=== PATIENT | male | born 1955 | race Caucasian/White ===

== ENCOUNTER 2020-07-18 09:08 | Outpatient (REF) | payer OTHER, SELFPAY ==
[2020-07-18 12:24] LABS: Anion Gap 14 (12-20); Blood Urea Nitrogen 18 mg/dL (9-16); Calcium 9.1 mg/dL (8.4-10.2); Carbon Dioxide 27 mmol/L (22-29); Chloride 103 mmol/L (96-108); Cholesterol 204 mg/dL; Estimated Glomerular Filt Rate > 60; Glucose Fasting 98 mg/dL (60-99); HDL Cholesterol 42 mg/dL; LDL Cholesterol Calculated 135 mg/dl; Potassium 4.7 mmol/l (3.3-5.1); Sodium 139 mmol/L (135-145); Triglycerides 139 mg/dL
[2020-07-18 12:47] LABS: TSH reflex Free T4 1.34 mIU/mL (0.32-4.0)
== END 2020-07-18 09:09 | disposition home or self-care (01) ==
LOC: HO.HMGCLDS 09:08
PROVIDERS: PCP Nurse Practitioner Family; Visit Provider Nurse Practitioner Family
DX: Z12.5 Encounter for screening for malignant neoplasm of prostate (principal); Z00.00 Encounter for general adult medical examination without abnormal findings
CPT/HCPCS: 80048; 80061; 84153; 84443

== ENCOUNTER 2021-01-10 09:07 | Outpatient (REF) | payer MEDICARE, SELFPAY ==
[2021-01-10 11:59] LABS: Alanine Aminotransferase 36 U/L (0-40); Albumin Level 4.5 g/dL (3.5-5.0); Alkaline Phosphatase 59 U/L (39-117); Anion Gap 14 (12-20); Aspartate Amino Transferase 30 U/L (5-37); Bilirubin Total 1.3 mg/dL (0.0-1.0); Blood Urea Nitrogen 19 mg/dL (9-16); Calcium 9.3 mg/dL (8.4-10.2); Carbon Dioxide 28 mmol/L (22-29); Chloride 103 mmol/L (96-108); Cholesterol 193 mg/dL; Estimated Glomerular Filt Rate > 60; Glucose Fasting 98 mg/dL (60-99); HDL Cholesterol 44 mg/dL; LDL Cholesterol Calculated 107 mg/dl; Potassium 4.1 mmol/L (3.3-5.1); Sodium 141 mmol/L (135-145); Total Protein 7.1 g/dL (6.5-8.0); Triglycerides 213 mg/dL
== END 2021-01-10 09:08 | disposition home or self-care (01) ==
LOC: HO.HMGCLDS 09:07
PROVIDERS: PCP Nurse Practitioner Family; Visit Provider Nurse Practitioner Family
DX: R00.1 Bradycardia, unspecified (principal)
CPT/HCPCS: 36415; 80053; 80061; 84443

== ENCOUNTER → 2021-02-15 09:09 | Outpatient (BNVA) | payer MEDICARE, SELFPAY | PROVIDERS: PCP Nurse Practitioner Family; Referring Provider Nurse Practitioner Family; Visit Provider Internal Medicine | DX: R00.1 Bradycardia, unspecified (principal); I10 Essential (primary) hypertension; Z79.899 Other long term (current) drug therapy | CPT/HCPCS: 99202 ==

== ENCOUNTER → 2021-02-21 08:30 | Outpatient (REF) | payer MEDICARE, SELFPAY ==
--- NOTE | 2021-02-21 08:34 | CA_ITS ---
Acquisition Time: 2021-02-21 08:45:24 Total Exercise Time: 00:09:31 Test Indications: BRADYCARDIA Medications: Protocol: DILCIA Max HR: 133 BPM 85% of Pred: 155 BPM Max BP: 178/082 mmHG Max Work Load: 10.9 METS Exercise stress test with exercise 9 min 31 sec of Dilcia protocol, without anginal symptoms, with isolated PVC 's and runs of ventricular bigeminy, mostly in stage 2, with blunted BP response with max BP during exercise 158/64 as reported by Tech and normal chronotropic response, achieving 87% MPHR, without EKG changes meeting criteria for ischemia. Test reviewed with Dr Fajardo. Referred By: Capo Fajardo Overread By: GENA RUBIO
--- NOTE | 2021-02-21 09:00 | ECG_ITS ---
Hook-up date: 2021-02-21 09:51:00 Duration: 25:22:00 Test Indications: UNSPEC. BRADYCARDIA Medications: 71514 QRS complexes 71 Ventricular ectopics which represent <1 % of total QRS comp. 337 Supraventricular ectopics which represent <1 % of total QRS comp. * Paced QRS complexs which represent % of total QRS comp. VENTRICULAR ECTOPY 71 Isolated 3 Bigeminal Cycles 0 Couplets 0 Runs 0 Beats in Runs * Beats LONGEST at * BPM at :: -- * Beats FASTEST at * BPM at :: -- SUPRAVENTRICULAR ECTOPY 306 Isolated 11 Couplets 3 Runs 9 Beats in Runs 3 Beats LONGEST at 163 BPM at 18:04:01 2021-02-21 3 Beats FASTEST at 189 BPM at 01:23:44 2021-02-22 HEART RATES 38 MIN at 02:17:59 2021-02-22 61 AVG 138 MAX at 11:55:40 2021-02-21 LONGEST RR 1.6880 secs at 02:24:12 2021-02-22 S-T LEVELS Channel 1 - 128 mm at 09:51:00 2021-02-21 - 128 mm at 09:51:00 2021-02-21 Channel 2 - 128 mm at 09:51:00 2021-02-21 - 128 mm at 09:51:00 2021-02-21 Channel 3 - 128 mm at 02:91:01 -- - 128 mm at 02:91:01 Underlying rhythm is sinus; Average ventriculr rate 61/min with range 38-138/min; About 45% of the time, rate <60/min; Likely sinus tachycardia episodes; Bradycardia more prominent during sleep hours; Patient did not report any symptoms in the diary Referred By: Laz Casillas Overread By: LAZ CASILLAS
== END ==
LOC: HO.CARD 08:30
PROVIDERS: Visit Provider Internal Medicine
DX: R00.1 Bradycardia, unspecified (principal)
CPT/HCPCS: 93016; 93017; 93018; 93225; 93226

== ENCOUNTER → 2021-04-09 09:15 | Outpatient (REF) | payer MEDICARE, SELFPAY ==
--- NOTE | 2021-04-09 09:24 | CA_ITS ---
Transthoracic Echocardiogram Patient (Last, First, Middle): Dimitri Chopra J Gender: Male Date of : 1955 Age: 65 Procedure Date: 04/09/2021 Procedure Type: Transthoracic Echocardiogram Location: OP Height: 167.64 cm Weight: 70.31 kg BSA: 1.79 m2 Heart Rate: bpm BP: 132 / 74 mmHg Tape Calender: Referring MD: Capo Fajardo MD Symptoms: R00.1 - Bradycardia, unspecified Study Quality: Good ECG Rhythm: Sinus bradycardia Conclusions: - The left ventricular systolic function is normal. The calculated ejection fraction is 58% by biplane method. - No obvious valvular pathology seen on this study. Findings Left Ventricle Normal left ventricular cavity size. There is normal left ventricular wall thickness. The left ventricular systolic function is normal. The calculated ejection fraction is 58% by biplane method. There is no evidence of regional wall motion abnormalities. Diastolic function is normal for age. Right Ventricle Normal right ventricular cavity size and systolic function. Atria Both atria are normal in size. Aortic Valve There is a normal trileaflet aortic valve. There is no aortic valve stenosis. There is no aortic valve regurgitation. Mitral Valve The mitral valve appears normal. There is trace mitral valve regurgitation. There is no mitral valve stenosis. Pulmonic Valve The pulmonic valve was not well visualized. There is trace pulmonic valve regurgitation. Tricuspid Valve Normal tricuspid valve structure. There is trace tricuspid valve regurgitation. The pulmonary artery systolic pressure is normal. Great Vessels The aortic annulus, sinuses of valsalva, and asc aorta are normal in size. Venous The inferior vena cava is normal in size and collapses greater than 50% with inspiration. Pericardium/Pleural There is no evidence of pericardial effusion. Prior Study Comparison No prior study available for comparison. Recommendations, Care & Conclusions No obvious valvular pathology seen on this study. Measurements 2D Linear Measurements RVIDd: 3.32 RVIDd Index: 1.85 IVSd: 1.04 0.6-0.9/0.6-1.0 cm LVIDd: 4.34 3.9-5.3/4.2-5.9 cm LVIDd Index: 2.42 2.4-3.2/2.2-3.1 cm/m2 LVIDs: 3.18 2.0-3.6 cm LVPWd: 1.05 0.7-1.1 cm Ao Root: 3.30 2.1-3.5 cm LA Diam: 3.40 2.7-3.8/3.0-4.0 cm LAIDs Index: 1.90 1.5-2.3 cm/m2 LV Mass: 191.47 67-162/88-224 g LV Mass Index: 106.96 43-95/49-115 g/m2 LVOT Diam: 2.40 3.0+(-)1.3 cm 2D Systolic Function EF 4C: 58.80 >55% EF 2C: 56.50 >55% EF BiP: 57.70 >55% Mitral Valve MV Pk E: 0.48 MV PK A: 0.60 MV Decel Time: 445.00 E/A: 0.80 E'Lateral: 9.57 E'Medial: 6.85 E/E' Med: 7.00 E/E' Lat: 5.00 Aortic Valve AoV Pk Patricio: 1.25 AoV Mn Patricio: 0.93 AoV VTI: 0.27 AoV Pk Grad: 6.00 Aov Mn Grad: 4.00 SARAVANAN Cont.VTI: 2.82 LVOT LVOT Pk Patricio: 0.91 LVOT Mn Patricio: 0.52 LVOT VTI: 0.17 LVOT Pk Grad: 3.00 LVOT Mn Grad: 1.00 LVOT Diam: 2.40 LVOT Area: 4.52 Diastolic Function MV Pk E: 0.48 MV Pk A: 0.60 E/A: 0.80 E'Medial: 6.85 E/E' Med: 7.00 E' Laterial: 9.57 E/E' Lat: 5.00 Tricuspid Valve TR Pk Patricio: 2.62 TR Pk Grad: 27.00 RA Press: 3.00 RVSP: 30.00 Great Vessels Aorta Ao Root-2D: 3.30 2.0-3.7 cm Ao Asc: 3.30 2.1-3.4 cm Ao Arch: 2.50 Updated in Other Vendor System with Status of Final Capo Fajardo MD electronically signed on 04/09/2021 10:55:52 AM with status of Final
== END ==
LOC: HO.CARD 09:15
PROVIDERS: PCP Nurse Practitioner Family; Visit Provider Internal Medicine
DX: R00.1 Bradycardia, unspecified (principal)
CPT/HCPCS: 93306

== ENCOUNTER → 2021-04-30 08:10 | Outpatient (BNVA) | payer MEDICARE, SELFPAY | PROVIDERS: PCP Nurse Practitioner Family; Referring Provider Nurse Practitioner Family; Visit Provider Internal Medicine | DX: R00.1 Bradycardia, unspecified (principal); I10 Essential (primary) hypertension | CPT/HCPCS: 99212 ==

== ENCOUNTER 2021-07-16 08:29 | Outpatient (REF) | payer MEDICARE, SELFPAY ==
[2021-07-16 11:42] LABS: Appearance Urine HAZY; Color Urine YELLOW; Glucose Urine UA NEG (NEG); Leukocyte Esterase Urine NEG (NEG); Nitrite Urine NEG (NEG); PH 5.5 (5.0-8.0); Specific Gravity - Urine >= 1.030 (1.005-1.025); Urine Blood NEG (NEG); Urine Ketones NEG (NEG); Urine Protein TRACE MG/DL (NEG-TRACE)
[2021-07-16 12:06] LABS: Alanine Aminotransferase 78 U/L (0-40); Albumin Level 4.8 g/dL (3.5-5.0); Alkaline Phosphatase 75 U/L (39-117); Anion Gap 15 (12-20); Aspartate Amino Transferase 70 U/L (5-37); Bilirubin Total 0.6 mg/dL (0.0-1.0); Blood Urea Nitrogen 13 mg/dL (9-16); Calcium 8.9 mg/dL (8.4-10.2); Carbon Dioxide 22 mmol/L (22-29); Chloride 106 mmol/L (96-108); Cholesterol 228 mg/dL; Estimated Glomerular Filt Rate > 60; Glucose Fasting 112 mg/dL (60-99); HDL Cholesterol 39 mg/dL; LDL Cholesterol Calculated 113 mg/dl; Potassium 4.4 mmol/L (3.3-5.1); Sodium 139 mmol/L (135-145); Total Protein 7.6 g/dL (6.5-8.0); Triglycerides 381 mg/dL
[2021-07-16 12:11] LABS: Prostate Specific Antigen Scr 0.35 ng/mL (<0.05-4.0)
== END 2021-07-16 08:30 | disposition home or self-care (01) ==
LOC: HO.HMGCLDS 08:29
PROVIDERS: PCP Nurse Practitioner Family; Visit Provider Nurse Practitioner Family
DX: Z12.5 Encounter for screening for malignant neoplasm of prostate (principal); I10 Essential (primary) hypertension
CPT/HCPCS: 36415; 80053; 80061; 81003; 84153; 84443

== ENCOUNTER 2021-10-10 14:06 | Outpatient (REF) | payer MEDICARE, SELFPAY ==
[2021-10-10 16:26] LABS: Alanine Aminotransferase 64 U/L (0-40); Albumin Level 4.3 g/dL (3.5-5.0); Alkaline Phosphatase 66 U/L (39-117); Aspartate Amino Transferase 46 U/L (5-37); Bilirubin Direct 0.3 mg/dL (0.0-0.5); Bilirubin Total 1.2 mg/dL (0.0-1.0); Total Protein 7.1 g/dL (6.5-8.0)
== END 2021-10-10 14:07 | disposition home or self-care (01) ==
LOC: HO.HMGCLDS 14:06
PROVIDERS: PCP Nurse Practitioner Family; Visit Provider Nurse Practitioner Family
DX: R74.8 Abnormal levels of other serum enzymes (principal)
CPT/HCPCS: 36415; 80076

== ENCOUNTER 2022-01-28 06:31 | Outpatient (REF) | payer MEDICARE, SELFPAY ==
--- NOTE | ~2022-01-28 | XR_ITS ---
EXAMINATION: XR CERVICAL SPINE CLINICAL INFORMATION: Cervical disc disorder COMPARISON: Previous x-ray November 2017 TECHNIQUE: 3 views of the cervical spine were obtained. FINDINGS: Bone alignment is normal. No fracture or dislocation is seen. There is degenerative spondylosis and degenerative disc disease from C4-C5 to C7-T1. Prevertebral soft tissues are normal. XR/XR cervical spine 2V IMPRESSION: Degenerative changes similar to 2018 exam.
[2022-01-28 06:48] LABS: MANUAL DIFF FLAG NO
[2022-01-28 07:36] LABS: Basophils Percent Auto 0.6 % (0-2); Eosinophils Absolute Auto 0.1 X10*3/uL (0.0-0.4); Eosinophils Percent Auto 2.5 % (0-4); Hematocrit 45.9 % (42.0-52.0); Imm Gran Abs Auto 0.01 X10*3/uL (0.00-0.03); Imm Gran Pct Auto 0.2 % (0.0-0.4); Lymphocytes Absolute Auto 1.5 X10*3/uL (1.2-4.9); Lymphocytes Percent Auto 30.7 % (20-40); Mean Corpuscular HGB Conc 34.9 g/dl (31.0-36.0); Mean Corpuscular Hemoglobin 30.5 pg (27.0-33.0); Mean Corpuscular Volume 87.4 fL (80.0-98.0); Mean Platelet Volume 9.4 fL (9.4-12.4); Monocytes Absolute Auto 0.5 X10*3/uL (0.1-1.2); Monocytes Percent Auto 10.3 % (2-11); Neutrophils Absolute Auto 2.6 x10*3/uL (2.0-8.3); Neutrophils Percent Auto 55.7 % (45-73); Platelet Count 146 X10*3/uL (160-400); Red Blood Count 5.25 X10*6/uL (4.60-5.80); Red Cell Distribution Width 12.8 % (11.0-16.0); White Blood Count 4.8 X10*3/uL (4.8-10.8)
[2022-01-28 08:01] LABS: Alanine Aminotransferase 49 U/L (0-40); Albumin Level 4.5 g/dL (3.5-5.0); Alkaline Phosphatase 70 U/L (39-117); Anion Gap 12 (12-20); Aspartate Amino Transferase 41 U/L (5-37); Bilirubin Total 1.4 mg/dL (0.0-1.0); Blood Urea Nitrogen 20 mg/dL (9-16); Calcium 9.5 mg/dL (8.4-10.2); Carbon Dioxide 28 mmol/L (22-29); Chloride 103 mmol/L (96-108); Cholesterol 214 mg/dL; Estimated Glomerular Filt Rate > 60; Glucose Fasting 104 mg/dL (60-99); HDL Cholesterol 39 mg/dL; LDL Cholesterol Calculated 143 mg/dl; Potassium 4.2 mmol/L (3.3-5.1); Sodium 139 mmol/L (135-145); Total Protein 7.3 g/dL (6.5-8.0); Triglycerides 162 mg/dL
[2022-01-28 08:29] LABS: TSH reflex Free T4 2.01 uIU/mL (0.32-4.0)
[2022-01-28 08:42] LABS: Appearance Urine CLEAR; Color Urine YELLOW; Glucose Urine UA NEG (NEG); Leukocyte Esterase Urine NEG (NEG); Nitrite Urine NEG (NEG); Specific Gravity - Urine 1.025 (1.005-1.025); Urine Blood NEG (NEG); Urine Ketones NEG (NEG); Urine Protein NEG (NEG-TRACE)
== END 2022-01-28 06:32 | disposition home or self-care (01) ==
LOC: HO.LAB 06:31
PROVIDERS: PCP Nurse Practitioner Family; Visit Provider Nurse Practitioner Family
DX: I10 Essential (primary) hypertension (principal); M50.90 Cervical disc disorder, unspecified, unspecified cervical region
CPT/HCPCS: 36415; 72040; 80053; 80061; 81003; 84443; 85025

== ENCOUNTER → 2022-01-29 12:23 | Outpatient (BNVA) | payer MEDICARE, SELFPAY | PROVIDERS: PCP Nurse Practitioner Family; Referring Provider Nurse Practitioner Family; Visit Provider Internal Medicine | DX: R00.1 Bradycardia, unspecified (principal); I10 Essential (primary) hypertension; G47.33 Obstructive sleep apnea (adult) (pediatric); Z79.899 Other long term (current) drug therapy | CPT/HCPCS: 93005; 99212 ==

== ENCOUNTER → 2022-02-27 10:01 | Outpatient (REF) | payer MEDICARE, SELFPAY ==
--- NOTE | 2022-02-27 10:18 | CA_ITS ---
Acquisition Time: 2022-02-27 10:57:33 Total Exercise Time: 00:08:42 Test Indications: bradycardia, unspecified Medications: Protocol: DILCIA Max HR: 142 BPM 92% of Pred: 154 BPM Max BP: 146/080 mmHG Max Work Load: 10.1 METS Exercise stress test with exercise 8 min 24 sec of Dilcia protocol achieving 92% MPHR. 10.1 METs, with request to stop due to fatigue, without shortness of breath or chest discomfort, with isolated PVCs, with accelerated junctional rhythm during all exercise and early recovery, with normotensive and normal chronotropic response to exercise, with borderline ST depression noted V4-V6 during exercise and early recovery. Test reviewed with Dr Fajardo Will order an exercise nuclear stress test to further eval for ischemia. Referred By: Capo Fajardo Overread By: GENA RUBIO
--- NOTE | 2022-02-27 10:18 | HM_ITS ---
Conclusion: 1. Patient was monitored for total period of 2 days and 23 hours 2. Baseline rhythm is normal sinus rhythm with average heart of 56 beats per minute 3. Frequent sinus bradycardia noted without significant pauses 4. Total of 1271 PACs accounting for 0.52% of total beats accounting for occasional PACs 5. Frequent episodes of SVT with longest episode lasting 2 minutes and 51 seconds at 117 beats per minute which could represent atrial tachycardia and/or ectopic atrial tachycardia 6. No patient reported events MTDD
== END ==
LOC: HO.SL 10:01
PROVIDERS: PCP Nurse Practitioner Family; Visit Provider Internal Medicine
DX: G47.33 Obstructive sleep apnea (adult) (pediatric) (principal); R00.1 Bradycardia, unspecified
CPT/HCPCS: 93017; 93242; 95806

== ENCOUNTER 2022-03-01 09:23 | Outpatient (REF) | payer MEDICARE, SELFPAY ==
[2022-03-02 09:06] LABS: Lyme Abs Screen <0.90 index
== END 2022-03-01 09:24 | disposition home or self-care (01) ==
LOC: HO.WFDLDS 09:23
PROVIDERS: Visit Provider Nurse Practitioner Family
DX: T14.8XXA Other injury of unspecified body region, initial encounter (principal); W57.XXXA Bitten or stung by nonvenomous insect and other nonvenomous arthropods, initial encounter
CPT/HCPCS: 36415; 86617; 86618

== ENCOUNTER → 2022-03-18 13:40 | Outpatient (BNVA) | payer MEDICARE, SELFPAY | PROVIDERS: PCP Nurse Practitioner Family; Visit Provider Internal Medicine | DX: G47.33 Obstructive sleep apnea (adult) (pediatric) (principal) | CPT/HCPCS: 99202 ==

== ENCOUNTER → 2022-03-26 07:53 | Outpatient (REF) | payer MEDICARE, SELFPAY ==
--- NOTE | ~2022-03-26 | NM_ITS ---
Exercise Myocardial perfusion study Indication: Abnormal cardiovascular study to evaluate for myocardial ischemia Technique: The patient was brought in for an exercise perfusion study on 03/26/2022. Patient performed exercise as per Kory protocol and was injected 25 mCi of sestamibi was given intravenously one target HR was achieved. Images were obtained using the SPECT gamma camera interlaced with the gating device. Images were obtained in supine position. Resting perfusion study was performed on 03/27/2022. Patient was administered 25 mCi of sestamibi intravenously at rest. Images were then obtained in supine position. Images obtained with and without CT attenuation. Total DLP 83 mGy-cm. Images were processed with the software and compared side to side in short axis, horizontal long axis and vertical long axis views. Findings: The stress perfusion study showed non attenuated images show mildly reduced uptake in the basal inferior wall of the LV myocardium. Remainder of the LV myocardium is normally perfused. Attenuation corrected images show mildly the apex of the LV myocardium.. The gated study shows normal LV systolic function with calculated LVEF of 60%. LV cavity is mildly dilated in size. The gated study shows normal systolic wall thickening and contraction of all segments. There is no transient ischemic dilation. Resting study shows nontender images show mildly reduced uptake in the basal inferior wall of the LV myocardium. Attenuation corrected images show diffusely reduced uptake in all segments intense subdiaphragmatic uptake interfering with inferior wall uptake. Gating at rest reveals normal systolic wall motion with ejection fraction at greater than 55%. The findings are consistent with likely normal myocardial perfusion. NM/NM cardiolite stress test Impression: 1. Normal myocardial perfusion 2. Gated LVEF is 60% 3. Transient ischemic dilatation not present Stress EKG is negative for ischemia
--- NOTE | 2022-03-26 07:57 | CA_ITS ---
Acquisition Time: 2022-03-26 08:04:27 Total Exercise Time: 00:09:30 Test Indications: Abnormal ECG Medications: ALLOPURINOL AMLODIPINE FLUOXETINE Protocol: DILCIA Max HR: 131 BPM 85% of Pred: 154 BPM Max BP: 136/080 mmHG Max Work Load: 10.1 METS Exercise stress test with exercise 9 min 30 sec of Dilcia protocol, ( stage 3 held for additional 30 sec), achieving 85% MPHR, without anginal symptoms, with lengthening of VA interval/ accelerated junctional rhythm during exercise, PVC and runs of bigeminy in early recovery, with normal VA interval at baseline and in later recovery, with blunted BP response to exercise, without EKG changes meeting criteria for ischemia. Nuclear images pending. Test reviewed with Dr Fajardo. Referred By: Sophia Colvin Overread By: SOPHIA COLVIN
== END ==
LOC: HO.CARD 07:53
PROVIDERS: PCP Nurse Practitioner Family; Visit Provider Nurse Practitioner Family
DX: I49.8 Other specified cardiac arrhythmias (principal); R94.39 Abnormal result of other cardiovascular function study; R00.1 Bradycardia, unspecified
CPT/HCPCS: 78452; 93017; A9500

== ENCOUNTER 2022-04-10 08:00 | Outpatient (RCR) | payer MEDICARE, SELFPAY ==
[2022-03-21 08:08] VITALS: BP 145/77; PULSE 45
--- NOTE | 2022-03-21 08:58 | MHC.PT.EP ---
[facility] [place] [facility] [place] [facility] [place] Office [address] [phone] F: [phone] F: [phone] F: [phone] F: [phone] Physical Therapy Plan of Care Date of Evaluation: Date of Surgery: NA Diagnosis: Cervical disc disorder, unspecified, unspecified cervical region Assessment: Dimitri is a 66 year old male who is referred to PT for cervical disc disease . He reports of having h/o chronic neck pain however his symptoms have gotten worse over the last 2 years. On PT examination he presented with 4/10 pain with neck rotation, bending, and lifting, TTP from C5 to C7, decreased joint mobility, decreased ROM- due pain and stiffness, decreased muscle strength, and altered posture. Due to these impairments he has difficulty performing ADLS requiring him to bend, lift and drive. He would benefit from skilled PT to address the aforementioned impairments and improve tolerance to functional activities. Pt recommended 2/week however due to high copay he would be coming only 1/week. Frequency and Duration: The patient will be seen 1/week for 8 weeks Short Term Goals: 1. Pt will be able to perform self mobs techniques to improve cervical rotation so as the enable with driving in 2 weeks. 2. Pt will have 50% decrease in pain at rest which will enable him to enjoy watching TV or read a book in 3 weeks. Outcomes Specialist Goals: 1. Pt will demonstrate an increase in scap and cervical muscle strength by 1 grade which will enable him to performing lifting with a pain no more than 2/10 in 6 weeks. 2. Pt will be independent with [facility] for symptom management and maintenance following d/c in 8 weeks. Treatment Plan: Modalities to reduce pain, spasms and effusion. Manual therapy to restore motion and function. Therapeutic exercise to improve strength and flexibility. Neuromuscular re-education for posture and balance. Therapeutic activities to return to functional activities of daily living. Electronically signed by: Cindy Henson PT DPT Please sign and return to therapist. Thank you for your referral.
--- NOTE | 2022-05-09 08:26 | MHC.PT.DC ---
[facility] [place] Office [place] Office [place] Office [address] Alok Sanchez [address] [phone] F: [phone] F: [phone] F: [phone] F: [phone] Physical Therapy Discharge Report Diagnosis: Cervical disc disorder, unspecified, unspecified cervical region Date of Surgery: NA Date of Evaluation: 03/21/22 Date of Discharge: 05/09/22 Treatments to Date: 4 Cancellations to Date: 0 No Shows to Date: 0 Discharge Status: Patient Elected to Stop Discharge Summary: Dimitri completed 4 PT visits. After about 4 visits he called and d/c himself. He did not provide any reason for d/c. Electronically signed by: Cindy Henson, PT DPT Please sign and return to therapist. Thank you for your referral.
== END 2022-05-09 08:26 | disposition home or self-care (01) ==
LOC: HO.PT 08:00
PROVIDERS: PCP Nurse Practitioner Family; Visit Provider Nurse Practitioner Family
DX: M50.90 Cervical disc disorder, unspecified, unspecified cervical region (principal)
CPT/HCPCS: 97112; 97140; 97161; 97530

== ENCOUNTER 2022-05-24 07:15 | Outpatient (REF) | payer MEDICARE, SELFPAY ==
[2022-05-24 07:29] LABS: MANUAL DIFF FLAG NO
[2022-05-24 07:33] LABS: Basophils Percent Auto 0.8 % (0-2); Eosinophils Absolute Auto 0.1 X10*3/uL (0.0-0.4); Eosinophils Percent Auto 2.4 % (0-4); Hematocrit 44.9 % (42.0-52.0); Hemoglobin 15.7 g/dl (14.0-18.0); Imm Gran Abs Auto 0.01 X10*3/uL (0.00-0.03); Imm Gran Pct Auto 0.2 % (0.0-0.4); Lymphocytes Absolute Auto 1.3 X10*3/uL (1.2-4.9); Mean Corpuscular Hemoglobin 30.5 pg (27.0-33.0); Mean Corpuscular Volume 87.2 fL (80.0-98.0); Mean Platelet Volume 8.8 fL (9.4-12.4); Monocytes Absolute Auto 0.6 X10*3/uL (0.1-1.2); Monocytes Percent Auto 11.3 % (2-11); Neutrophils Absolute Auto 2.9 x10*3/uL (2.0-8.3); Neutrophils Percent Auto 58.3 % (45-73); Platelet Count 153 X10*3/uL (160-400); Red Blood Count 5.15 X10*6/uL (4.60-5.80); Red Cell Distribution Width 12.6 % (11.0-16.0)
[2022-05-24 07:58] LABS: Alanine Aminotransferase 51 U/L (0-40); Albumin Level 4.4 g/dL (3.5-5.0); Alkaline Phosphatase 59 U/L (39-117); Anion Gap 12 (12-20); Aspartate Amino Transferase 40 U/L (5-37); Bilirubin Total 1.6 mg/dL (0.0-1.0); Blood Urea Nitrogen 18 mg/dL (9-16); Carbon Dioxide 28 mmol/L (22-29); Chloride 105 mmol/L (96-108); Cholesterol 162 mg/dL; Estimated Glomerular Filt Rate > 60; Glucose Fasting 110 mg/dL (60-99); HDL Cholesterol 46 mg/dL; LDL Cholesterol Calculated 92 mg/dl; Potassium 4.5 mmol/L (3.3-5.1); Sodium 140 mmol/L (135-145); Total Protein 6.8 g/dL (6.5-8.0); Triglycerides 124 mg/dL
== END 2022-05-24 07:16 | disposition home or self-care (01) ==
LOC: HO.LAB 07:15
PROVIDERS: PCP Nurse Practitioner Family; Visit Provider Nurse Practitioner Family
DX: R74.8 Abnormal levels of other serum enzymes (principal); E78.5 Hyperlipidemia, unspecified
CPT/HCPCS: 36415; 80053; 80061; 85025

== ENCOUNTER → 2022-05-28 12:32 | Outpatient (BNVA) | payer MEDICARE, SELFPAY | PROVIDERS: PCP Nurse Practitioner Family; Referring Provider Nurse Practitioner Family; Visit Provider Internal Medicine | DX: R00.1 Bradycardia, unspecified (principal); G47.33 Obstructive sleep apnea (adult) (pediatric); I10 Essential (primary) hypertension | CPT/HCPCS: 99212 ==

== ENCOUNTER → 2022-07-10 10:51 | Outpatient (BNVA) | payer MEDICARE, SELFPAY | PROVIDERS: PCP Nurse Practitioner Family; Visit Provider Internal Medicine | DX: G47.33 Obstructive sleep apnea (adult) (pediatric) (principal) | CPT/HCPCS: 99212 ==

== ENCOUNTER → 2022-10-10 10:28 | Outpatient (BNVA) | payer MEDICARE, SELFPAY | PROVIDERS: PCP Nurse Practitioner Family; Visit Provider Internal Medicine | DX: G47.33 Obstructive sleep apnea (adult) (pediatric) (principal) | CPT/HCPCS: 99212 ==

== ENCOUNTER 2022-12-27 06:21 | Outpatient (REF) | payer MEDICARE, SELFPAY ==
[2022-12-27 06:29] LABS: MANUAL DIFF FLAG NO
[2022-12-27 07:39] LABS: Appearance Urine Clear; Color Urine Yellow; Glucose Urine UA Negative (Negative); Leukocyte Esterase Urine Negative (Negative); Nitrite Urine Negative (Negative); PH 5.5 (5.0-9.0); Specific Gravity - Urine 1.025 (1.005-1.025); Urine Blood Negative (Negative); Urine Ketones Trace mg/dL (Negative); Urine Protein Negative (Neg-Trace)
[2022-12-27 07:39] LABS: Basophils Percent Auto 0.6 % (0-2); Eosinophils Absolute Auto 0.1 X10*3/uL (0.0-0.4); Eosinophils Percent Auto 2.6 % (0-4); Hematocrit 42.5 % (42.0-52.0); Hemoglobin 14.8 g/dl (14.0-18.0); Imm Gran Abs Auto 0.02 X10*3/uL (0.00-0.03); Imm Gran Pct Auto 0.4 % (0.0-0.4); Lymphocytes Absolute Auto 1.2 X10*3/uL (1.2-4.9); Mean Corpuscular HGB Conc 34.8 g/dl (31.0-36.0); Mean Corpuscular Volume 88.9 fL (80.0-98.0); Mean Platelet Volume 9.2 fL (9.4-12.4); Monocytes Absolute Auto 0.5 X10*3/uL (0.1-1.2); Neutrophils Absolute Auto 2.8 x10*3/uL (2.0-8.3); Neutrophils Percent Auto 59.4 % (45-73); Platelet Count 143 X10*3/uL (160-400); Red Blood Count 4.78 X10*6/uL (4.60-5.80); Red Cell Distribution Width 13.2 % (11.0-16.0); White Blood Count 4.7 X10*3/uL (4.8-10.8)
[2022-12-27 08:07] LABS: Alanine Aminotransferase 44 U/L (0-40); Albumin Level 4.3 g/dL (3.5-5.0); Alkaline Phosphatase 66 U/L (39-117); Anion Gap 12 (12-20); Aspartate Amino Transferase 51 U/L (5-37); Bilirubin Total 1.8 mg/dL (0.0-1.0); Blood Urea Nitrogen 22 mg/dL (9-16); Carbon Dioxide 27 mmol/L (22-29); Chloride 103 mmol/L (96-108); Cholesterol 159 mg/dL; Estimated Glomerular Filt Rate > 60; Glucose Fasting 82 mg/dL (60-99); HDL Cholesterol 47 mg/dL; LDL Cholesterol Calculated 91 mg/dl; Potassium 4.3 mmol/L (3.3-5.1); Sodium 138 mmol/L (135-145); Total Protein 6.5 g/dL (6.5-8.0); Triglycerides 105 mg/dL
[2022-12-27 08:24] LABS: Prostate Specific Antigen Scr 0.27 ng/mL (<0.05-4.0); TSH reflex Free T4 2.05 uIU/mL (0.32-4.0)
== END 2022-12-27 06:22 | disposition home or self-care (01) ==
LOC: HO.LAB 06:21
PROVIDERS: PCP Nurse Practitioner Family; Visit Provider Nurse Practitioner Family
DX: Z12.5 Encounter for screening for malignant neoplasm of prostate (principal); I10 Essential (primary) hypertension
CPT/HCPCS: 36415; 80053; 80061; 81003; 84153; 84443; 85025

== ENCOUNTER 2022-12-30 08:52 | Outpatient (REF) | payer MEDICARE, SELFPAY ==
--- NOTE | ~2022-12-30 | XR_ITS ---
EXAMINATION: XR CERVICAL SPINE CLINICAL INFORMATION: Cervical disc disorder. COMPARISON: 01/28/2022 and 12/16/2017. TECHNIQUE: 4 views of the cervical spine. FINDINGS: Study is limited on lateral view from C5 through C7 even with swimmer's view being performed. No abnormal prevertebral soft tissue swelling is seen. No acute cervical spine fracture is noted. There is anterior marginal spurring seen at multiple levels. There is some narrowing of the C5-C6 and C6-C7 disc spaces. XR/XR cervical spine 2V IMPRESSION: No definite acute cervical spine fracture identified. Cervical spondylosis most prominent at C5-C7.
== END 2022-12-30 08:53 | disposition home or self-care (01) ==
LOC: HO.HMGCX 08:52
PROVIDERS: PCP Nurse Practitioner Family; Visit Provider Nurse Practitioner Family
DX: M50.90 Cervical disc disorder, unspecified, unspecified cervical region (principal)
CPT/HCPCS: 72040

== ENCOUNTER 2023-02-11 06:21 | Outpatient (REF) | payer MEDICARE, SELFPAY ==
[2023-02-11 06:29] LABS: MANUAL DIFF FLAG NO
[2023-02-11 07:42] LABS: Basophils Absolute Auto 0.1 X10*3/uL (0.0-0.2); Basophils Percent Auto 0.7 % (0-2); Eosinophils Absolute Auto 0.1 X10*3/uL (0.0-0.4); Eosinophils Percent Auto 1.8 % (0-4); Hematocrit 44.7 % (42.0-52.0); Hemoglobin 15.3 g/dl (14.0-18.0); Imm Gran Abs Auto 0.03 X10*3/uL (0.00-0.03); Imm Gran Pct Auto 0.4 % (0.0-0.4); Lymphocytes Absolute Auto 1.5 X10*3/uL (1.2-4.9); Lymphocytes Percent Auto 20.7 % (20-40); Mean Corpuscular HGB Conc 34.2 g/dl (31.0-36.0); Mean Corpuscular Hemoglobin 30.6 pg (27.0-33.0); Mean Corpuscular Volume 89.4 fL (80.0-98.0); Mean Platelet Volume 9.8 fL (9.4-12.4); Monocytes Absolute Auto 0.8 X10*3/uL (0.1-1.2); Monocytes Percent Auto 10.4 % (2-11); Neutrophils Absolute Auto 4.8 x10*3/uL (2.0-8.3); Platelet Count 193 X10*3/uL (160-400); Red Cell Distribution Width 12.6 % (11.0-16.0); White Blood Count 7.2 X10*3/uL (4.8-10.8)
[2023-02-11 08:14] LABS: Alanine Aminotransferase 38 U/L (0-40); Albumin Level 4.3 g/dL (3.5-5.0); Alkaline Phosphatase 65 U/L (39-117); Anion Gap 13 (12-20); Aspartate Amino Transferase 32 U/L (5-37); Bilirubin Total 1.1 mg/dL (0.0-1.0); Blood Urea Nitrogen 25 mg/dL (9-16); Calcium 9.2 mg/dL (8.4-10.2); Carbon Dioxide 26 mmol/L (22-29); Chloride 108 mmol/L (96-108); Estimated Glomerular Filt Rate > 60; Gamma Glutamyl Transpeptidase 31 U/L (11-51); Glucose Random 87 mg/dL (60-115); Potassium 4.5 mmol/L (3.3-5.1); Sodium 142 mmol/L (135-145); Total Protein 6.6 g/dL (6.5-8.0)
[2023-02-11 08:20] LABS: Appearance Urine Clear; Color Urine Dark Yellow; Glucose Urine UA Negative (Negative); Leukocyte Esterase Urine Negative (Negative); Nitrite Urine Negative (Negative); PH 5.5 (5.0-9.0); Specific Gravity - Urine 1.025 (1.005-1.025); Urine Blood Negative (Negative); Urine Ketones Negative (Negative); Urine Protein Negative (Neg-Trace)
[2023-02-11 08:34] LABS: TSH reflex Free T4 2.34 uIU/mL (0.32-4.0)
== END 2023-02-11 06:22 | disposition home or self-care (01) ==
LOC: HO.LAB 06:21
PROVIDERS: PCP Nurse Practitioner Family; Visit Provider Nurse Practitioner Family
DX: D69.6 Thrombocytopenia, unspecified (principal); R74.8 Abnormal levels of other serum enzymes; I10 Essential (primary) hypertension; F41.1 Generalized anxiety disorder
CPT/HCPCS: 36415; 80053; 81003; 82977; 84443; 85025

== ENCOUNTER 2023-05-30 08:49 | Outpatient (REF) | payer MEDICARE, SELFPAY ==
--- NOTE | ~2023-05-30 | MR_ITS ---
EXAMINATION: MR CERVICAL SPINE WITHOUT CONTRAST CLINICAL INFORMATION: Cervical disc disorder. Stiff neck with decreased range of motion. COMPARISON: X-ray dated 12/30/2022. TECHNIQUE: Multiplanar, multisequential imaging of the cervical spine was performed without contrast. FINDINGS: VERTEBRAL BODIES AND PARASPINAL SOFT TISSUES: There are chronic fatty marrow degenerative endplate changes with severe disc space narrowing at the C5-C6 level and at the C6-C7 level where there is mild endplate edema as well. No compression fractures are seen. No significant subluxations evident. There is mild to moderate marrow edema in the C1 lateral masses anteriorly and in the odontoid process laterally, likely reactive to atlantoaxial degenerative joint disease. The paraspinal soft tissues are normal. The vertebral artery flow-voids are maintained. The imaged lung apices are grossly clear. CERVICOMEDULLARY JUNCTION AND VISUALIZED POSTERIOR FOSSA: The craniovertebral junction otherwise appears normal. The imaged portions of the brain are unremarkable. No cord signal abnormality or syrinx is seen. SPINAL LEVELS: C2-C3: No disc pathology. Severe left-sided facet arthropathy mild to moderate left foraminal encroachment. No central canal stenosis. C3-C4: Broad-based posterior disc bulge and thickening of ligamentum flavum with mild central canal stenosis and hypertrophic facet arthropathy. [id number] bilateral foraminal narrowing. C4-C5: Disc-osteophyte complex and mild posterior ligamentous thickening. No significant central canal stenosis. Severe right foraminal narrowing. Mild left foraminal narrowing. C5-C6: Disc-osteophyte complex with severe bilateral foraminal encroachment. No central canal stenosis. C6-C7: Broad-based posterior disc bulge and endplate spurring without central canal stenosis. Severe bilateral foraminal encroachment noted. C7-T1: No disc pathology. Mild facet arthropathy. No central canal stenosis or foraminal narrowing. MR/MR cervical spine wo con IMPRESSION: 1. Moderate mid to lower cervical spondylosis with severe right foraminal narrowing at the C4-C5 level and significant bilateral foraminal encroachment at the C5-C6 and C6-C7 levels. 2. Mild central canal stenosis at the C3-C4 level with [id number] foraminal narrowing due to facet spurring and uncovertebral joint hypertrophy. Mild posterior disc bulge. 3. Severe left-sided facet arthropathy at the C2-C3 level with mild to moderate left foraminal encroachment. 4. Mild to moderate marrow edema in the C1 lateral masses and in the odontoid process, likely reactive to atlantoaxial degenerative joint disease.
== END 2023-05-30 08:50 | disposition home or self-care (01) ==
LOC: HO.MRI 08:49
PROVIDERS: PCP Nurse Practitioner Family; Visit Provider Nurse Practitioner Family
DX: M50.90 Cervical disc disorder, unspecified, unspecified cervical region (principal)
CPT/HCPCS: 72141

== ENCOUNTER 2023-06-30 07:56 | Outpatient (AMB) | payer MEDICARE, SELFPAY ==
--- NOTE | 2023-06-30 08:07 | MHC.PC.OV ---
Vital Signs 06/30/23 08:08 Height 5 ft 6 in Weight 159 lb 2 oz BMI 25.7 BP 130/88 Blood Pressure Location Lt brachial Position Sitting Pulse 44 L Pulse Source Pulse Oximeter Pulse Oximetry (%) 97 Oxygen Delivery Method Room Air Intake Visit Reasons: PE Allergies No Known Allergies Allergy (Verified 06/30/23 08:10) Medication List - Last Reconciled 06/30/23 by MUSA Vanegas allopurinol 100 mg PO DAILY amlodipine 10 mg PO DAILY atorvastatin 10 mg PO BEDTIME fluoxetine 40 mg PO DAILY 90 days folic acid 1 mg PO DAILY lisinopril 5 mg PO DAILY multivitamin (Multiple Vitamins tablet) 1 tab PO DAILY thiamine HCl (vitamin B1) 100 mg PO DAILY Tobacco use date assessed: 06/30/23 Fall risk assessment: No Falls in past year Last assessed Fall Risk: 06/30/23 Dental Screening Dental Screen Date: 06/30/23 Did you have a dental visit in the last 12 months?: Yes Did you have a dental problem in the last 6 months where you did not have access to dental care?: No Was dental information given to patient?: Patient has dentist HPI PE HPI Details Pt is here for a PE. Will order labs. PSA is up to date. Denies dribbling with urination, weak stream, and nocturia. 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 Pt reports having vaccinations recently but he does not know what they were. He will find out and let me know. Pt sees cardiology for his bradycardia (which was also noted on EKG today) PFSH Medical History COVID-19 vaccine series completed Gout Depression GANESH (obstructive sleep apnea) Essential hypertension Erectile dysfunction Surgical History H/O colonoscopy History of tonsillectomy Family History Father Unknown family medical history Mother Unknown family medical history Social History Housing: House Alcohol intake: current Patient Tobacco Use Status: Never used Tobacco e-Cigarette/Vaping Use: Never Used Second Hand Smoke Exposure: No service: No Current occupational status: retired Cognitive needs: No Hearing needs: No Vision needs: No Questionnaire Thrive Questionnaire Date Thrive assessed: 01/14/22 INOCENTE-7 AMB Questionnaire INOCENTE-7 Date INOCENTE - 7 assessed: 01/14/22 Source: Developed by Drs. Dwain Duncan, Valentine Samson, Jas Lees and colleagues, with an educational padmini from [employer]. Review of Systems Const Denies chills and Denies fever(s) Eyes Denies blurry vision ENT Denies vertigo, Denies dizziness and Denies sore throat Card Denies chest pain at rest, Denies chest pain with activity, Denies diaphoresis, Denies dyspnea and Denies dyspnea on exertion Resp Denies cough, Denies dyspnea, Denies dyspnea on exertion and Denies wheezing GI Denies abdominal pain, Denies melena, Denies hematochezia, Denies constipation, Denies diarrhea and Denies loose stools Denies hematuria Musc Denies numbness and Denies tingling Skin/Breast Denies lesions Neuro Denies vertigo, Denies dizziness, Denies numbness and Denies tingling Psych Denies anxiety, Denies depression, Denies homicidal ideation, Denies suicidal ideation and Denies other (substance abuse) Aller/Immun Denies wheezing Physical exam (Primary Care) Vital Signs: Last Vital Signs Pulse 44 L 06/30/23 08:08 BP 130/88 06/30/23 08:08 Pulse Ox 97 06/30/23 08:08 Oxygen Delivery Method Room Air 06/30/23 08:08 BMI result Body Mass Index 25.7 Tobacco/Smoking Status: Tobacco use Status Tobacco use date assessed 06/30/23 06/30/23 08:11 Patient Tobacco Use Status Never used Tobacco 06/30/23 08:11 e-Cigarette/Vaping Use Never Used 06/30/23 08:11 Thrive Assessment: Date of Thrive Assessment Date Thrive assessed 01/14/22 06/30/23 08:11 Const General: cooperative Nutritional Appearance: well nourished Orientation/consciousness: patient oriented x3 HENMT Head: Yes normal to inspection, Yes normocephalic and Yes atraumatic Ears: TM's normal bilaterally Eyes General: appearance normal, both eyes and all related structures Alignment and Position: alignment normal and position normal Neck Neck: Yes normal visual inspection and Yes no lymphadenopathy Thyroid: Thyroid normal Resp Effort & Inspection: normal respiratory effort Auscultation: clear to auscultation bilaterally Cardio Rate: bradycardic Rhythm: regular rhythm Heart sounds: S1 normal heart sound present, S2 normal heart sound present and no murmurs GI Palpation (GI): Soft to palpation and nontender Auscultation: normal bowel sounds Male General Exam: Yes normal external exam Penis: normal penis Skin Rashes: no rashes Neuro General: patient oriented x3, moves all extremities, no focal motor deficits and deep tendon reflexes 2+ bilaterally Romberg Test: Negative Psych Appearance: grossly normal Mental Status: mental status grossly normal Speech and movement: Normal speech and movement present Affect: normal affect Attitude: cooperative Thought process: Normal thought process present Thought content: Normal thought content present Insight: Good insight present (Psych) Judgement: Good judgement present (Psych) Assessment and Plan Assessment & Plan (1) Physical exam: Code(s): Z - Encounter for general adult medical examination without abnormal findings Plan: Labs ordered Plan The patient agreed to the use of a medical language specialist for this encounter. Scribed for TIARA Earl-MENA by Tere Espinoza medical language specialist, on 06/30/2023 at 08:20 EST Orders: Orders TSH reflex Free T4 Today Z00. - Encounter for general adult medical examination without abnormal findings UA CC w/rflx Micro + Cult Today Z. - Encounter for general adult medical examination without abnormal findings Lipid Panel Today Z. - Encounter for general adult medical examination without abnormal findings AMB EKG-In Office Today Z00. - Encounter for general adult medical examination without abnormal findings Complete Blood Count Auto Diff Today Z00. - Encounter for general adult medical examination without abnormal findings Comprehensive [place]. Panel Fast Today Z. - Encounter for general adult medical examination without abnormal findings Coding Level of Care Code Est Pt Prev Care >65y(45094) Diagnoses Physical exam Z00.
[2023-06-30 08:08] VITALS: BP 130/88; PULSE 44; O2SAT 97; BMI 25.7
== END 2023-06-30 08:53 | disposition home or self-care (01) ==
PROVIDERS: Visit Provider Nurse Practitioner Family
DX: Z00.00 Encounter for general adult medical examination without abnormal findings (principal)
CPT/HCPCS: 99397

== ENCOUNTER 2023-06-30 09:02 | Outpatient (REF) | payer MEDICARE, SELFPAY ==
[2023-06-30 11:30] LABS: Appearance Urine Clear; Color Urine Dark Yellow; Glucose Urine UA Negative (Negative); Leukocyte Esterase Urine Negative (Negative); Nitrite Urine Negative (Negative); PH 5.5 (5.0-9.0); Specific Gravity - Urine >= 1.030 (1.005-1.025); Urine Blood Negative (Negative); Urine Ketones Negative (Negative); Urine Protein Negative (Neg-Trace)
[2023-06-30 11:33] LABS: MANUAL DIFF FLAG NO
[2023-06-30 11:55] LABS: Basophils Percent Auto 0.5 % (0-2); Eosinophils Absolute Auto 0.1 X10*3/uL (0.0-0.4); Eosinophils Percent Auto 2.4 % (0-4); Hemoglobin 15.5 g/dl (14.0-18.0); Imm Gran Abs Auto 0.02 X10*3/uL (0.00-0.03); Imm Gran Pct Auto 0.3 % (0.0-0.4); Lymphocytes Absolute Auto 1.5 X10*3/uL (1.2-4.9); Lymphocytes Percent Auto 25.3 % (20-40); Mean Corpuscular HGB Conc 34.4 g/dl (31.0-36.0); Mean Corpuscular Hemoglobin 30.3 pg (27.0-33.0); Mean Corpuscular Volume 87.9 fL (80.0-98.0); Mean Platelet Volume 9.4 fL (9.4-12.4); Monocytes Absolute Auto 0.7 X10*3/uL (0.1-1.2); Monocytes Percent Auto 11.4 % (2-11); Neutrophils Absolute Auto 3.5 x10*3/uL (2.0-8.3); Neutrophils Percent Auto 60.1 % (45-73); Platelet Count 160 X10*3/uL (160-400); Red Blood Count 5.12 X10*6/uL (4.60-5.80); Red Cell Distribution Width 12.8 % (11.0-16.0); White Blood Count 5.9 X10*3/uL (4.8-10.8)
[2023-06-30 12:34] LABS: Alanine Aminotransferase 44 U/L (0-40); Albumin Level 4.4 g/dL (3.5-5.0); Alkaline Phosphatase 57 U/L (39-117); Anion Gap 11 (12-20); Aspartate Amino Transferase 35 U/L (5-37); Bilirubin Total 1.1 mg/dL (0.0-1.0); Blood Urea Nitrogen 17 mg/dL (9-16); Calcium 9.4 mg/dL (8.4-10.2); Carbon Dioxide 26 mmol/L (22-29); Chloride 106 mmol/L (96-108); Cholesterol 138 mg/dL (<200); Estimated Glomerular Filt Rate > 60; Glucose Fasting 100 mg/dL (60-99); HDL Cholesterol 40 mg/dL (>40); LDL Cholesterol Calculated 72 mg/dL (<100); Potassium 4.1 mmol/L (3.3-5.1); Sodium 139 mmol/L (135-145); TSH reflex Free T4 1.22 uIU/mL (0.32-4.0); Total Protein 7.1 g/dL (6.5-8.0); Triglycerides 131 mg/dL (<150)
== END 2023-06-30 09:03 | disposition home or self-care (01) ==
LOC: HO.HMGCLDS 09:02
PROVIDERS: PCP Nurse Practitioner Family; Visit Provider Nurse Practitioner Family
DX: Z00.00 Encounter for general adult medical examination without abnormal findings (principal); Z20.2 Contact with and (suspected) exposure to infections with a predominantly sexual mode of transmission; I10 Essential (primary) hypertension; E78.5 Hyperlipidemia, unspecified
CPT/HCPCS: 36415; 80053; 80061; 81003; 84443; 85025

== ENCOUNTER 2023-07-23 08:42 | Outpatient (AMB) | payer MEDICARE, SELFPAY ==
--- NOTE | 2023-07-23 09:21 | HO.SPINEOV ---
Intake Intake Visit Reasons: Neck pain Intake Note: Mr. Chopra is here today c/o neck pain. MRI done @ [facility] [place]. [employer] Required: No Allergies No Known Allergies Allergy (Verified 06/30/23 08:10) Assessment & Plan Assessment & Plan (1) Cervical neck pain with evidence of disc disease: Code(s): M50.90 - Cervical disc disorder, unspecified, unspecified cervical region Plan Dear colleague Thank you for referring Dimitri Chopra to the office today with a chief complaint of chronic, progressive neck pain. HPI: This 67-year-old male is suffering from longstanding chronic neck pain with a progression in the last 6 months. He states that he has constant neck pain in all directions and less mobility in his neck. He denies radiating pain down his arms. He denies headaches. Pain is located in the posterior cervical spine. It is difficult find a comfortable position. He denies weakness or numbness. He has not tried Tylenol or injections. He did do physical therapy in the past. PMH: Bradycardia, hypertension, depression and carpal tunnel release Medications: Allopurinol, lisinopril, atorvastatin, amlodipine, fluoxetine, calcium and vitamin-D Allergies: NKDA Social history: , retired, nonsmoker Physical Exam: Pleasant male in obvious agony. The cervical spine motion is restricted in all directions. There is pain on palpation over the posterior midline. No sensory or motor deficits. No pathological reflexes. Gait is undisturbed. Radiological Studies: MRI done at [facility] [place] shows severe degenerative disc disease C5-6 and C6-C7 with severe bilateral foraminal stenosis at these levels. No spinal cord compression. Impression/Plan: The patient is suffering from progressive neck pain that could be related to the degenerative disc disease C5-6 and C6-7. I would like him to complete conservative treatments in the form of [id number] medication and I would like him to be evaluated by pain management before I would consider doing a 2 level anterior diskectomy and fusion. I explained rationale behind my plan to the patient and he agreed. He will contact my office to discuss surgery if conservative measurements are failing. Thank you for allowing me to participate in your patients care. total time spent was 50 minutes in counseling ,coordination of plan, personal review of imaging, and subsequent plan Romie Khalil MD, PhD Spine Fellowship Trained Neurosurgeon Director, [facility] Orders: Referrals Pain Management Referral M50.90 - Cervical disc disorder, unspecified, unspecified cervical region Coding Level of Care Code New Pt Level 4 (90558) Diagnoses Cervical neck pain with evidence of disc disease M50.90
== END 2023-07-23 09:41 | disposition home or self-care (01) ==
PROVIDERS: PCP Nurse Practitioner Family; Referring Provider Nurse Practitioner Family; Visit Provider Neurological Surgery
DX: M50.90 Cervical disc disorder, unspecified, unspecified cervical region (principal)
CPT/HCPCS: 99204

== ENCOUNTER → 2023-07-23 08:42 | Outpatient (BNVA) | payer MEDICARE, SELFPAY | PROVIDERS: PCP Nurse Practitioner Family; Referring Provider Nurse Practitioner Family; Visit Provider Neurological Surgery ==

== ENCOUNTER 2023-07-30 11:12 | Outpatient (AMB) | payer MEDICARE, SELFPAY ==
[2023-07-30 11:32] VITALS: BP 126/69; PULSE 47; RESP 12; O2SAT 98; BMI 25.8
--- NOTE | 2023-07-30 11:32 | MHC.OFFVIS ---
Intake Vital Signs 07/30/23 11:32 Height 5 ft 6 in Weight 160 lb BMI 25.8 BP 126/69 Blood Pressure Location Lt brachial Position Sitting Respiration 12 Pulse 47 L Pulse Source Pulse Oximeter Pulse Oximetry (%) 98 Oxygen Delivery Method Room Air Intake Visit Reasons: Cervical Disc Disorder, Unspecified /Confirmed Allergies No Known Allergies Allergy (Verified 07/30/23 11:33) Medication List - Last Reconciled 07/30/23 by Mary Siddiqi LPN allopurinol 100 mg PO DAILY amlodipine 10 mg PO DAILY atorvastatin 10 mg PO BEDTIME fluoxetine 40 mg PO DAILY 90 days folic acid 1 mg PO DAILY lisinopril 5 mg PO DAILY multivitamin (Multiple Vitamins tablet) 1 tab PO DAILY thiamine HCl (vitamin B1) 100 mg PO DAILY HPI HPI Comments History of Present Illness Details Dimitri is very pleasant 67 years old gentleman who presents in my office with complains on pain in the center of his lower neck. He reports that this pain started about 1 year ago and greatly got exacerbated about 6 months ago. He thinks that he has pain is coming from neck arthritis. He went for consultation with Dr. Smith and he was sent for pain management evaluation here. He reports that he cannot sleep normally because of his pain but he can do activities of daily living he can take care of himself he can not function normally. He is retired individual. He is self mobile. He reports his pain 8/10. In terms of tissue damage he reports his pain is dull, circ, hurting, aching, heavy sensation. He had extensive course of physical therapy he started 1 year ago and he continues home exercise program however he did not feel any improvement from neither physical therapy nor home exercise programs. He received MRI in [facility] results of which dictated as below. He went for consult with Dr. Smith. His past medical history significant for hypertension gout arthritis and non symptomatic bradycardia. His past surgical history significant for carpal tunnel surgery pain he denies smoking cigarettes drinking alcohol to cans of beer a day he drinks caffeinated beverages to office today and he denies recreational drugs. [facility] Medical History COVID-19 vaccine series completed Gout Depression GANESH (obstructive sleep apnea) Essential hypertension Erectile dysfunction Surgical History H/O colonoscopy History of tonsillectomy Family History Father Unknown family medical history Mother Unknown family medical history Social History Housing: House Alcohol intake: current Patient Tobacco Use Status: Never used Tobacco e-Cigarette/Vaping Use: Never Used Second Hand Smoke Exposure: No service: No Current occupational status: retired Cognitive needs: No Hearing needs: No Vision needs: No Review of Systems Const Denies chills and Denies fever(s) Eyes Denies blurry vision ENT Reports Normal hearing present, Denies vertigo, Denies dizziness and Denies sore throat Card Denies chest pain at rest, Denies chest pain with activity, Denies diaphoresis, Denies dyspnea and Denies dyspnea on exertion Resp Denies cough, Denies dyspnea, Denies dyspnea on exertion and Denies wheezing GI Denies abdominal pain, Denies melena, Denies hematochezia, Denies constipation, Denies diarrhea and Denies loose stools Denies hematuria Musc Denies numbness and Denies tingling Skin/Breast Denies lesions Neuro Reports Normal hearing present, Denies Abnormal speech present, Denies vertigo, Denies dizziness, Denies numbness, Denies Sensory deficit (Neuro) and Denies tingling Psych Denies anxiety, Denies depression, Denies homicidal ideation, Denies suicidal ideation and Denies other (substance abuse) Aller/Immun Denies wheezing Physical Exam Vital Signs: Last Vital Signs Pulse 47 L 07/30/23 11:32 Resp 12 07/30/23 11:32 BP 126/69 07/30/23 11:32 Pulse Ox 98 07/30/23 11:32 Oxygen Delivery Method Room Air 07/30/23 11:32 BMI result Body Mass Index 25.8 Const General: no acute distress Nutritional Appearance: average body habitus and well nourished Orientation/consciousness: patient oriented x3 Eyes General: appearance normal, both eyes and all related structures Pupils: Equal, round and reactive pupils present EOM: EOMs intact bilaterally Neck Other: Flexing neck forward and flexing neck backwards aggravates his pain however flexing backwards aggravate his pain more than flexing forward. He denies Valsalva maneuver, coughing, sneezing, aggravates his pain. He denies pelvic organ dysfunction. He denies incontinence with urine and/or stool he denies urinary retention. He denies pain radiating into bilateral upper extremities. Reflexes are symmetric bilaterally. Axial compression on the neck does not aggravate his pain. Spurling maneuver does not aggravate his pain. Lhermitte test is negative. Neck: No full ROM Chest Chest palpation & inspection: normal inspection of the chest Resp Effort & Inspection: normal respiratory effort, able to speak in complete sentences, normal respiratory pattern, no audible wheezes and no cough Cardio Jugular venous distension: no JVD GI Inspection: Yes normal to inspection Neuro General: patient oriented x3 and gait normal Cranial nerves: Yes CN's II-XII intact bilaterally, Yes Equal, round and reactive pupils present, Yes Normal hearing present and Yes Ability to bilaterally elevate shoulders present Speech: No Abnormal speech present Gait exam (Neuro): Normal gait present Motor exam (neuro): 5/5 motor strength present throughout Sensory Exam: No Sensory deficit (Neuro) Extrem General: No pedal edema Psych Speech and movement: Normal speech and movement present Affect: normal affect Attitude: cooperative Thought process: Normal thought process present Thought content: Normal thought content present Insight: Good insight present (Psych) Judgement: Good judgement present (Psych) Results Reviewed Results Reviewed: MR CERVICAL SPINE WITHOUT CONTRAST CLINICAL INFORMATION: Cervical disc disorder. Stiff neck with decreased range of motion. COMPARISON: X-ray dated 12/30/2022. TECHNIQUE: Multiplanar, multisequential imaging of the cervical spine was performed without contrast. FINDINGS: VERTEBRAL BODIES AND PARASPINAL SOFT TISSUES: There are chronic fatty marrow degenerative endplate changes with severe disc space narrowing at the C5-C6 level and at the C6-C7 level where there is mild endplate edema as well. No compression fractures are seen. No significant subluxations evident. There is mild to moderate marrow edema in the C1 lateral masses anteriorly and in the odontoid process laterally, likely reactive to atlantoaxial degenerative joint disease. The paraspinal soft tissues are normal. The vertebral artery flow-voids are maintained. The imaged lung apices are grossly clear. CERVICOMEDULLARY JUNCTION AND VISUALIZED POSTERIOR FOSSA: The craniovertebral junction otherwise appears normal. The imaged portions of the brain are unremarkable. No cord signal abnormality or syrinx is seen. SPINAL LEVELS: C2-C3: No disc pathology. Severe left-sided facet arthropathy mild to moderate left foraminal encroachment. No central canal stenosis. C3-C4: Broad-based posterior disc bulge and thickening of ligamentum flavum with mild central canal stenosis and hypertrophic facet arthropathy. [id number] bilateral foraminal narrowing. C4-C5: Disc-osteophyte complex and mild posterior ligamentous thickening. No significant central canal stenosis. Severe right foraminal narrowing. Mild left foraminal narrowing. C5-C6: Disc-osteophyte complex with severe bilateral foraminal encroachment. No central canal stenosis. C6-C7: Broad-based posterior disc bulge and endplate spurring without central canal stenosis. Severe bilateral foraminal encroachment noted. C7-T1: No disc pathology. Mild facet arthropathy. No central canal stenosis or foraminal narrowing. IMPRESSION: 1. Moderate mid to lower cervical spondylosis with severe right foraminal narrowing at the C4-C5 level and significant bilateral foraminal encroachment at the C5-C6 and C6-C7 levels. 2. Mild central canal stenosis at the C3-C4 level with [id number] foraminal narrowing due to facet spurring and uncovertebral joint hypertrophy. Mild posterior disc bulge. 3. Severe left-sided facet arthropathy at the C2-C3 level with mild to moderate left foraminal encroachment. 4. Mild to moderate marrow edema in the C1 lateral masses and in the odontoid process, likely reactive to atlantoaxial degenerative joint disease. Assessment & Plan Assessment & Plan (1) Spondylosis of cervical region without myelopathy or radiculopathy: Code(s): M47.812 - Spondylosis without myelopathy or radiculopathy, cervical region (2) Chronic pain syndrome: Code(s): G89.4 - Chronic pain syndrome Plan This patient was diagnosed with thrombocytopenia in the past however currently his platelets are normal. I do not see any contraindications to perform diagnosis C4-C5 C6 medial branch block bilateral and I will schedule him for this procedure without sedation. I personally do not believe this patient has any radiculopathy in the cervical spine and I do not think surgical interventions would be appropriate for this patient. The results of diagnostic medial branch block would be promising I can probably offered this patient sprint PNS to help his pain on the longer run. Patient Instructions: I explained the patient all the risks and benefits of the planned procedure, examined the patient, examined patient's laboratory data, and organizing this note. It took me 55 minutes to complete the work and the chart. Coding Level of Care Code New Pt Level 4 (31456) Diagnoses Spondylosis of cervical region without myelopathy or radiculopathy M47.812 Chronic pain syndrome G89.4
== END 2023-07-30 12:01 | disposition home or self-care (01) ==
PROVIDERS: PCP Nurse Practitioner Family; Referring Provider Neurological Surgery; Visit Provider Anesthesiology
DX: M47.812 Spondylosis without myelopathy or radiculopathy, cervical region (principal); G89.4 Chronic pain syndrome
CPT/HCPCS: 99204

== ENCOUNTER → 2023-07-30 11:12 | Outpatient (BNVA) | payer MEDICARE, SELFPAY | PROVIDERS: PCP Nurse Practitioner Family; Referring Provider Neurological Surgery; Visit Provider Anesthesiology | DX: M47.812 Spondylosis without myelopathy or radiculopathy, cervical region (principal); G89.4 Chronic pain syndrome | CPT/HCPCS: 99202 ==

== ENCOUNTER 2023-09-16 05:13 | Outpatient (REF) | payer MEDICARE, SELFPAY ==
--- NOTE | ~2023-09-16 | FL_ITS ---
EXAMINATION: XR FLUOROSCOPY WITH IMAGES CLINICAL INFORMATION: Spondylosis without myelopathy or radiculopathy, cervical region. COMPARISON: None available. TECHNIQUE: Fluoroscopy Supervised By: Dr. Jose Nicholas. Fluoroscopy Time: 0.6 minutes. Cumulative Dose: 3.05 mGy. DAP: 0.0382 Gycm2. Images: 7. FINDINGS: Images demonstrate needle placement and contrast injection adjacent to the bilateral lateral C3, C4 and C5 vertebrae FL/FL guidance in treatment room IMPRESSION: Fluoroscopy guidance for pain management procedure.
== END 2023-09-16 05:14 | disposition home or self-care (01) ==
LOC: CF 05:13
PROVIDERS: Visit Provider Anesthesiology
DX: M47.812 Spondylosis without myelopathy or radiculopathy, cervical region (principal); G89.4 Chronic pain syndrome
CPT/HCPCS: 64490; 64491; J2795; Q9967

== ENCOUNTER 2023-09-16 07:14 | Outpatient (AMB) | payer MEDICARE, SELFPAY ==
--- NOTE | 2023-09-16 07:24 | MHC.OFFVIS ---
Intake Vital Signs 09/16/23 07:25 09/16/23 08:28 Height 5 ft 6 in 5 ft 6 in Weight 160 lb 160 lb BMI 25.8 25.8 BP 132/78 128/84 Blood Pressure Location Lt brachial Lt brachial Position Sitting Sitting Respiration 16 18 Pulse 62 63 Pulse Source Pulse Oximeter Pulse Oximeter Pulse Oximetry (%) 99 99 Oxygen Delivery Method Room Air Room Air Comment Pre-Op post-op Intake Visit Reasons: BILAT DX C4-C5-C6 MBB/LOCAL Allergies No Known Allergies Allergy (Verified 09/16/23 08:28) PFSH Medical History COVID-19 vaccine series completed Gout Depression GANESH (obstructive sleep apnea) Essential hypertension Erectile dysfunction Surgical History H/O colonoscopy History of tonsillectomy Family History Father Unknown family medical history Mother Unknown family medical history Social History Housing: House Alcohol intake: current Patient Tobacco Use Status: Never used Tobacco e-Cigarette/Vaping Use: Never Used Second Hand Smoke Exposure: No service: No Current occupational status: retired Cognitive needs: No Hearing needs: No Vision needs: No Physical Exam Vital Signs: Last Vital Signs Pulse 63 09/16/23 08:28 Resp 18 09/16/23 08:28 BP 128/84 09/16/23 08:28 Pulse Ox 99 09/16/23 08:28 Oxygen Delivery Method Room Air 09/16/23 08:28 BMI result Body Mass Index 25.8 Assessment & Plan Assessment & Plan (1) Spondylosis of cervical region without myelopathy or radiculopathy: Code(s): M47.812 - Spondylosis without myelopathy or radiculopathy, cervical region Plan: Bilatera C4-C4- C6 diagnostic medial branch block. ?Informed consent was explained to the patient. All questions were explained and answered.? The patient was taken inside the operating room where he was positioned prone on the operating table. Time-out was performed delineating correct site, side, the nature of the procedure, patient's allergy, preoperative antibiotic if needed.? All operating room staff was participating in OR time-out procedure. The back of the neck and upper back were prepped with ChloraPrep and draped with sterile self adhesive utility towels.? Sterilely draped C-arm was brought over the operating field and sq picture of? C4-C5-C6 vertebrae were delineated on the screen.? Points of interest were delineated as lateral masses bilaterally of the vertebrae as above. The waste of each lateral mass was chosen as the target of the tip of the needles on AP view and lateral view was used as a safety view for the tips of the needles position.?? The projections of the point of interest to the skin were injected with the small amount of local anesthetic lidocaine 2% 1-1.5 cc.? After that 22 gauge 3and 1/2 inch? spinal needles were driven to the point of interest in tunnel vision fashion. After needles gently contacted the bone at the point of interests the needle was injected with small amount of the contrast. The injections did not demonstrate intravascular or intrathecal spread.. After that ropivacaine 0.5%-1cc. was injected into each location of the needles. Upon completion of the injections the needles were removed and sterile dressings were applied, the patient was a taken? outside of the operating room to recovery room where he recovered uneventfully. (2) Chronic pain syndrome: Code(s): G89.4 - Chronic pain syndrome Plan This patient was diagnosed with thrombocytopenia in the past however currently his platelets are normal. I do not see any contraindications to perform diagnosis C4-C5 C6 medial branch block bilateral and I will schedule him for this procedure without sedation. I personally do not believe this patient has any radiculopathy in the cervical spine and I do not think surgical interventions would be appropriate for this patient. The results of diagnostic medial branch block would be promising I can probably offered this patient sprint PNS to help his pain on the longer run. Orders: Orders FL guidance in treatment room Today M47.812 - Spondylosis without myelopathy or radiculopathy, cervical region Coding Level of Care Code Procedure Only Diagnoses Spondylosis of cervical region without myelopathy or radiculopathy M47.812 Chronic pain syndrome G89.4
[2023-09-16 07:25] VITALS: BP 132/78; PULSE 62; RESP 16; O2SAT 99; BMI 25.8
[2023-09-16 08:28] VITALS: BP 128/84; PULSE 63; RESP 18; O2SAT 99; BMI 25.8
== END 2023-09-16 08:14 | disposition home or self-care (01) ==
LOC: HO.PMCPRC 07:14
PROVIDERS: PCP Nurse Practitioner Family; Visit Provider Anesthesiology
DX: M47.812 Spondylosis without myelopathy or radiculopathy, cervical region (principal); G89.4 Chronic pain syndrome
CPT/HCPCS: 64490; 64491

== ENCOUNTER 2023-09-18 08:56 | Outpatient (AMB) | payer MEDICARE, SELFPAY ==
--- NOTE | 2023-09-18 08:59 | MHC.OFFVIS ---
Intake Vital Signs 09/18/23 09:31 Height 5 ft 6 in Weight 162 lb 2 oz BMI 26.2 BP 132/72 Blood Pressure Location Lt brachial Position Sitting Respiration 17 Pulse 45 L Pulse Source Pulse Oximeter Pulse Oximetry (%) 97 Oxygen Delivery Method Room Air Intake Visit Reasons: BILAT DX C4-C5-C6 MBB 09/16/23/confirmed Allergies No Known Allergies Allergy (Verified 09/18/23 09:31) HPI HPI Comments History of Present Illness Details Dimitri is back in my office after diagnostic C4-C5 C6 medial branch block bilateral. He reported no immediate pain improvement after the procedure. He reported pain 8/10 before the procedure, pain decreased to 3/10 for 1st hour after the procedure but after that the pain started to quickly go back at 2 hours his pain was 5/10 and at 03:00 hours and 4 hours his pain was 8/10. Therefore I cannot consider C4-C5 and C6 bilateral facet joints as patient's pain generators. He expressed the desire to return to physical therapy and home exercise program. His daughters physical therapist and can show him some stretches on his neck. I recommended him to schedule an appointment with us in 2 months after he continually was doing the home exercise program. Prior: complains on pain in the center of his lower neck. He reports that this pain started about 1 year ago and greatly got exacerbated about 6 months ago. He thinks that he has pain is coming from neck arthritis. He went for consultation with Dr. Khalil and he was sent for pain management evaluation here. He reports his pain 8/10. In terms of tissue damage he reports his pain is dull, circ, hurting, aching, heavy sensation. He had extensive course of physical therapy he started 1 year ago and he continues home exercise program however he did not feel any improvement from neither physical therapy nor home exercise programs. He received MRI in [facility] results of which dictated as below. [facility] Medical History COVID-19 vaccine series completed Gout Depression GANESH (obstructive sleep apnea) Essential hypertension Erectile dysfunction Surgical History H/O colonoscopy History of tonsillectomy Family History Father Unknown family medical history Mother Unknown family medical history Social History Housing: House Alcohol intake: current Patient Tobacco Use Status: Never used Tobacco e-Cigarette/Vaping Use: Never Used Second Hand Smoke Exposure: No service: No Current occupational status: retired Cognitive needs: No Hearing needs: No Vision needs: No Review of Systems Const All systems reviewed & are unremarkable except as noted in HPI and below Denies chills and Denies fever(s) Eyes Denies blurry vision ENT Reports Normal hearing present, Denies vertigo, Denies dizziness and Denies sore throat Card Denies chest pain at rest, Denies chest pain with activity, Denies diaphoresis, Denies dyspnea and Denies dyspnea on exertion Resp Denies cough, Denies dyspnea, Denies dyspnea on exertion and Denies wheezing GI Denies abdominal pain, Denies melena, Denies hematochezia, Denies constipation, Denies diarrhea and Denies loose stools Denies hematuria Musc Denies numbness and Denies tingling Skin/Breast Denies lesions Neuro Reports Normal hearing present, Denies Abnormal speech present, Denies vertigo, Denies dizziness, Denies numbness, Denies Sensory deficit (Neuro) and Denies tingling Psych Denies anxiety, Denies depression, Denies homicidal ideation, Denies suicidal ideation and Denies other (substance abuse) Aller/Immun Denies wheezing Physical Exam Vital Signs: Last Vital Signs Pulse 45 L 09/18/23 09:31 Resp 17 09/18/23 09:31 BP 132/72 09/18/23 09:31 Pulse Ox 97 09/18/23 09:31 Oxygen Delivery Method Room Air 09/18/23 09:31 BMI result Body Mass Index 26.2 Const General: no acute distress Nutritional Appearance: average body habitus and well nourished Orientation/consciousness: patient oriented x3 Eyes General: appearance normal, both eyes and all related structures Pupils: Equal, round and reactive pupils present EOM: EOMs intact bilaterally Neck Other: Flexing neck forward and flexing neck backwards aggravates his pain however flexing backwards aggravate his pain more than flexing forward. Also he reports that lateral rotation of the head aggravates his pain the most. He reports tenderness on palpation in the projection of the center of paraspinal spinal column. He denies Valsalva maneuver, coughing, sneezing, aggravates his pain. He denies pelvic organ dysfunction. He denies incontinence with urine and/or stool he denies urinary retention. He denies pain radiating into bilateral upper extremities. Reflexes are symmetric bilaterally. Axial compression on the neck does not aggravate his pain. Spurling maneuver does not aggravate his pain. Lhermitte test is negative. Neck: No full ROM Chest Chest palpation & inspection: normal inspection of the chest Resp Effort & Inspection: normal respiratory effort, able to speak in complete sentences, normal respiratory pattern, no audible wheezes and no cough Cardio Jugular venous distension: no JVD GI Inspection: Yes normal to inspection Neuro General: patient oriented x3 and gait normal Cranial nerves: Yes Equal, round and reactive pupils present and Yes Normal hearing present Speech: No Abnormal speech present Gait exam (Neuro): Normal gait present Motor exam (neuro): 5/5 motor strength present throughout Sensory Exam: No Sensory deficit (Neuro) Extrem General: No pedal edema Psych Speech and movement: Normal speech and movement present Affect: normal affect Attitude: cooperative Thought process: Normal thought process present Thought content: Normal thought content present Insight: Good insight present (Psych) Judgement: Good judgement present (Psych) Results Reviewed Results Reviewed: MR CERVICAL SPINE WITHOUT CONTRAST CLINICAL INFORMATION: Cervical disc disorder. Stiff neck with decreased range of motion. COMPARISON: X-ray dated 12/30/2022. TECHNIQUE: Multiplanar, multisequential imaging of the cervical spine was performed without contrast. FINDINGS: VERTEBRAL BODIES AND PARASPINAL SOFT TISSUES: There are chronic fatty marrow degenerative endplate changes with severe disc space narrowing at the C5-C6 level and at the C6-C7 level where there is mild endplate edema as well. No compression fractures are seen. No significant subluxations evident. There is mild to moderate marrow edema in the C1 lateral masses anteriorly and in the odontoid process laterally, likely reactive to atlantoaxial degenerative joint disease. The paraspinal soft tissues are normal. The vertebral artery flow-voids are maintained. The imaged lung apices are grossly clear. CERVICOMEDULLARY JUNCTION AND VISUALIZED POSTERIOR FOSSA: The craniovertebral junction otherwise appears normal. The imaged portions of the brain are unremarkable. No cord signal abnormality or syrinx is seen. SPINAL LEVELS: C2-C3: No disc pathology. Severe left-sided facet arthropathy mild to moderate left foraminal encroachment. No central canal stenosis. C3-C4: Broad-based posterior disc bulge and thickening of ligamentum flavum with mild central canal stenosis and hypertrophic facet arthropathy. [id number] bilateral foraminal narrowing. C4-C5: Disc-osteophyte complex and mild posterior ligamentous thickening. No significant central canal stenosis. Severe right foraminal narrowing. Mild left foraminal narrowing. C5-C6: Disc-osteophyte complex with severe bilateral foraminal encroachment. No central canal stenosis. C6-C7: Broad-based posterior disc bulge and endplate spurring without central canal stenosis. Severe bilateral foraminal encroachment noted. C7-T1: No disc pathology. Mild facet arthropathy. No central canal stenosis or foraminal narrowing. IMPRESSION: 1. Moderate mid to lower cervical spondylosis with severe right foraminal narrowing at the C4-C5 level and significant bilateral foraminal encroachment at the C5-C6 and C6-C7 levels. 2. Mild central canal stenosis at the C3-C4 level with [id number] foraminal narrowing due to facet spurring and uncovertebral joint hypertrophy. Mild posterior disc bulge. 3. Severe left-sided facet arthropathy at the C2-C3 level with mild to moderate left foraminal encroachment. 4. Mild to moderate marrow edema in the C1 lateral masses and in the odontoid process, likely reactive to atlantoaxial degenerative joint disease. Assessment & Plan Assessment & Plan (1) Spondylosis of cervical region without myelopathy or radiculopathy: Code(s): M47.812 - Spondylosis without myelopathy or radiculopathy, cervical region Plan: (2) Chronic pain syndrome: Code(s): G89.4 - Chronic pain syndrome Plan Diagnostic C4-C5 C6 medial branch block bilateral unfortunately resulted in no pain improvement which I can consider positive. He does not report pain radiating down to the extremities. Despite the C4-C5 foraminal narrowing bilaterally the patient does not present with C5 radiculopathy. C5 radiculopathy would exhibit pain to suprascapular area lateral upper arm and lateral elbow. Therefore there is no indications for epidural steroid injections for this patient. He expressed the desire to consider returning to home exercise program. Her daughter is physical therapist and she can help him with his exercises. I personally do not believe this patient has any radiculopathy in the cervical spine and I do not think surgical interventions would be appropriate for this patient. He has history of thrombocytopenia however currently his platelets are normal. Nevertheless if any major intervention will be planned in the future repeat of the platelets level would be warranted. Patient Instructions: I here by testify that I spent 35 minutes in conversation with the patient today as well as re-evaluating her images and radiology reports and planning his care, and also organizing this note. Coding Level of Care Code Est Pt Level 4 (55437) Diagnoses Spondylosis of cervical region without myelopathy or radiculopathy M47.812 Chronic pain syndrome G89.4
[2023-09-18 09:31] VITALS: BP 132/72; PULSE 45; RESP 17; O2SAT 97; BMI 26.2
== END 2023-09-18 09:10 | disposition home or self-care (01) ==
PROVIDERS: PCP Nurse Practitioner Family; Visit Provider Anesthesiology
DX: G89.4 Chronic pain syndrome (principal); M47.812 Spondylosis without myelopathy or radiculopathy, cervical region
CPT/HCPCS: 99214

== ENCOUNTER → 2023-09-18 08:56 | Outpatient (BNVA) | payer MEDICARE, SELFPAY | PROVIDERS: PCP Nurse Practitioner Family; Visit Provider Anesthesiology | DX: M47.812 Spondylosis without myelopathy or radiculopathy, cervical region (principal); G89.4 Chronic pain syndrome | CPT/HCPCS: 99212 ==

== ENCOUNTER 2023-12-05 10:17 | Outpatient (AMB) | payer MEDICARE, SELFPAY ==
[2023-12-05 11:23] VITALS: BP 118/80; PULSE 62; TEMP 36.3; O2SAT 97; BMI 25.2
--- NOTE | 2023-12-05 11:23 | AM.OFFWIN_ITS ---
Intake Vital Signs 12/05/23 11:23 Height 5 ft 6 in Weight 156 lb BMI 25.2 BP 118/80 Blood Pressure Location Lt brachial Position Sitting Pulse 62 Pulse Source Pulse Oximeter Temp 97.3 F Temp Source Temporal Artery Scan Pulse Oximetry (%) 97 Oxygen Delivery Method Room Air Intake Visit Reasons: EP Chest congestion/pain Intake Note: pt i here today for chest congestion started 3 weeks ago Patient Tobacco Use Status: Never used Tobacco Allergies No Known Allergies Allergy (Verified 12/05/23 11:24) Do you need a note to return to daycare/school/sports/work: No HPI HPI Comments History of Present Illness Details 68 y/o male patient who presents to walk in clinic with c/o cough and chest congestion x 3 weeks. Pt had Influenza 3 weeks and he feels like the cough never went away. Denies fevers, chills, nausea or vomiting. [facility] Medical History (Updated 07/30/23 @ 12:25 by Jose Nicholas MD) COVID-19 vaccine series completed Gout Depression GANESH (obstructive sleep apnea) Essential hypertension Erectile dysfunction Surgical History (Updated 11/10/23 @ 08:35 by Noni Mckenna RN) History of carpal tunnel surgery of left wrist H/O colonoscopy History of tonsillectomy Family History Father Unknown family medical history Mother Unknown family medical history Social History Housing: House Alcohol intake: current Patient Tobacco Use Status: Never used Tobacco e-Cigarette/Vaping Use: Never Used Second Hand Smoke Exposure: No service: No Current occupational status: retired Cognitive needs: No Hearing needs: No Vision needs: No Review of Systems Const All systems reviewed & are unremarkable except as noted in HPI and below Physical Exam Vital Signs: Last Vital Signs Temp 97.3 F 12/05/23 11:23 Pulse 62 12/05/23 11:23 BP 118/80 12/05/23 11:23 Pulse Ox 97 12/05/23 11:23 Oxygen Delivery Method Room Air 12/05/23 11:23 BMI result Body Mass Index 25.2 Const General: comfortable and no acute distress Orientation/consciousness: patient oriented x3 HEENT Head: Yes normocephalic Ears: external ears normal and TM's normal bilaterally General nose exam: Normal nasal mucous membranes and turbinates present Face and sinus: Yes sinuses nontender Mouth: moist mucous membranes Throat: Yes posterior oropharynx normal Resp Other: Wheezing clearing with cough and deep breath Effort & Inspection: normal respiratory effort and able to speak in complete sentences Auscultation: no crackles, no rales, no rhonchi and wheezes (cleared with cough) inspiratory wheezes Cardio Rate: regular rate Rhythm: regular rhythm Neuro General: patient oriented x3 Assessment & Plan Assessment & Plan (1) Cough in adult: Code(s): R05.9 - Cough, unspecified Plan: - OTC cough remedies - Warm fluids with honey - Take medicine as directed. Medications: New dextromethorphan-guaifenesin 60-1,200 mg ER (Mucinex DM) 1 tab PO DAILY PRN 30 tabs 0RF cough R05.9 - Cough, unspecified azithromycin 500 mg PO DAILY 3 days 3 tabs 0RF R05.9 - Cough, unspecified Coding Level of Care Code Est Pt Level 3 (55557) Diagnoses Cough in adult R05.9 Time Spent (min) 15
== END 2023-12-05 12:20 | disposition home or self-care (01) ==
PROVIDERS: PCP Nurse Practitioner Family; Visit Provider Nurse Practitioner Family
DX: R05.9 Cough, unspecified (principal)
CPT/HCPCS: 99213

== ENCOUNTER 2023-12-29 08:26 | Outpatient (AMB) | payer MEDICARE, SELFPAY ==
[2023-12-29 08:39] VITALS: BP 122/80; PULSE 50; O2SAT 98; BMI 23.7
--- NOTE | 2023-12-29 08:39 | MHC.PC.OV ---
Vital Signs 12/29/23 08:39 Height 5 ft 6 in Weight 147 lb BMI 23.7 BP 122/80 Blood Pressure Location Rt brachial Position Sitting Pulse 50 Pulse Source Pulse Oximeter Pulse Oximetry (%) 98 Oxygen Delivery Method Room Air Intake Visit Reasons: 6 month follow up Intake Note: Patient here for HTN f/u. Allergies No Known Allergies Allergy (Verified 12/29/23 08:40) Tobacco use date assessed: 12/29/23 Fall risk assessment: No Falls in past year Last assessed Fall Risk: 12/29/23 Dental Screening Dental Screen Date: 12/29/23 Did you have a dental visit in the last 12 months?: Yes Did you have a dental problem in the last 6 months where you did not have access to dental care?: No Was dental information given to patient?: Patient has dentist HPI 6 month follow up HPI Details HTN: Blood pressure is stable, managed with amlodipine 10mg and lisinopril 5mg. Will order labs. Denies chest pain, shortness of breath, headache, dizziness, and blurred vision. Note: Pt is seeing [facility] due to cervical neck pain. [facility] Medical History (Updated 07/30/23 @ 12:25 by Jose Nicholas MD) COVID-19 vaccine series completed Gout Depression GANESH (obstructive sleep apnea) Essential hypertension Erectile dysfunction Surgical History (Updated 11/10/23 @ 08:35 by Noni Mckenna RN) History of carpal tunnel surgery of left wrist H/O colonoscopy History of tonsillectomy Family History Father Unknown family medical history Mother Unknown family medical history Social History Housing: House Alcohol intake: current Patient Tobacco Use Status: Never used Tobacco e-Cigarette/Vaping Use: Never Used Second Hand Smoke Exposure: No service: No Current occupational status: retired Cognitive needs: No Hearing needs: No Vision needs: No Questionnaire Thrive Questionnaire Date Thrive assessed: 01/14/22 AUDIT C Alcohol Use Questionnaire (AUDIT-C) 1. How often do you have a drink containing alcohol?: 2-3 times a week 2. How many drinks containing alcohol do you have on a typical day when you are drinking?: 3 or 4 3. How often do you have six or more drinks on one occasion?: Monthly Total Score: 6 Score Reviewed/Action Taken: No INOCENTE-7 AMB Questionnaire INOCENTE-7 Date INOCENTE - 7 assessed: 01/14/22 Feeling nervous, anxious, or on edge: 1 = Several days Not being able to stop or control worryin = Not at all Worrying too much about different things: 0 = Not at all Trouble relaxin = Not at all Being so restless that it is hard to sit still: 1 = Several days Becoming easily annoyed or irritable: 1 = Several days Feeling afraid as if something awful might happen: 0 = Not at all Total INOCENTE-7 score (0-4 normal; 5-9 mild; 10-14 moderate; 15-21 severe): 3 Source: Developed by Drs. Dwain Duncan, Valentine Samson, Jas Lees and colleagues, with an educational padmini from [email or web address]. Review of Systems Const Reports as per HPI Physical exam (Primary Care) Vital Signs: Last Vital Signs Pulse 50 12/29/23 08:39 BP 122/80 12/29/23 08:39 Pulse Ox 98 12/29/23 08:39 Oxygen Delivery Method Room Air 12/29/23 08:39 BMI result Body Mass Index 23.7 Tobacco/Smoking Status: Tobacco use Status Tobacco use date assessed 12/29/23 12/29/23 08:43 Patient Tobacco Use Status Never used Tobacco 12/29/23 08:43 e-Cigarette/Vaping Use Never Used 12/29/23 08:43 Thrive Assessment: Date of Thrive Assessment Date Thrive assessed 01/14/22 12/29/23 08:43 Const General: cooperative Orientation/consciousness: patient oriented x3 Resp Effort & Inspection: normal respiratory effort Auscultation: clear to auscultation bilaterally Cardio Rate: bradycardic Rhythm: regular rhythm Heart sounds: S1 normal heart sound present and S2 normal heart sound present Neuro General: patient oriented x3 Extrem Right lower extremity: no edema Left lower extremity: no edema Psych Appearance: grossly normal Mental Status: mental status grossly normal Speech and movement: Normal speech and movement present Affect: normal affect Attitude: cooperative Thought process: Normal thought process present Thought content: Normal thought content present Insight: Good insight present (Psych) Judgement: Good judgement present (Psych) Assessment and Plan Assessment & Plan (1) HTN (hypertension): Code(s): I10 - Essential (primary) hypertension Plan: Stable, labs ordered Plan The patient agreed to the use of a medical services coordinator for this encounter. Scribed for MUSA Earl by Tere Espinoza medical services coordinator, on 12/29/2023 at 09:05 EST. Orders: Orders TSH reflex Free T4 Today I10 - Essential (primary) hypertension UA CC w/rflx Micro + Cult Today I10 - Essential (primary) hypertension Lipid Panel Today I10 - Essential (primary) hypertension Complete Blood Count Auto Diff Today I10 - Essential (primary) hypertension Comprehensive [place]. Panel Fast Today I10 - Essential (primary) hypertension Coding Level of Care Code Est Pt Level 3 (15510) Diagnoses HTN (hypertension) I10
== END 2023-12-29 09:10 | disposition home or self-care (01) ==
PROVIDERS: PCP Nurse Practitioner Family; Visit Provider Nurse Practitioner Family
DX: I10 Essential (primary) hypertension (principal)
CPT/HCPCS: 99213

== ENCOUNTER 2023-12-30 07:38 | Outpatient (REF) | payer MEDICARE, SELFPAY ==
[2023-12-30 07:55] LABS: MANUAL DIFF FLAG NO
[2023-12-30 08:36] LABS: Basophils Percent Auto 0.5 % (0-2); Eosinophils Absolute Auto 0.1 X10*3/uL (0.0-0.4); Eosinophils Percent Auto 1.7 % (0-4); Hematocrit 45.4 % (42.0-52.0); Hemoglobin 15.7 g/dl (14.0-18.0); Imm Gran Abs Auto 0.04 X10*3/uL (0.00-0.03); Imm Gran Pct Auto 0.7 % (0.0-0.4); Lymphocytes Absolute Auto 1.7 X10*3/uL (1.2-4.9); Lymphocytes Percent Auto 28.6 % (20-40); Mean Corpuscular HGB Conc 34.6 g/dl (31.0-36.0); Mean Corpuscular Hemoglobin 30.3 pg (27.0-33.0); Mean Corpuscular Volume 87.5 fL (80.0-98.0); Mean Platelet Volume 9.4 fL (9.4-12.4); Monocytes Absolute Auto 0.6 X10*3/uL (0.1-1.2); Monocytes Percent Auto 10.6 % (2-11); Neutrophils Absolute Auto 3.3 x10*3/uL (2.0-8.3); Neutrophils Percent Auto 57.9 % (45-73); Platelet Count 156 X10*3/uL (160-400); Red Blood Count 5.19 X10*6/uL (4.60-5.80); Red Cell Distribution Width 13.3 % (11.0-16.0); White Blood Count 5.8 X10*3/uL (4.8-10.8)
[2023-12-30 09:02] LABS: Appearance Urine Clear; Color Urine Yellow; Glucose Urine UA Negative (Negative); Leukocyte Esterase Urine Negative (Negative); Nitrite Urine Negative (Negative); PH 5.5 (5.0-9.0); Urine Blood Negative (Negative); Urine Ketones Negative (Negative); Urine Protein Negative (Neg-Trace)
[2023-12-30 09:21] LABS: Alanine Aminotransferase 40 U/L (0-40); Albumin Level 4.2 g/dL (3.5-5.0); Alkaline Phosphatase 66 U/L (39-117); Anion Gap 12 (12-20); Aspartate Amino Transferase 27 U/L (5-37); Bilirubin Total 0.8 mg/dL (0.0-1.0); Blood Urea Nitrogen 15 mg/dL (9-16); Calcium 9.3 mg/dL (8.4-10.2); Carbon Dioxide 29 mmol/L (22-29); Chloride 106 mmol/L (96-108); Cholesterol 164 mg/dL (<200); Estimated Glomerular Filt Rate > 60; Glucose Fasting 108 mg/dL (60-99); HDL Cholesterol 48 mg/dL (>40); LDL Cholesterol Calculated 95 mg/dL (<100); Sodium 142 mmol/L (135-145); Total Protein 7.1 g/dL (6.5-8.0); Triglycerides 105 mg/dL (<150)
[2023-12-30 09:39] LABS: TSH reflex Free T4 1.59 uIU/mL (0.32-4.0)
== END 2023-12-30 07:39 | disposition home or self-care (01) ==
LOC: HO.LAB 07:38
PROVIDERS: PCP Nurse Practitioner Family; Visit Provider Nurse Practitioner Family
DX: I10 Essential (primary) hypertension (principal); Z12.5 Encounter for screening for malignant neoplasm of prostate
CPT/HCPCS: 36415; 80053; 80061; 81003; 84443; 85025

== ENCOUNTER 2024-01-27 06:28 | Day surgery (SDC) | payer MEDICARE, SELFPAY ==
[2024-01-23 11:42] VITALS: BMI 23.7
--- NOTE | 2024-01-23 14:57 | HO.ANESPROP2 ---
Documented by User: Mary Chi NP 01/23/24 15:02 HPI - Anesthesia Eval Consult details Narrative: 68yo M for Colonoscopy Sinus babatunde, 2021 w/u, no indication for pacer per office visit note. See below for testing results. PMF Active Problems Active Problems: All Active Problems Chronic pain syndrome (Acute) Spondylosis of cervical region without myelopathy or radiculopathy (Acute) Thrombocytopenia (Acute) Alcohol intoxication (Acute) Cervical disc disease (Acute) Thrombocytopenia (Acute) Upper respiratory tract infection (Acute) HTN (hypertension) (Acute) Rib pain on right side (Acute) GANESH (obstructive sleep apnea) (Acute) Accelerated AV junctional rhythm (Acute) Abnormal stress ECG (Acute) Cellulitis of leg, left (Acute) Tick bite (Acute) Dyslipidemia (Acute) Depression, major, in partial remission (Acute) Anxiety (Acute) Cervical neck pain with evidence of disc disease (Acute) Screening for colon cancer (Acute) Elevated liver enzymes (Acute) Sinus bradycardia (Acute) Bradycardia (Acute) Screening PSA (prostate specific antigen) (Acute) Physical exam (Acute) GANESH (obstructive sleep apnea) (Acute) Essential hypertension (Acute) Erectile dysfunction (Acute) Past Medical History Medical History (Updated 01/23/24 @ 11:45 by Iris Petty RN) Bradycardia Anxiety Thrombocytopenia Gout Depression GANESH (obstructive sleep apnea) Essential hypertension Erectile dysfunction Family History Family History Father Unknown family medical history Mother Unknown family medical history Surgical History Surgical History (Updated 11/10/23 @ 08:35 by Noni Mckenna RN) History of carpal tunnel surgery of left wrist H/O colonoscopy History of tonsillectomy Social History Social History Housing: House Alcohol intake: current Patient Tobacco Use Status: Never used Tobacco e-Cigarette/Vaping Use: Never Used Second Hand Smoke Exposure: No Advance Directives: No Advance Directives Information Provided: Yes Advance Directives on File: No service: No Current occupational status: retired Cognitive needs: No Hearing needs: No Vision needs: No Meds Allergies Allergy/AdvReac Type Severity Reaction Status Date / Time No Known Allergies Allergy Verified 12/29/23 08:40 Home Medications ?Medication ?Instructions ?Recorded ?Confirmed ?Last Taken ?Type folic acid 1 mg tablet 1 mg PO DAILY 02/04/23 01/23/24 Unknown History multivitamin (Multiple Vitamins 1 tab PO DAILY 02/04/23 01/23/24 Unknown History tablet) thiamine HCl (vitamin B1) 100 mg 100 mg PO DAILY 02/04/23 01/23/24 Unknown History tablet Exam Height,Weight and Vital Signs: Height 5 ft 6 in Weight 66.678 kg Pertinent Lab Results Pertinent Lab Results: Laboratory Tests 12/30/23 07:53 WBC 5.8 Hgb 15.7 Hct 45.4 Plt Count 156 L Sodium 142 Potassium 5.0 Chloride 106 Carbon Dioxide 29 BUN 15 Creatinine 0.97 Narrative Narrative: 2021 work up for marked Sinus Babatunde: Baseline EKG has sinus bradycardia but there is no evidence of any conduction system disease. In the Holter monitor, underlying rhythm was sinus with an average rate of 56/Min. Frequent sinus bradycardia but no significant pauses. Occasional PACs. Short runs of probable atrial tachycardia. In the exercise stress test, he was able to exercise for 8 minutes+ on Kory protocol. Reached 92% of max predicted heart rate and 10.1 Mets. No shortness of breath or angina. Normal chronotropic response. No clear conduction system disease of significance during exercise. Thought to have accelerated junctional rhythm but more than likely it is sinus tachycardia with probable prolonged WV. At the end of recovery, ventricular rate was 69/Min with normal AV conduction. He then repeated this with nuclear perfusion as well. During this, he was again able to exercise for 10.1 Mets on a Kory protocol without any clear symptoms. There was suggestion of lengthening of WV/accelerated junctional rhythm during exercise. More than likely it is the former. Reached 85% max predicted heart rate. No EKG evidence of ischemia. Perfusion imaging was again unremarkable. Echocardiogram without any structural abnormalities and LVEF 58%. No indication for pacer by [facility] cardiology and also second opinion. Assessment and Plan Assessment Anesthesia Assessment: Chart Reviewed Documented by User: Henry Fuentes MD 01/27/24 07:25 [facility] Past Medical History Medical History (Updated 01/23/24 @ 11:45 by Iris Petty RN) Bradycardia Anxiety Thrombocytopenia Gout Depression GANESH (obstructive sleep apnea) Essential hypertension Erectile dysfunction Family History Family History Father Unknown family medical history Mother Unknown family medical history Family history of problems with anesthesia: No Surgical History Surgical History (Updated 11/10/23 @ 08:35 by Noni Mckenna, MAKAYLA) History of carpal tunnel surgery of left wrist H/O colonoscopy History of tonsillectomy History of Problems with Anesthesia: No Social History Social History Housing: House Alcohol intake: current Patient Tobacco Use Status: Never used Tobacco e-Cigarette/Vaping Use: Never Used Second Hand Smoke Exposure: No Advance Directives: No Advance Directives Information Provided: Yes Advance Directives on File: No service: No Current occupational status: retired Cognitive needs: No Hearing needs: No Vision needs: No Meds Allergies Allergy/AdvReac Type Severity Reaction Status Date / Time No Known Allergies Allergy Verified 12/29/23 08:40 Home Medications ?Medication ?Instructions ?Recorded ?Confirmed ?Last Taken ?Type folic acid 1 mg tablet 1 mg PO DAILY 02/04/23 01/23/24 Unknown History multivitamin (Multiple Vitamins 1 tab PO DAILY 02/04/23 01/23/24 Unknown History tablet) thiamine HCl (vitamin B1) 100 mg 100 mg PO DAILY 02/04/23 01/23/24 Unknown History tablet Exam Airway Mallampati Class: III TM Dist: >3cm Neck ROM: Full Assessment and Plan Assessment Anesthesia Assessment: Anesthesia Plan Discussed Final Anesthetic Review Family History of Problems with Anesthesia: No History of Problems with Anesthesia: No NPO: Yes ASA Class: III Final Preanesthetic Review: No Changes in Pt Med Stat, Meds/Allgs Chart Reviewed, Consent Obtained/Reviewed and Anes Risks/Benef Reviewed Patient Risk: Intermediate Procedure Risk: Low Anesthetic Plan Anesthetic Plan: TIVA Disposition: Standard PACU
[2024-01-27 06:38] VITALS: BP 139/64; PULSE 49; RESP 20; TEMP 36.1; O2SAT 97
[2024-01-27 06:47] VITALS: BMI 24.9
[2024-01-27] MEDS: Lactated Ringers 1,000 ML 100 ML IVCONT (06:57)
--- NOTE | 2024-01-27 07:27 | MHC.SHP ---
Pre-Procedural Eval Section A - 24 Hr Update-Section A only Date of Service: 01/27/24 Section B - Complete if H&P > 30 days Chief Complaint: hx colonic polyps,screening Details of Present Illness: see H&P no changes Relevant Family History (Specify if Yes): No Relevant Social History: None Present Medications: see Short Stay Collaborative assessment Medical History: No relevant PMH Allergies: Allergies Allergy/AdvReac Type Severity Reaction Status Date / Time No Known Allergies Allergy Verified 12/29/23 08:40 Review of Systems Sugical H&P ROS: Negative: Constitution, Cardiovascular, Respiratory, Neurological, Psychiatric, Hem-Onc, Allergic/Immunologic, Gastrointestinal, Genitourinary, Musculoskeletal, Integumentary, Endocrine and Eyes/Ears/Nose/Throat Exam Surgical H&P Exam: Normal: HEENT, Normal: Heart, Normal: Lungs, Normal: Extremities, Normal: Abdomen, Normal: Skin and Normal: Neurological Plan Diagnosis/Plan: Unchanged I have reviewed the history and physical and performed a pertinent physical examination on my patient. No changes have occurred unless specified. Time Spent With Patient Time: Total time managing care of this patient today ____ minutes.
[2024-01-27 08:03] VITALS: BP 103/50; PULSE 43; RESP 16; TEMP 37.1; O2SAT 99
--- NOTE | 2024-01-27 08:12 | PM.OP ---
Brief Operative Note Date of Service: 01/27/24 Pre-op diagnosis: screening Procedure: colonoscopy Surgeon: Bryn Thomas MD Anesthesia: MAC Curtain Cleaner: Alin Galeano Estimated blood loss (mL): 2 Pathology: other Condition: stable Disposition: PACU
--- NOTE | 2024-01-27 08:14 | OP_ITS ---
DATE OF SERVICE: 01/27/2024 SURGEON: Bryn Thomas MD INDICATIONS: Colon cancer screening and prior history of adenomatous colon polyps. PREOPERATIVE DIAGNOSIS: POSTOPERATIVE DIAGNOSIS: PROCEDURE PERFORMED: Colonoscopy to the cecum with biopsy. ESTIMATED BLOOD LOSS: COMPLICATIONS: ANESTHESIA: Monitored anesthesia care. ASSISTANTS: SPECIMENS: DESCRIPTION OF PROCEDURE: A history and physical performed, the risks and benefits of the procedure were explained to the patient. Informed consent was obtained. The patient was placed in the left lateral decubitus position. A digital rectal exam was performed and was found to be normal. The Olympus pediatric video colonoscope was introduced into the rectum and advanced to the cecum. The cecum was identified by transillumination, palpation, and identification of ileocecal valve. Examination was performed. The scope was removed. He tolerated the procedure well and was taken to recovery area in stable condition. FINDINGS: The terminal ileum was not examined. The visualized colonic mucosa was normal. The quality of the prep was good. Retroflexed examination was remarkable for small internal hemorrhoids. There was a small less than 5 mm sessile polyp was removed with biopsy forceps. This was located in the vicinity of the cecum. IMPRESSION: Colon polyp. RECOMMENDATIONS: Follow up with biopsy results. MD MENA Falcon/DALIAL / [id number]
[2024-01-27 08:18] VITALS: BP 96/58; PULSE 45; RESP 16; O2SAT 99
[2024-01-27 08:33] VITALS: BP 113/63; PULSE 42; RESP 16; TEMP 37.1; O2SAT 100
== END 2024-01-27 08:51 | disposition home or self-care (01) ==
PROVIDERS: PCP Nurse Practitioner Family; Visit Provider Internal Medicine Gastroenterology
PROC: 0DJD8ZZ Inspection of Lower Intestinal Tract, Via Natural or Artificial Opening Endoscopic (ICD-10-PCS; CPT 45378; principal; 2024-01-27 07:30)
DX: Z12.11 Encounter for screening for malignant neoplasm of colon (principal); D12.0 Benign neoplasm of cecum; Z86.010 Personal history of colon polyps; I10 Essential (primary) hypertension
CPT/HCPCS: 45380; 88305; J2704

== ENCOUNTER 2024-03-23 09:26 | Outpatient (AMB) | payer MEDICARE, SELFPAY ==
[2024-03-23 09:31] VITALS: BP 112/70; PULSE 44; O2SAT 98; BMI 24.9
--- NOTE | 2024-03-23 09:31 | A.OFFVIS_ITS ---
Vital Signs 03/23/24 09:31 Height 5 ft 6 in Weight 154 lb BMI 24.9 BP 112/70 Blood Pressure Location Lt brachial Position Sitting Pulse 44 L Pulse Source Pulse Oximeter Pulse Oximetry (%) 98 Oxygen Delivery Method Room Air Intake Visit Reasons: Obstructive sleep apnea Intake Note: pt is here for talk about ketan and need for repeat sleep study due to weight loss, pt's snoring is hardly at all. Hostess Party Sales Representative Required: No Allergies No Known Allergies Allergy (Verified 03/23/24 09:38) Medication List - Last Reconciled 03/23/24 by Brody Poe MD allopurinol 100 mg PO DAILY amlodipine 10 mg PO DAILY atorvastatin 10 mg PO BEDTIME fluoxetine 40 mg PO DAILY 90 days folic acid 1 mg PO DAILY lisinopril 5 mg PO DAILY multivitamin (Multiple Vitamins tablet) 1 tab PO DAILY thiamine HCl (vitamin B1) 100 mg PO DAILY Do you need a note to return to daycare/school/sports/work: No HPI HPI Obstructive sleep apnea: Details: THIS 68 YEARS OLD GENTLEMAN IS A KNOWN CASE OF OBSTRUCTIVE SLEEP APNEA, 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 HE WAS TREATED WITH CPAP, IMPROVED, BUT DID NOT LIKE TO USE THE CPAP. SINCE LAST YEAR, HE HAS NOT USE THE CPAP. HE WAS INTERESTED IN HAVING INSPIRE PROCEDURE FOR THE TREATMENT. HE IS SCHEDULED TO UNDERGO THAT PROCEDURE NEXT MONTH, BUT DR. DAVIS WHO WILL BE PERFORMING THE PROCEDURE, WANTS TO RECONFIRM IF HE STILL HAS SIGNIFICANT SLEEP APNEA. THE PATIENT HAS LOST ABOUT 10-12 LB OF WEIGHT DURING THE PAST 1 YEAR. HIS STATES THAT HE DOES NOT S SNORE MUCH NOW. HE WAKES UP ONLY ONCE OR TWICE PER NIGHT BECAUSE OF NECK PAIN OR GOING TO THE BATHROOM , BUT NOT BECAUSE OF ANY PROBLEM WITH HIS BREATHING. HE DENIES DAYTIME SLEEPINESS. [facility] Medical History (Updated 03/23/24 @ 09:56 by Brody Poe MD) Retrognathia Bradycardia Anxiety Thrombocytopenia Gout Depression KETAN (obstructive sleep apnea) Essential hypertension Erectile dysfunction Surgical History History of carpal tunnel surgery of left wrist H/O colonoscopy History of tonsillectomy Family History Father Unknown family medical history Mother Unknown family medical history Social History Housing: House Alcohol intake: current Patient Tobacco Use Status: Never used Tobacco e-Cigarette/Vaping Use: Never Used Second Hand Smoke Exposure: No service: No Current occupational status: retired Cognitive needs: No Hearing needs: No Vision needs: No Review of Systems Const All systems reviewed & are unremarkable except as noted in HPI and below Reports snoring Eyes Reports no additional complaints ENT Reports no additional complaints Card Reports lightheadedness and Reports slow heart rate (PERIODS OF BRADYCARDIA) Resp Reports no additional complaints and Reports snoring GI Reports no additional complaints Reports no additional complaints Musc Reports no additional complaints Skin/Breast Reports system reviewed and no additional complaints, except as documented Neuro Reports no additional complaints Psych Reports no additional complaints Physical Exam HEALTHY LOOKING OF NORMAL WEIGHT. Const General: healthy appearing, comfortable, no acute distress, alert and awake Orientation/consciousness: patient oriented x3 HEENT Other: MAIN ABNORMALITY IS PRESENCE OF PHASE SIGNIFICANT DEGREE OF RETROGANTHIA OF THE LOWER JAW. Head: Yes normal to inspection General nose exam: No nasal polyps present and No nasal discharge present Face and sinus: Yes sinuses nontender Mouth: oropharynx normal Teeth and gingiva: other (RETROGANTHIA OF THE LOWER JAW) Throat: Yes posterior oropharynx normal Eyes General: appearance normal, both eyes and all related structures Neck Neck: Yes normal visual inspection, Yes no lymphadenopathy, Yes trachea midline and Yes no JVD Thyroid: Thyroid normal Chest Chest palpation & inspection: normal inspection of the chest, normal palpation of entire chest wall and no tenderness Resp Effort & Inspection: normal respiratory effort Auscultation: clear to auscultation bilaterally, no crackles and no wheezes Cardio Palpation: normal PMI Rate: regular rate Rhythm: regular rhythm Heart sounds: no gallops and no murmurs Peripheral pulses: Peripheral pulses 2+ throughout GI Palpation (GI): Soft to palpation, nontender, No hepatosplenomegaly present and no masses Auscultation: normal bowel sounds Back/Spine/Pelvis Thoracic/Lumbar Spine: thoracic and lumbar spine normal to inspection Skin General skin exam: no rashes or lesions noted Neuro General: patient oriented x3 and no focal motor deficits Cranial nerves: Yes CN's II-XII intact bilaterally Extrem General: Yes normal to inspection, Yes no clubbing, cyanosis or edema and Yes no calf tenderness Psych Appearance: grossly normal and well kempt Speech and movement: Normal speech and movement present Assessment & Plan Assessment & Plan (1) KETAN (obstructive sleep apnea): Comment: PATIENT HAS HISTORY OF OBSTRUCTIVE SLEEP APNEA, MAINLY RELATED TO MOSHE DENTAL DEFORMITY ( RETROGANTHIA OF THE LOWER JAW ) AND OBESITY. HE HAS LOST SIGNIFICANT WEIGHT FROM HIS BASELINE., AND CURRENTLY HAS MINIMAL SYMPTOMS REFLECTIVE OF KETAN. HE IS SCHEDULED FOR INSPIRE, PROCEDURE. BUT NEEDS SLEEP STUDY TO SEE IF HE STILL HAS ANY SIGNIFICANT DEGREE OF SLEEP APNEA. Code(s): G47.33 - Obstructive sleep apnea (adult) (pediatric) Category: Medical Plan: HOME-BASED SLEEP STUDY IS ORDERED. 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 IT REMAINS UNCHANGED. Code(s): M26.19 - Other specified anomalies of jaw-cranial base relationship Category: Medical Plan: HOME-BASED SLEEP STUDY FOR FOLLOW-UP, TO RECONFIRM OR RULE OUT THE DIAGNOSIS OF KETAN , BEFORE UNDERGOING INSPIRE PROCEDURE. Orders: Orders RT home sleep study Today G47.33 - Obstructive sleep apnea (adult) (pediatric), M26.19 - Other specified anomalies of jaw-cranial base relationship Coding Level of Care Code Est Pt Level 3 (63738) Diagnoses KETAN (obstructive sleep apnea) G47.33 Retrognathia M26.19
== END 2024-03-23 09:48 | disposition home or self-care (01) ==
PROVIDERS: PCP Nurse Practitioner Family; Visit Provider Internal Medicine
DX: G47.33 Obstructive sleep apnea (adult) (pediatric) (principal); M26.19 Other specified anomalies of jaw-cranial base relationship
CPT/HCPCS: 99213

== ENCOUNTER → 2024-03-23 09:26 | Outpatient (BNVA) | payer MEDICARE, SELFPAY | PROVIDERS: PCP Nurse Practitioner Family; Visit Provider Internal Medicine | DX: G47.33 Obstructive sleep apnea (adult) (pediatric) (principal); M26.19 Other specified anomalies of jaw-cranial base relationship; E66.9 Obesity, unspecified; Z68.24 Body mass index [BMI] 24.0-24.9, adult | CPT/HCPCS: 99212 ==

== ENCOUNTER → 2024-03-30 11:09 | Outpatient (REF) | payer MEDICARE, SELFPAY | LOC: HO.SL 11:09 | PROVIDERS: Visit Provider Internal Medicine | DX: G47.33 Obstructive sleep apnea (adult) (pediatric) (principal); M26.19 Other specified anomalies of jaw-cranial base relationship | CPT/HCPCS: 95806 ==

== ENCOUNTER → 2024-03-30 11:18 | Outpatient (BNV) | payer MEDICARE, SELFPAY | PROVIDERS: Visit Provider Internal Medicine | DX: G47.33 Obstructive sleep apnea (adult) (pediatric) (principal) | CPT/HCPCS: 95806 ==

== ENCOUNTER 2024-03-31 06:15 | Outpatient (REF) | payer MEDICARE, SELFPAY ==
[2024-03-31 11:14] LABS: Prostate Specific Antigen Scr 0.31 ng/mL (<0.05-4.0)
== END 2024-03-31 06:16 | disposition home or self-care (01) ==
LOC: HO.LAB 06:15
PROVIDERS: PCP Nurse Practitioner Family; Visit Provider Nurse Practitioner Family
DX: Z12.5 Encounter for screening for malignant neoplasm of prostate (principal)
CPT/HCPCS: 36415; 84153

== ENCOUNTER 2024-07-29 15:41 | Outpatient (AMB) | payer MEDICARE, SELFPAY ==
--- NOTE | 2024-07-29 15:45 | MHC.PC.OV ---
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 Required: No Accompanied by: Self / Same As Patient Allergies No Known Allergies Allergy (Verified 07/29/24 15:50) Medication List - Last Reconciled 07/29/24 by Penelope Vanessa NP allopurinol 100 mg PO DAILY amlodipine 10 mg PO DAILY atorvastatin 10 mg PO BEDTIME fluoxetine 40 mg PO DAILY 90 days folic acid 1 mg PO DAILY lisinopril 5 mg PO DAILY multivitamin (Multiple Vitamins tablet) 1 tab PO DAILY thiamine HCl (vitamin B1) 100 mg PO DAILY Tobacco use date assessed: 12/29/23 Fall risk assessment: No Falls in past year Last assessed Fall Risk: 07/29/24 Dental Screening Dental Screen Date: 12/29/23 HPI HPI Comments History of Present Illness Details 68 y/o male patient who presents to the clinic today for PE. He is accompanied by his today. He is a patient of Satya Polanco. PMHx significant for Alcohol dependency, Spondylosis of cervical neck, HTN, Thrombocytopenia, GANESH, Dyslipidemia. Pt has an appointment @ [facility] for sleep study 08/02/24. wants to make sure a Referral was sent to [facility], since this is out of Network and insurance needs a new referral extending days. Per chart review, there is an active Referral from January 2024 - January 2025. I showed this information, and she was going to confirm with [facility] if they have received it. Alcohol dependency: Patient declined intervention today. He reports drinking 6-9 beers 2-3 times a week. Will repeat Liver Function labs. He continues to have Asymptomatic Bradycardia. Had testings done previously by Cardiology with no etiology. [facility] Medical History Retrognathia Bradycardia Anxiety Thrombocytopenia Gout Depression GANESH (obstructive sleep apnea) Essential hypertension Erectile dysfunction Surgical History History of carpal tunnel surgery of left wrist H/O colonoscopy History of tonsillectomy Family History Father Unknown family medical history Mother Unknown family medical history Social History Housing: House Alcohol intake: current Patient Tobacco Use Status: Never used Tobacco e-Cigarette/Vaping Use: Never Used Second Hand Smoke Exposure: No service: No Current occupational status: retired Cognitive needs: No Hearing needs: No Vision needs: No Questionnaire PHQ-9 Over the last 2 weeks, how often have you been bothered by any of the following problems? 1. Little interest or pleasure in doing things: not at all 2. Feeling down, depressed, or hopeless: not at all 3. Trouble falling or staying asleep, or sleeping too much: not at all 4. Feeling tired or having little energy: not at all 5. Poor appetite or overeating: not at all 6. Feeling bad about yourself - or that you are a failure or have let yourself or your family down: not at all 7. Trouble concentrating on things, such as reading the newspaper or watching television: not at all 8. Moving or speaking so slowly that other people could have noticed. Or the opposite - being so fidgety or restless that you have been moving around a lot more than usual: not at all 9. Thoughts that you would be better off or of hurting yourself in some way: not at all Total score: 0 Depression Screening Interpretation: Negative Depression Screening Done: Yes 19698 - PHQ-9 Billing: Yes Source: Developed by Drs. Dwain Duncan, Valentine Samson, Jas Lees and colleagues, with an educational padmini from [employer]. Thrive Questionnaire Date Thrive assessed: 07/29/24 I am a: Patient What is your living situation today?: I have a steady place to live Within the past 12 months, did the food you bought not last and you didn't have the money to get more?: Never true Within the past 12 months, did you worry whether your food would run out before you got money to buy more?: Never true Do you have trouble paying for medicines?: No Do you have trouble getting transportation to medical appointments?: No Do you have trouble paying your heating and electricity bill?: No Do you have trouble taking care of your child, family member or friend?: No Do you have trouble with day-to-day activities such as bathing, preparing meals, shopping, managing finances, etc.?: No Are you currently unemployed and looking for a job?: No Are you interested in more education?: No Please select the resources that you would like help with: None Currently or been in a relationship where the following occur: No concerns reported THRIVE Score: 0 AUDIT C Alcohol Use Questionnaire (AUDIT-C) 1. How often do you have a drink containing alcohol?: 2-3 times a week 2. How many drinks containing alcohol do you have on a typical day when you are drinking?: 1 or 2 3. How often do you have six or more drinks on one occasion?: Monthly Total Score: 5 Score Reviewed/Action Taken: Yes INOCENTE-7 AMB Questionnaire INOCENTE-7 Date INOCENTE - 7 assessed: 07/29/24 Feeling nervous, anxious, or on edge: 0 = Not at all Not being able to stop or control worryin = Not at all Worrying too much about different things: 0 = Not at all Trouble relaxin = Not at all Being so restless that it is hard to sit still: 1 = Several days Becoming easily annoyed or irritable: 1 = Several days Feeling afraid as if something awful might happen: 0 = Not at all Total INOCENTE-7 score (0-4 normal; 5-9 mild; 10-14 moderate; 15-21 severe): 2 Source: Developed by Drs. Dwain Duncan, Valentine Samson, Jas Lees and colleagues, with an educational padmini from [employer]. INOCENTE-7 Assessment Billing INOCENTE-7 Assessment Tool: INOCENTE-7 Assessment 29572 Review of Systems Const All systems reviewed & are unremarkable except as noted in HPI and below Physical exam (Primary Care) Vital Signs: Last Vital Signs Pulse 46 L 07/29/24 15:48 BP 116/70 07/29/24 15:48 Pulse Ox 98 07/29/24 15:48 BMI result Body Mass Index 25.6 Tobacco/Smoking Status: Tobacco use Status Tobacco use date assessed 12/29/23 07/29/24 15:48 Patient Tobacco Use Status Never used Tobacco 07/29/24 15:48 e-Cigarette/Vaping Use Never Used 07/29/24 15:48 PHQ-9: PHQ-9 Score PHQ-9: Total score 0 07/29/24 16:07 Depression Screening Interpretation: Negative Thrive Assessment: Date of Thrive Assessment Date Thrive assessed 07/29/24 07/29/24 15:50 Currently or been in a relationship where the following occur: No concerns reported Const General: cooperative, comfortable and no acute distress Nutritional Appearance: overweight Orientation/consciousness: patient oriented x3 HENMT Head: Yes normocephalic Ears: external ears normal and TM's normal bilaterally General nose exam: Normal nasal mucous membranes and turbinates present Mouth: moist mucous membranes Throat: Yes posterior oropharynx normal and Yes uvula midline Eyes Pupils: Equal, round and reactive pupils present EOM: EOMs intact bilaterally Neck Other: Limited ROM of Neck Neck: Yes no lymphadenopathy Resp Effort & Inspection: normal respiratory effort and able to speak in complete sentences Auscultation: clear to auscultation bilaterally Cardio Heart sounds: S1 normal heart sound present and S2 normal heart sound present GI Inspection: Yes obesity Palpation (GI): Soft to palpation, not firm, nontender, no guarding, not rigid and No hepatosplenomegaly present Percussion: Yes normal to percussion Auscultation: normal bowel sounds Rectal Exam - Male: Yes deferred General: Yes no CVA tenderness Back/Spine/Pelvis Back: no CVA tenderness Skin General skin exam: no rashes or lesions noted Neuro General: patient oriented x3, gait normal and moves all extremities Cranial nerves: Yes Equal, round and reactive pupils present Motor exam (neuro): 5/5 motor strength present throughout Extrem General: Yes normal to inspection and Yes full ROM Psych Speech and movement: Normal speech and movement present Coding Level of Care Code Est Pt Prev Care >65y(69901) Diagnoses Primary hypertension I10 Hypertension type: primary hypertension Dyslipidemia E78.5 Encounter for routine adult health examination without abnormal findings Z00.00 Alcohol dependence with unspecified alcohol-induced disorder F10.29 Substance use status: unspecified alcohol-induced disorder Additional Codes INOCENTE-7 Assessment Billing - INOCENTE-7 Assessment Tool: INOCENTE-7 Assessment 48720 ([id number]) Time Spent (min) 30 Assessment & Plan Assessment & Plan (1) HTN (hypertension): Code(s): I10 - Essential (primary) hypertension Category: Medical Qualifiers: Hypertension type: primary hypertension Qualified Code(s): I10 - Essential (primary) hypertension Plan: continue on current regiment (2) Dyslipidemia: Code(s): E78.5 - Hyperlipidemia, unspecified Category: Medical Plan: Ordered Fasting Labs. (3) Encounter for routine adult health examination without abnormal findings: Code(s): Z00.00 - Encounter for general adult medical examination without abnormal findings Plan: Exam WNL (4) Alcohol dependence: Code(s): F10.20 - Alcohol dependence, uncomplicated Qualifiers: Substance use status: unspecified alcohol-induced disorder Qualified Code(s): F10.29 - Alcohol dependence with unspecified alcohol-induced disorder Plan: Declined intervention at this time. Orders: Orders Complete Blood Count Auto Diff Today E78.5 - Hyperlipidemia, unspecified, F10.29 - Alcohol dependence with unspecified alcohol-induced disorder, I10 - Essential (primary) hypertension Comprehensive Met. Panel Today E78.5 - Hyperlipidemia, unspecified, F10.29 - Alcohol dependence with unspecified alcohol-induced disorder, I10 - Essential (primary) hypertension Lipid Panel Today E78.5 - Hyperlipidemia, unspecified, F10.29 - Alcohol dependence with unspecified alcohol-induced disorder, I10 - Essential (primary) hypertension
[2024-07-29 15:48] VITALS: BP 116/70; PULSE 46; O2SAT 98; BMI 25.6
== END 2024-07-29 16:43 | disposition home or self-care (01) ==
LOC: HO.HMCC 15:41
PROVIDERS: PCP Nurse Practitioner Family; Visit Provider Nurse Practitioner Family
DX: I10 Essential (primary) hypertension (principal); E78.5 Hyperlipidemia, unspecified; Z00.00 Encounter for general adult medical examination without abnormal findings; F10.29 Alcohol dependence with unspecified alcohol-induced disorder

== ENCOUNTER → 2024-07-29 15:41 | Outpatient (BNVA) | payer MEDICARE, SELFPAY | PROVIDERS: PCP Nurse Practitioner Family; Visit Provider Nurse Practitioner Family | DX: Z00.01 Encounter for general adult medical examination with abnormal findings (principal); I10 Essential (primary) hypertension; E78.5 Hyperlipidemia, unspecified; F10.29 Alcohol dependence with unspecified alcohol-induced disorder | CPT/HCPCS: 96127; 99397 ==

== ENCOUNTER 2024-10-27 15:49 | Outpatient (AMB) | payer MEDICARE, SELFPAY ==
[2024-10-27 15:59] VITALS: BP 130/80; PULSE 53; O2SAT 98; BMI 26.5
--- NOTE | 2024-10-27 15:59 | A.OFFVIS_ITS ---
Vital Signs 10/27/24 15:59 Height 5 ft 6 in Weight 164 lb 3.91 oz BMI 26.5 BP 130/80 Blood Pressure Location Lt brachial Position Sitting Pulse 53 Pulse Source Pulse Oximeter Pulse Oximetry (%) 98 Oxygen Delivery Method Room Air Intake Visit Reasons: Obstructive sleep apnea Intake Note: pt is here for follow up of inspire, needs sleep study Supervisor Forming Department Required: No Allergies No Known Allergies Allergy (Verified 10/27/24 16:15) Medication List - Last Reconciled 10/27/24 by Brody Poe MD allopurinol 100 mg PO DAILY amlodipine 10 mg PO DAILY atorvastatin 10 mg PO BEDTIME fluoxetine 40 mg PO DAILY 90 days folic acid 1 mg PO DAILY lisinopril 5 mg PO DAILY multivitamin (Multiple Vitamins tablet) 1 tab PO DAILY thiamine HCl (vitamin B1) 100 mg PO DAILY Do you need a note to return to daycare/school/sports/work: No HPI HPI Obstructive sleep apnea: Details: THIS 69 YEARS OLD GENTLEMAN IS A CASE OF OBSTRUCTIVE SLEEP APNEA WHO COULD NOT USE CPAP. HE UNDERWENT INSPIRE PROCEDURE IN MARCH . HE HAS BECOME QUITE USED TO IT AND NOW KNOWS HOW TO TURN IT ON AND OFF. HE CLAIMS THAT HE DOES SLEEP WELL THROUGHOUT THE NIGHT. AND HE DOES NOT HAVE ANY RESIDUAL DISCOMFORT IN THE CHEST OR RIGHT SIDE OF THE NECK. HE DOES NOT HAVE DAYTIME SLEEPINESS. HE HAS PUT ON ABOUT 10 LB OF WEIGHT, PATIENT WOULD NEED A FOLLOW-UP SLEEP STUDY TO FIND OUT THE EFFECTIVENESS OF INSPIRE. [facility] Medical History (Updated 10/27/24 @ 16:37 by Brody Poe MD) Retrognathia Bradycardia Anxiety Thrombocytopenia Gout Depression GANESH (obstructive sleep apnea) Essential hypertension Erectile dysfunction Surgical History (Updated 10/27/24 @ 16:39 by Brody Poe MD) S/P placement of hypoglossal nerve stimulator History of carpal tunnel surgery of left wrist H/O colonoscopy History of tonsillectomy Family History Father Unknown family medical history Mother Unknown family medical history Social History Housing: House Alcohol intake: current Patient Tobacco Use Status: Never used Tobacco e-Cigarette/Vaping Use: Never Used Second Hand Smoke Exposure: No service: No Current occupational status: retired Cognitive needs: No Hearing needs: No Vision needs: No Review of Systems Const All systems reviewed & are unremarkable except as noted in HPI and below Reports snoring Eyes Reports no additional complaints ENT Reports no additional complaints Card Reports lightheadedness and Reports slow heart rate (PERIODS OF BRADYCARDIA) Resp Reports no additional complaints and Reports snoring GI Reports no additional complaints Reports no additional complaints Musc Reports no additional complaints Skin/Breast Reports system reviewed and no additional complaints, except as documented Neuro Reports no additional complaints Psych Reports no additional complaints Physical Exam Vital Signs: Last Vital Signs Pulse 53 10/27/24 15:59 BP 130/80 10/27/24 15:59 Pulse Ox 98 10/27/24 15:59 Oxygen Delivery Method Room Air 10/27/24 15:59 BMI result Body Mass Index 26.5 HEALTHY LOOKING OF NORMAL WEIGHT. Const General: healthy appearing, comfortable, no acute distress, alert and awake Orientation/consciousness: patient oriented x3 HEENT Other: MAIN ABNORMALITY IS PRESENCE OF PHASE SIGNIFICANT DEGREE OF RETROGANTHIA OF THE LOWER JAW. Head: Yes normal to inspection General nose exam: No nasal polyps present and No nasal discharge present Face and sinus: Yes sinuses nontender Mouth: oropharynx normal Teeth and gingiva: other (RETROGANTHIA OF THE LOWER JAW) Throat: Yes posterior oropharynx normal Eyes General: appearance normal, both eyes and all related structures Neck Neck: Yes normal visual inspection, Yes no lymphadenopathy, Yes trachea midline and Yes no JVD Thyroid: Thyroid normal Chest Chest palpation & inspection: normal inspection of the chest (BATTERY IN THE RIGHT PECTORAL AREA), normal palpation of entire chest wall and no tenderness Resp Effort & Inspection: normal respiratory effort Auscultation: clear to auscultation bilaterally, no crackles and no wheezes Cardio Palpation: normal PMI Rate: regular rate Rhythm: regular rhythm Heart sounds: no gallops and no murmurs Peripheral pulses: Peripheral pulses 2+ throughout GI Palpation (GI): Soft to palpation, nontender, No hepatosplenomegaly present and no masses Auscultation: normal bowel sounds Back/Spine/Pelvis Thoracic/Lumbar Spine: thoracic and lumbar spine normal to inspection Skin General skin exam: no rashes or lesions noted Neuro General: patient oriented x3 and no focal motor deficits Cranial nerves: Yes CN's II-XII intact bilaterally Extrem General: Yes normal to inspection, Yes no clubbing, cyanosis or edema and Yes no calf tenderness Psych Appearance: grossly normal and well kempt Speech and movement: Normal speech and movement present Assessment & Plan Assessment & Plan (1) Retrognathia: Comment: 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 IT REMAINS UNCHANGED. Code(s): M26.19 - Other specified anomalies of jaw-cranial base relationship Category: Medical Plan: PATIENT IS AWARE OF THE FACT THAT IT IS THE RETROGANTHIA WHICH IS THE CAUSE OF HIS SLEEP APNEA. (2) GANESH (obstructive sleep apnea): Comment: PATIENT HAS HISTORY OF OBSTRUCTIVE SLEEP APNEA, MAINLY RELATED TO MOSHE DENTAL DEFORMITY ( RETROGANTHIA OF THE LOWER JAW ) AND OBESITY. HE HAS LOST SIGNIFICANT WEIGHT FROM HIS BASELINE., AND CURRENTLY HAS MINIMAL SYMPTOMS REFLECTIVE OF GANESH. HIS SLEEP STUDY SHOWED THAT EVEN AFTER WEIGHT LOSS HE HAD SIGNIFICANT DEGREE OF SLEEP APNEA. PATIENT COULD NOT USE CPAP, SO HE WAS REFERRED FOR INSPIRE PROCEDURE( FOR HYPOGLOSSAL NERVE STIMULATION DEVICE ) Code(s): G47.33 - Obstructive sleep apnea (adult) (pediatric) Category: Medical Plan: POST INSPIRE, PROCEDURE, HIS SLEEP APNEA IS BEING TREATED WELL. HE CLAIMS THAT HE SLEEPS GOOD FOR ABOUT 6 HOURS PER NIGHT. (3) S/P placement of hypoglossal nerve stimulator: Comment: THE STIMULATOR WAS PLACED IN MARCH, AND HE HAS LEARNT HAVE TO USE IT EVERY NIGHT. THERE IS A NEED FOR POST PROCEDURE SLEEP STUDY TO FIND OUT IF IT IS TREATING HIS SLEEP APNEA EFFECTIVELY. Code(s): Z96.82 - Presence of neurostimulator Category: Surgical Plan: AFTER DISCUSSION WITH THE PATIENT AND HIS , WE HAVE DECIDED TO HAVE A HOME- BASED SLEEP STUDY , WHICH IS BEING ORDERED. Orders: Orders RT home sleep study Today G47.33 - Obstructive sleep apnea (adult) (pediatric), Z96.82 - Presence of neurostimulator Coding Level of Care Code Est Pt Level 3 (98252) Diagnoses Retrognathia M26.19 GANESH (obstructive sleep apnea) G47.33 S/P placement of hypoglossal nerve stimulator Z96.82
--- OUTSIDE RECORDS SUMMARY | 2024-10-27 17:37 | XMS_ITS ---
Author Organization [facility] Address [address] [place] [address] Care Team Providers Care Ase Master Mechanic Name Role Phone PAMELA HUGGINS Primary Care Provider Bryn Kathleen Jr REASON FOR VISIT pathology Encounters Encounter Location Date Provider Diagnosis [facility] [address] [place] [address] 01/29/2024 Bryn Thomas Jr PLAN OF TREATMENT No Information
--- OUTSIDE RECORDS SUMMARY | 2024-10-27 17:37 | XMS_ITS | Encounter Summary ---
Author Organization [facility] Address [address] [place] [address] Care Team Providers Care Mobile Application Tester Name Role Phone FaridasugarSatya ribeiro Ryan Primary Care Provider [phone] Reason for Visit * Reason Onset Date Comments PAC Surgery/procedure Scheduling_Dr Dixon/Dr.R moran 08/31/2024 Encounter Details Date Type Department Care Team (Late st Contact Info) Description 08/31/2024 Telephone [facility] [address] [address] Telephone Intake, Staff PAC Surgery/procedure Scheduling_Dr Dixon/ Social History Tobacco Use Types Packs/Day Years Used Date Smoking Tobacco: Unknown Alcohol Use Standard Drinks/Week Comments Never 0 (1 standard drink = 0.6 oz pur e alcohol) Sex and Gender Information Value Date Recorded Sex Assigned at Male 04/28/2023 12:52 PM EDT Legal Sex Male 10:12 AM EDT Gender Identity Male 04/28/2023 12:52 PM EDT Sexual Orientation Straight 04/28/2023 12 :52 PM EDT documented as of this encounter Miscellaneous Notes * Telephone Encounter - Mary Lou Gongora - 08/31/2024 12:55 PM EST Patient's has called to request and schedule injection (medial branch block) for cervical painas discussed on the LV_08/20/24. Last injection (Diagnostic cervical medial branch block ) was doneby Dr. Pastor on 06/14/24. Kindly call at [phone] to schedule. Thank you. documented in this encounter Plan of Treatment Upcoming Encounters Date Type Department Care Team (Late st Contact Info) Description 12/29/2024 11:00 AM EDT Follow-Up [facility] [address] [place] [address] Van Pastor MD [address] [facility] [place] [address] documented as of this encounter Visit Diagnoses Not on filedocumented in this encounter Care Teams Mobile Application Tester Relationship Specialty Start Date End Date Satya Polanco [address] [place] [address] PCP - General 03/07/23 documented as of this encounter
--- OUTSIDE RECORDS SUMMARY | 2024-10-27 17:37 | XMS_ITS ---
Author Organization [facility] Address [address] [place] [address] Care Team Providers Care Utility Inspector Name Role Phone Satya Song Primary Care Provider Unav ailable Herson Cisse [phone] REASON FOR VISIT 02/20/24 appt Encounters Encounter Location Date [facility] [address] [address] 12/26/2023 Herson Cisse Plan Of Treatment No Information Progress Notes * Dimitri CHOPRADOB: 5 (68 yo M)Acc No.[id number]:12/26/2023 Patient:?Dimitri Chopra :1955???Age:68 Y???Sex:Male Address:[address] [place] [address] * true * Date:? Generated for Primoi lisa/Misbah/eTransmitting on:?10/27/2024 05:37 PM EST
--- OUTSIDE RECORDS SUMMARY | 2024-10-27 17:37 | XMS_ITS | Patient Health Record ---
Author Organization [facility] Address [address] [place] [address] Care Team Providers Care Metal Bonding Helper Name Role Phone Satya Song Primary Care Provider Unav Herson Matthews Unavailable [phone] Reason For Referral No Information Medications Medication SIG (Take, Route, Frequency, Duration) Notes Start Date End Date Status amLODIPine Besylate 10 MG 1 tablet Orall y Once a day Active amLODIPine Besylate 10 MG 1 tablet Orall y Once a day Active Allopurinol 100 MG 1 tablet Orally Once a day Active Allopurinol Active Lisinopril 5 MG 1 tablet Orally Once a day Active Fluoxetine Active Atorvastatin Calcium 10 MG 1 tablet Oral ly Once a day Active Lisinopril Active Fluoxetine Active buPROPion HCl Active Social History Tobacco Use: Social History Observation Description Date Details (start date - stop date) Never Smoker NA - NA Tobacco Use/Smoking Question Answer Notes Are you a: nonsmoker Are you a: nonsmoker Additional Findings: Tobacco Non-User Current no n-smoker Alcohol Screen Question Answer Notes Did you have a drink contain ing alcohol in the past year? Yes How often did you have a dri nk containing alcohol in the past year? 2 to 4 times a month (2 points) Points 2 Interpretation Negative Tobacco use other than smoking: Question Answer Notes Are you an other tobacco user? No Are you an other tobacco user? No Problems Problem Type SNOMED Code ICD Code Onset Dates Problem Status W/U Status Risk Notes Problem Acquired hallux rigidus (4956117) Hallux rigidus, left foot (M20.22) Active confirmed Problem Acquired hammer toe of right foot (9506998314329 105) Other hammer toe(s) (acquired), right foot (M20.41) Active confirmed Problem Acquired hammer toe of left foot (8268165933828 103) Other hammer toe(s) (acquired), left foot (M20.42) Active confirmed Problem Acquired hallux rigidus (6766982) Hallux rigidus, right foot (M20.21) Active confirmed Encounters Encounter Location Date Provider Diagnosis [facility] [place] [address] [place] [id number] 12/26/2023 Herson Cisse Plan Of Treatment Pending Test Test Name Order Date X ray : Foot, left 2V 01/24/2017 X ray : Foot, right 2V 01/24/2017 Insurance Providers Payer Name Payer Address Payer Phone Subscriber Number Group Number Insured Name Patient Relationship to Insured Coverage Start Date Coverage End Date Medicare [employer] [address] [place] [address] [id number] Dimitri Chopra Self - patient is the insured [facility] [address] [place] [address] 2010 Dimitri Chopra Self - patient is the insured Medical (General) History Medical History History ICD Code Anxiety Chicken pox Depression High blood pressure Measles Mumps Arthritis Back,Hip,and Knee pain Neck pain covid-19 Depression Gout Heart disease High blood pressure Measles Mumps Chicken pox Bradycardia, controlled Surgical History Surgery Date(Month/Year) carpal tunnel surgery 2021
--- OUTSIDE RECORDS SUMMARY | 2024-10-27 17:37 | XMS_ITS | Patient Health Record ---
Author Organization [facility] Address [address] [place] [address] Care Team Providers Care Dye Padder Operator Name Role Phone PAMELA HUGGINS Primary Care Provider Bryn Kathleen Jr Unavailable [phone] ALLERGIES No Known Allergies RESULTS Component Value Reference Range Notes Pathology Reviewed date:01/29/2024 11:18:18 AM Interpretation: Performing Lab:[facility], [address] [place] [id number] Notes/Report: REASON FOR REFERRAL No Information MEDICATIONS Medication SIG (Take, Route, Frequency, Duration) Notes Start Date End Date Status buPROPion HCl 100 MG 1 tablet Orally onc e a day Active Vitamin D-3 1000 UNIT 1 capsule Orally O nce a day Active Lisinopril 5 MG 1 tablet Orally Once a day Active FLUoxetine HCl 20 MG 1 capsule in the mo rning Orally Once a day Active amLODIPine Besylate 10 MG 1 tablet Orall y Once a day Active MiraLax (colon prep) 17 GM/SCOOP mixed with Gatorade or Crystal Light Orally begin at 5:00 p.m. the day before the procedure for 1 day 10/08/2023 Active Allopurinol 100 MG 1 tablet Orally Once a day Active IMMUNIZATIONS Vaccine Route Administration Date Status Comme nts Influenza Unknown 07/18/2021 Administered Influenza Unknown 09/29/2023 Administered SOCIAL HISTORY Sex Assigned At : Social History Observation Description Sex Assigned At Unknown Alcohol Screen Question Answer Notes Did you have a drink contain ing alcohol in the past year? Yes How often did you have a dri nk containing alcohol in the past year? 2 to 3 times a week (3 points) How many drinks did you have on a typical day when you were drinking in the past year? 1 or 2 drinks (0 point) How often did you have 6 or more drinks on one occasion in the past year? Monthly (2 points) Points 5 Interpretation Positive PROBLEMS Problem Type ICD Code Onset Dates Problem Status W/U Status Risk SNOMED Code Notes Problem Colon cancer screening (Z12.11) Active confirmed 537771943 Problem Encounter for other preprocedural examination (Z01.818) Active confirmed 22596877 Problem Personal history of colonic polyps (Z86.010) Active confirmed 488458610 Encounters Encounter Location Date Provider Diagnosis [facility] Outpatient [address] [place] [id number] 11/11/2023 Bryn Thomas Jr [facility] Outpatient [address] [place], [place] [phone] 01/27/2024 Bryn Thomas Jr Encounter for screening colonoscopy Z12.11 ; Personal history of colonic polyps Z86.010 and Colon polyps K63.5 [facility] [address] [place] [phone] 11/10/2023 Bryn Thomas Jr [facility] [address] [place] [phone] 01/29/2024 Bryn Thomas Jr ASSESSMENTS Encounter Date Diagnosis Assessment Notes Treatment Notes Treatment Clinical Notes 01/27/2024 Encounter for screening colonoscopy (ICD-10 - Z12.11) 01/27/2024 Personal history of colonic polyps (ICD-10 - Z86.010) 01/27/2024 Colon polyps (ICD-10 - K63.5) PLAN OF TREATMENT Future Test Test Name Order Date COLONOSCOPY 02/28/2016 COLONOSCOPY 12/24/2021 COLONOSCOPY 10/08/2023 Insurance Providers Payer Name Payer Address Payer Phone Subscriber Number Group Number Insured Name Patient Relationship to Insured Coverage Start Date Coverage End Date [facility] [address] [address] [place], [place] [id number] DARREN LEVIN Self - patient is the insured MEDICAL (GENERAL) HISTORY Medical History History ICD Code Hypertension Gout Depression Bradycardia, negative stress test and ca rdiac monitor Colonoscopy 06/11/16, tubular adenoma x1, five-year followup Thrombocytopenia Disc disease GANESH Surgical History Surgery Date(Month/Year) left carpal tunnel surgery 2022
--- OUTSIDE RECORDS SUMMARY | 2024-10-27 17:37 | XMS_ITS ---
Author Organization [facility] Address [address] [place] [address] Care Team Providers Care Rn Shift Mgr Name Role Phone PAMELA HUGGINS Primary Care Provider Bryn Kathleen Jr [phone] REASON FOR VISIT screening, hx polyps Encounters Encounter Location Date Provider Diagnosis [facility] Outpatient [address], [place] [phone] 11/11/2023 Bryn Thomas Jr PLAN OF TREATMENT No Information
--- OUTSIDE RECORDS SUMMARY | 2024-10-27 17:37 | XMS_ITS | Encounter Summary ---
Author Organization [facility] Address [address] [place] [address] Care Team Providers Care Electro Plater Name Role Phone Satya Polanco Primary Care Provider [phone] Reason for Visit * Reason Comments Pain * Consultation (Routine) - Closed Specialty Diagnoses / Procedures Referred By Contac t Referred To Contact Orthopaedic Surgery Diagnoses Cervical spondylosis Van Pastor MD [address] [place] [address] [place] [address] Phone: tel: fax: Van Pastor MD [address] [place] [address] [place] [address] Phone: tel: fax: Referral ID Status Reason Start Date Expiration Date Visits Re quested Visits Authorized [id number] Closed 09/24/2024 03/23/2025 1 1 Encounter Details Date Type Department Care Team (Latest Contact Info) Description 10/20/2024 2:51 PM EST - 10/20/2024 11:59 PM EST Hospital Encounter [facility] [address] [place] [phone] Van Pastor MD [address] [place] [address] [place] [address] Cervical spondylosis (Primary Dx) Discharge Disposition: Home or Self Care () Social History Tobacco Use Types Packs/Day Years [...] PM EDT documented as of this encounter Last Filed Vital Signs Vital Sign Reading Time Taken Comments Blood Pressure 125/85 10/20/2024 3:58 PM EST Pulse 83 10/20/2024 3:58 PM EST Temperature 35.9 ??C (96.7 ??F) 10/20/2024 2:56 PM ES T Respiratory Rate - - Oxygen Saturation 98% 10/20/2024 3:58 PM EST Inhaled Oxygen Concentration - - Weight - - Height - - Body Mass Index - - documented in this encounter Discharge Instructions * Patient Instructions* Lucia Wall LPN - 10/20/2024 2:53 PM EST Today's procedure is Radio Frequency Ablation/Lesioning Radiofrequency ablation (RFA) is a process that involves heating a part of a pain-transmitting nerve with a radiofrequency needle to create a heat lesion. This resulting lesion prevents the nerve from sending pain signals to the brain. RFA treatment typically provides longer-lasting pain relief compared to other therapeutic injections. After your injection: No driving or operating heavy equipment for 24 hours after the injection. Rest for the remainder of the day (unless otherwise specified). Remove band aid(s) after 24 hours, they do not need to be replaced. No shower, bath, Jacuzzi, or pool for 24 hours. Use ice for discomfort at the injection site(s). (20 minutes every 3 hours as needed) NO heat for the first few days When applying ice/heat pack ALWAYS use a cloth barrier between your skin and the ice/heat pack It may take 4-6 weeks for the nerve endings to off - continue to take what you normally take for pain. Signs that the nerve endings are dying off include sunburn sensation at injection site, muscle twinge or spasms Though this procedure is generally safe, and complications are rare, we do ask you to look for any of the following: Swelling, persistent redness and bleeding or discharge from the site of injection. Fever and chills. New onset of severe back and/or neck pain. New onset of upper or lower extremity numbness and/or weakness lasting longer than 24 hours. Difficulty controlling bowel and/or bladder function after the injection. Dr. Pastor During Business Hours 8am-4pm Scheduling concerns - [phone] Clinical concerns - [phone] After normal business hours - If you feel that you need to be evaluated for clinical symptoms, go to nearest Urgent Care or Emergency Room. documented in this encounter Medications at Time of Discharge allopurinoL (ZYLOPRIM) 100 mg tablet 04/22/2024 amLODIPine (NORVASC) 10 mg tablet Take 10 mg by mouth once a day. atorvastatin (LIPITOR) 10 mg tablet Take 10 mg by mouth once a day. FLUoxetine (PROzac) 40 mg capsule Take 40 mg by mouth once a day. ibuprofen (MOTRIN) 600 mg tablet PLEASE SEE ATTACHED FOR DETAILED DIRECTIONS 04/22/2024 lisinopriL (PRINIVIL,ZESTRI L) 5 mg tablet Take 5 mg by mouth once a day. documented as of this encounter Progress Notes * Van Pastor MD - 10/20/2024 3:10 PM ESTAssociated Order(s): Radiofrequency Ablation Post-Procedure Diagnose(s): Cervical spondylosis Cervical MEDIAL BRANCH RFL Radiofrequency Ablation Indication(s): Cervical Facet Arthropathy Date/Time: 10/20/2024 3:00 PM Performed by: Van Pastor MD Authorized by: Van Pastor MD Consent: Patient identity confirmed: Name and with patient and Name and MRN on the patient's armband Verbal consent obtained: Yes Written consent obtained: Yes Risk and benefits discussed: Yes Written informed consent was obtained from the patient. Patient states understanding of procedure being performed: Yes Patient's understanding of procedure matches consent: Yes Harmon Protocol: Procedure consent matches procedure scheduled: Yes All relevant documents/tests are correctly identified, labeled, and matched to patient: Yes Relevant tests/ Imaging studies available/reviewed: Yes Correct site marked: Yes Required blood products, implants, devices and special equipment available: Yes Immediately prior to the procedure a time out was called: Yes An attending physician was present for the procedure OR the procedure was performed by an Advanced Practice Provider: Yes The patient was admitted as an outpatient to the ambulatory injection suite at [facility]. Vital signs were monitored before and after the procedure. Patient laid on the fluoroscopy table in the prone position. Cervical RFL Preprocedure DX: Cervical facet arthropathy Postprcoedure DX: Same LEVELS: bilateral C-2 and C-3 This patient is known to our Pain Management [facility] for neck pain facet arthropathy.??The patient has had a previous MBB with good results, scheduled today for a Median Branch Radiofrequency ablationunder X-Ray guidance.??Upon discussion of potential risks, and benefits, of the procedure, including the option of not doing the procedure today, the patient elected to go ahead with the procedure and gave written informed consent. The patient walked to the procedure room and was placed prone position on the procedure table. Hemodynamic monitors consisting of pulse oximetry were applied and the patient remained hemodynamically stable all throughout the procedure.??The neck was extensively prepped and draped in a standard sterile fashion with Chlorhexidine x 3. The C arm was brought above the patient neck and X-ray were taken to identify the appropriate levels,??Under AP and lateral views appropriate facet joints were identified. Skin was anesthetized with 1 cc of lidocaine 1% per level via a 27 G 1 1/2 inch needle,??through the anesthetized skin we introduced a 20G 3 1/2 inch insulated RFL needle to the targeted facet joint. Upon contacting bone and confirmation with AP and lateral Xray, sensory at 50 Hz and Motor testing at 2 Hz were conducted,??Impedance was , positive sensory stimulation was at 0.6 and negative motor stimulation at 2.0 at the level of C- 2??,??after negative aspiration for heme CSF and fluids and no paresthesia whatsoever we injected 1 cc of 2% lidocaine and waited for a minute before we started??lesioning at 80 degrees C for 90 seconds. Needle was taken out and was intact. The same technique was repeated at the other levels,??At C-3 level: Sensory testing was positive at 0.5 and motor testing was negative at 2.0,??The patient tolerated the procedure very well. Back was cleaned with Alcohol and sterile Bandaids were applied. The patient returned to the Recovery Room and recovered for an additional 20 minutes before being discharged home with written discharge instructions and a ride. The patient tolerated the procedure well. Same procedure was repeated on the other side. With positive sensory and negative motor stimulation The patient was monitored in stable condition following the procedure and was subsequently discharged with written instructions and an escort. ?? Anesthesia: Local anesthesia Complications: None Patient advised to contact the Pain Center for any of the followin.? Fever, chills or night sweats 2.? New onset of severe sharp pain 3.? Any new upper/lower extremity weakness or numbness 4.? Any questions regarding the procedure ?? If unable to contact the Pain the patient is instructed to an Emergency Department for further evaluation. Post-Procedure Details: Patient tolerance: patient tolerated the procedure well with no immediate complications The patient was observed in the ambulatory surgery department. Instructions: post-procedure instructions were reviewed The patient discharged from clinic in stable condition. documented in this encounter Miscellaneous Notes * Addendum Note - Lucia Wall LPN - 10/20/2024 4:24 PM ESTEncounter addended by: Lucia Wall LPN on: 10/20/2024 4:24 PM Actions taken: Flowsheet accepted, SmartForm saved * Addendum Note - Lucia Wall LPN - 10/20/2024 3:59 PM ESTEncounter addended by: Lucia Wall LPN on: 10/20/2024 3:59 PM Actions taken: SmartForm saved, Flowsheet accepted documented in this encounter Plan of Treatment Upcoming Encounters Date Type Department Care Team (Late st Contact Info) Description 12/29/2024 11:00 AM EDT Follow-Up [facility] [address] [address] Van Pastor MD [address] [place] [address] [place]ventional [place] [address] documented as of this encounter Procedures * Due to [place] [employer] law, this organization might not be sharing negative HIV tests. Procedure Name Priority Date/Time Associated Diagnosis Comments DE DSTR NROLYTC AGNT PARVERTEB FCT ADDL CRVCL/THORA Routine 10/20/2024 3:00 PM EST Cervical spondylosis DE DSTR NROLYTC AGNT PARVERTEB FCT SNGL CRVCL/THORA Routine 10/20/2024 3:00 PM EST Cervical spondylosis documented in this encounter Results * Due to [place] [employer] law, this organization might not be sharing negative HIV tests. * DE DSTR NROLYTC AGNT PARVERTEB FCT SNGL CRVCL/THORA, DE DSTR NROLYTC AGNT PARVERTEB FCT ADDL CRVCL/THORA (10/20/2024 3:00 PM EST) Van Rivera MD - 10/20/2024 3:00 PM EST Van Pastor MD ? 10/20/2024 ??3:48 PM Cervical MEDIAL BRANCH RFL Radiofrequency Ablation ? Indication(s): Cervical Facet Arthropathy ? Date/Time: 10/20/2024 3:00 PM ? Performed by: Van Pastor MD ? Authorized by: Van Pastor MD Consent: ? Patient identity confirmed: Name and with patient and Name and MRN on the patient's armband ? Verbal consent obtained: Yes ? Written consent obtained: Yes ? Risk and benefits discussed: Yes ? Written informed consent was obtained from the patient. ? Patient states understanding of procedure being performed: Yes ? Patient's understanding of procedure matches consent: Yes Harmon Protocol: ? Procedure consent matches procedure scheduled: Yes ? All relevant documents/tests are correctly identified, labeled, and matched to patient: Yes ? Relevant tests/ Imaging studies available/reviewed: Yes ? Correct site marked: Yes ? Required blood products, implants, devices and special equipment available: Yes ? Immediately prior to the procedure a time out was called: Yes An attending physician was present for the procedure OR the procedure was performed by an Advanced Practice Provider: Yes ? The patient was admitted as an outpatient to the ambulatory injection suite at [facility]. ? Vital signs were monitored before and after the procedure. ? Patient laid on the fluoroscopy table in the prone position. Cervical RFL Preprocedure DX: Cervical facet arthropathy Postprcoedure DX: Same LEVELS: bilateral C-2 and C-3 This patient is known to our Pain Management Center for neck pain facet arthropathy.??The patient has had a previous MBB with good results, scheduled today for a Median Branch Radiofrequency ablation under X-Ray guidance.??Upon discussion of potential risks, and benefits, of the procedure, including the option of not doing the procedure today, the patient elected to go ahead with the procedure and gave written informed consent. The patient walked to the procedure room and was placed prone position on the procedure table. Hemodynamic monitors consisting of pulse oximetry were applied and the patient remained hemodynamically stable all throughout the procedure.??The neck was extensively prepped and draped in a standard sterile fashion with Chlorhexidine x 3. The C arm was brought above the patient neck and X-ray were taken to identify the appropriate levels,??Under AP and lateral views appropriate facet joints were identified. Skin was anesthetized with 1 cc of lidocaine 1% per level via a 27 G 1 1/2 inch needle,??through the anesthetized skin we introduced a 20G 3 1/2 inch insulated RFL needle to the targeted facet joint. Upon contacting bone and confirmation with AP and lateral Xray, sensory at 50 Hz and Motor testing at 2 Hz were conducted,??Impedance was , positive sensory stimulation was at ??0.6 and negative motor stimulation at 2.0 at the level of ??C-2??,??after negative aspiration for heme CSF and fluids and no paresthesia whatsoever we injected 1 cc of 2% lidocaine and waited for a minute before we started??lesioning at 80 degrees C for 90 seconds. Needle was taken out and was intact. The same technique was repeated at the other levels,??At ??C-3 level: Sensory testing was positive at ??0.5 and motor testing was negative at 2.0,??The patient tolerated the procedure very well. Back was cleaned with Alcohol and sterile Bandaids were applied. The patient returned to the Recovery Room and recovered for an additional 20 minutes before being discharged home with written discharge instructions and a ride. The patient tolerated the procedure well. Same procedure was repeated on the other side. With positive sensory and negative motor stimulation The patient ??was monitored in stable condition following the procedure and was subsequently discharged with written instructions and an escort. ?? Anesthesia: Local anesthesia Complications: None Patient advised to contact the Pain Center for any of the followin.? Fever, chills or night sweats 2.? New onset of severe sharp pain 3.? Any new upper/lower extremity weakness or numbness 4.? Any questions regarding the procedure ?? If unable to contact the Pain the patient is instructed to an Emergency Department for further evaluation. Post-Procedure Details: ? Patient tolerance: patient tolerated the procedure well with no immediate complications ? The patient was observed in the ambulatory surgery department. ? Instructions: post-procedure instructions were reviewed ? The patient discharged from clinic in stable condition. us Van Pastor MD IN CLINIC/BEDSIDE ORDERABLES Final Result documented in this encounter Visit Diagnoses Diagnosis Cervical spondylosis- Primary Cervical spondylosis without myelopathy documented in this encounter Administered Medications Inactive Administered Medications - up to 3 most recent administrations Medication Order MAR Action Action Date Dose Rate Site lidocaine (XYLOCAINE) 2% (20 mg/mL) injection 3 mL 3 mL, injection, One-time injection, Starting on Fri10/20/24 at 1500, 1 dose, Until Fri10/20/24 at 1500Indications:Cervical spondylosis Given 10/20/2024 3:00 PM EST 3 mL lidocaine PF (XYLOCAINE) 1% (10 mg/mL) injection 5 mL 5 mL, injection, One-time injection, Starting on Fri10/20/24 at 1500, 1 dose, Until Fri10/20/24 at 1500Indications:Cervical spondylosis Given 10/20/2024 3:00 PM EST 5 mL documented in this encounter Care Teams Electro Plater Relationship Specialty Start Date End Date Satya Polanco [address] [place] [address] PCP - General 03/07/23 documented as of this encounter
--- OUTSIDE RECORDS SUMMARY | 2024-10-27 17:37 | XMS_ITS ---
Author Organization [facility] thaddeus [place] Address [address] [place] [address] Care Team Providers Care Ship Engineer Name Role Phone Satya Song Primary Care Provider Unav Herson Matthews Unavailable [phone] Allergies No Known Allergies Medications Medication SIG [...] 02/20/2024 Encounters Encounter Location Date Provider Diagnosis [facility] [address] [address] 02/20/2024 Herson Cisse Plan Of Treatment No Information Progress Notes * Dimitri CHOPRADOB: 5 (69 yo M)Acc No.[id number]:02/20/2024 Progress Notes Patient:?Dimitri CHOPRA Provider:?Herson Cisse DPM :1955???Age:68 Y???Sex:Male [place] e:02/20/2024 Address:[address] [place] [address] , [place] [address] Pcp:ANNE-MARIE Earl Subjective: * Chief Complaints: * ??? * ROS:?General/Constitutional:?Nausea?denies.?Vomiting?denies.?Hunger Thirst?denies.?Loss appetite?denies.?Chills?denies.?Fatigue?denies.?Fever?denies.?Night Sweats?denies.?Unexplained weight loss?denies.?Unexplained weight gain?denies.?HEENTM:?Dentures?denies.?Dizziness?denies.?Glasses/contacts?admits.?Retinopathy?de nies.?Blurred/double vision?denies.?TMJ?denies.?Discharge/drainage?denies.?Implants?denies.?Sore throat?denies.?Dental implants?denies.?Hard of hearing ?denies.?Difficulty chewing/swallowing/speaking?denies.?Nose bleeds?denies.?Sore mouth?denies.?Respiratory:?On Oxygen?denies.?Pneumonia/pleurisy?denies.?Bronchitis?denies.?Emphysema?denies.?C oughing?denies.?Cough blood?denies.?Shortness of breath?denies.?Wheezing?denies.?Cardiovascular:?Pacemaker?denies.?MVP?denies.?WPW?denies.?CHF?denies.?Heart attack?denies.?Septal defect?denies.?Rapid beat?denies.?Chest pain ?denies.?Atrial Fib.?denies.?Murmur/Palpitations?denies.?Gastrointestinal:?Hemorrhoids?denies.?Stomach/Abdominal pain?denies.?Dark blood stool?denies.?Irritable bowel ?denies.?Constipation?denies.?Diarrhea?denies.?Hematology:?Swelling?denies.?Clots?denies.?Varicose Veins?denies.?Bruising?denies.?Bleeding problem?denies.?Genitourinary:?Blood urine?denies.?Frequent/Painfu/urination/bladder control?denies.?Kidney stones?denies.?Infection (UTI)?denies.?Nephropathy?denies.?sex trans dis (STD)?denies.?Prostate?denies.?Musculoskeletal:?Hammertoes?admits.?Bunions?admits.?Back Pain?denies.?Muscle Cramps/ Resting?denies.?Muscle cramps / walking?denies.?Generalized aches and pains?denies.?Weakness?denies.?Integ.:?Medel?denies.?Scars?denies.?Corns/calluses?admits.?Ingrown nails?denies.?Painful nails?denies.?Open Sores?denies.?Rashes?denies.?Neurologic:?Difficulty sleeping?denies.?Brain disorder?denies.?Numbness?denies.?Balance trouble?denies.?Confusion?denies.?Fainting/blackouts?denies.?Tingling?denies.?Tr emors?denies.? * Medical History:?Arthritis, Back,Hip,and Knee pain, Neck pain, Covid-19, Depression, Gout, Heart disease, High blood pressure, Measles, Mumps, Chicken pox, Bradycardia, controlled. * Surgical History:?carpal gretchen willy surgery 2021. * Family History:?Mother: dece ased.?Father: .? * Social History:?Tobacco Use:?Tobacco Use/Smoking?Are you a:?nonsmoker ?Tobacco use other than smoking?Are you an other tobacco user??No ???Drugs/Alcohol:?Drugs?Have you used drugs other than those for medical reasons in the past 12 months??No ?Alcohol Screen?Did you have a drink containing alcohol in the past year??Yes ?How often did you have a drink containing alcohol in the past year??2 to 4 times a month (2 points) ?Points?2 ?Interpretation?Negative ???Miscellaneous:?Caffeine: yes. ?Exercise: yes, gardening/yard work, walking. ?Marital status: . ?Occupation: Retired. * Medications:?Taking Allopuri nol 100 MG Tablet 1 tablet Orally Once a day , Taking amLODIPine Besylate 10 MG Tablet 1 tablet Orally Once a day , Taking Atorvastatin Calcium 10 MG Tablet 1 tablet Orally Once a day , Taking Fluoxetine , Taking Lisinopril 5 MG Tablet 1 tablet Orally Once a day * Allergies:?N.K.D.A. Objective: * Vitals:?Ht: 5ft 6in, Wt:160, BMI:25.82, Shoe size: 8.5, Ht-cm: 167.64 cm, Wt-k.57 kg. Assessment: Plan: * Treatment: * Images: * The named appointment provid er may or may not be the originator of this progress note, and it is not deemed complete until electronically signed by the appointment provider. Sign off status: Pending * Provider:?Herson Cisse DPM Date:? 024 Generated for Clemente gonzalez/Misbah/Abdoulaye on:?10/27/2024 05:37 PM EST
--- OUTSIDE RECORDS SUMMARY | 2024-10-27 17:38 | XMS_ITS | Clinical Summary ---
Author Organization [facility] Address [address] [place] [address] Care Team Providers Care Automobiles Salesperson Name Role Phone JacintoSatya ribeiro Ryan Primary Care Provider Allergies No known active allergies Medications allopurinoL (ZYLOPRIM) 100 mg tablet 4 Active ibuprofen (MOTRIN) 600 mg tablet PLEASE SEE ATTACHED FOR DETAILED DIRECTIONS 4 Active amLODIPine (NORVASC) 10 mg tablet Take 10 mg by mouth once a day. Active lisinopriL (PRINIVIL,ZESTR IL) 5 mg tablet Take 5 mg by mouth once a day. Active FLUoxetine (PROzac) 40 mg capsule Take 40 mg by mouth once a day. Active atorvastatin (LIPITOR) 10 mg tablet Take 10 mg by mouth once a day. Active Hospital, Clinic, or Other Facility Administered Medication Ordered Dose Route Frequency Start Date End Date Status lidocaine PF (XYLOCAINE) 1% (10 mg/mL) injection 5 mLIndications:Cervi yasmin spondylosis 5 mL injection One-time injection 10/20/2024 10/20/2024 Ended lidocaine (XYLOCAINE) 2% (20 mg/mL) injection 3 mLIndications:Cervi yasmin spondylosis 3 mL injection One-time injection 10/20/2024 10/20/2024 Ended Encounters Date Type Department Care Team Description 10/20/2024 2:51 PM EST - 10/20/2024 11:59 PM EST Hospital Encounter [facility] [address], [place] [id number] Van Pastor MD Pain Discharge Disposition: Home or Self Care () 10/20/2024 2:51 PM EST - 10/20/2024 11:59 PM EST Hospital Encounter [facility] [address] [place] [address] Van Pastor MD Cervical spondylosis (Primary Dx) Discharge Disposition: Home or Self Care () 09/13/2024 2:40 PM EST - 09/13/2024 11:59 PM EST Hospital Encounter [facility] [address] [place] [address] Van Pastor MD Pain Discharge Disposition: Home or Self Care () 09/13/2024 2:39 PM EST Hospital Encounter [facility] [address] [place] [address] Van Pastor MD Cervical spondylosis (Primary Dx) Discharge Disposition: Home or Self Care () 08/31/2024 Telephone [facility] [address] [place] [address] Telephone Intake, Staff PAC Surgery/procedure Scheduling_Dr Dixon/ ov 2024 11:15 AM EST Follow-Up [facility] [address] [place] [address] Brennan Dixon MD Cervical spondylosis (Primary Dx) from Last 3 Months Social History Tobacco Use Types Packs/Day Years Used Date Smoking Tobacco: Unknown Tobacco Cessation:Counseling Given: Not Answered Alcohol Use Standard Drinks/Week Comments Never 0 (1 standard drink = 0.6 oz pur e alcohol) Sex and Gender Information Value Date Recorded Sex Assigned at Male 04/28/2023 12:52 PM EDT Legal Sex Male 10:12 AM EDT Gender Identity Male 04/28/2023 12:52 PM EDT Sexual Orientation Straight 04/28/2023 12 :52 PM EDT Last Filed Vital Signs Vital Sign Reading Time Taken Comments Blood Pressure 125/85 10/20/2024 3:58 PM EST Pulse 83 10/20/2024 3:58 PM EST Temperature 35.9 ??C (96.7 ??F) 10/20/2024 2:56 PM ES T Respiratory Rate 16 03/31/2024 9:14 AM EDT Oxygen Saturation 98% 10/20/2024 3:58 PM EST Inhaled Oxygen Concentration - - Weight - - Height - - Body Mass Index - - Plan of Treatment Upcoming Encounters Date Type Department Care Team (Late st Contact Info) Description 12/29/2024 11:00 AM EDT Follow-Up [facility] B [address] [place] [address] Van Pastor MD [address] [facility] [place] [address] Health Maintenance Due Date Last Done Comments Cologuard 1955 Colon Cancer Screening 1955 Colonoscopy 1955 FOBT / Fit Test 1955 Hepatitis C Screening 1955 Sigmoidoscopy 1955 Zoster Vaccines (2 of 3) 11/05/2015 09/10/2015 Pneumococcal Vaccine: 65+ Years (2 of 2 - PCV) 2020 07/14/2016 COVID-19 Vaccine (4 - season) 2024 09/19/2021, 12/26/2020, 11/28/2020 Influenza Vaccine (#1) 2024 , 07/14/2019, 06/22/2018, Additional history exists Alcohol/Substance Use Screening 09/29/2024 Depression Screening and Follow-Up 09/29/2024 Health Care Proxy Review 09/29/2024 Social Drivers of Health Annual Screening 09/29/2024 DTaP,Tdap,and Td Vaccines (2 - Td or Tdap) 09/10/2025 09/10/2015 RSV Vaccine (60+ years old and patients) (1 - 1-dose 75+ series) 2030 Hepatitis B Vaccines Aged Out No long er eligible based on patient's age to complete this topic Procedures * Due to [place] state law, this organization might not be sharing negative HIV tests. Procedure Name Priority Date/Time Associated Diagnosis Comments [place] C-ARM INJECTION NON-REPORTABLE Routine 10/20/2024 3:55 PM EST Pain VA DSTR NROLYTC AGNT PARVERTEB FCT ADDL CRVCL/THORA Routine 10/20/2024 3:00 PM EST Cervical spondylosis VA DSTR NROLYTC AGNT PARVERTEB FCT SNGL CRVCL/THORA Routine 10/20/2024 3:00 PM EST Cervical spondylosis FL C-ARM INJECTION NON-REPORTABLE Routine 09/13/2024 3:51 PM EST Pain VA INJ DX/THER AGNT PARAVERT FACET JOINT,IMG GUIDE,CERV/THORAC, 1ST LEVEL Routine 09/13/2024 3:00 PM EST Cervical spondylosis from Last 3 Months Results * Due to [place] state law, this organization might not be sharing negative HIV tests. * FL C-Arm Injection Spine NONREPORTABLE (10/20/2024 3:55 PM EST) Only the most recent of2 resultswithin the time period is included. Narrative IMAGING - 10/20/2024 4:22 PM EST This procedure does not contain a result. Please see the surgeon's note for official report. us Van Pastor MD IMG FLUOROSCOPY PROCEDURES Fi nal Result IMAGING * VA DSTR NROLYTC AGNT PARVERTEB FCT SNGL CRVCL/THORA, VA DSTR NROLYTC AGNT PARVERTEB FCT ADDL CRVCL/THORA [...] Patient's understanding of procedure matches consent: Yes [place] Protocol: ? Procedure consent matches procedure scheduled: [...] outpatient to the ambulatory injection suite at [facility]. ? Vital signs were monitored before [...] Pastor MD IN CLINIC/BEDSIDE ORDERABLES Final Result * VA INJ DX/THER AGNT PARAVERT FACET JOINT,IMG GUIDE,CERV/THORAC, 1ST LEVEL (09/13/2024 3:00 PM EST) Van Rivera MD - 09/13/2024 3:00 PM EST Van Pastor MD ? 09/13/2024 ??4:22 PM C2,Cervical MBB C2,Cervical MBB Paravert Facet Joint ? Indication(s): Cervical Spondylosis ? Date/Time: 09/13/2024 3:00 PM ? Performed by: Van Pastor [...] Patient's understanding of procedure matches consent: Yes [place] Protocol: ? Procedure consent matches procedure scheduled: [...] outpatient to the ambulatory injection suite at [facility]. ? Vital signs were monitored before and after the procedure. ? Patient laid on the fluoroscopy table in the L lateral decubitus position. CERVICAL ??MEDIAL BRANCH BLOCKS Preprocedural Diagnosis: Facet Arthropathy. ??Neck pain. Post procedure Diagnosis: Same. Levels: bilateral C2 MBBs The patient walked to the procedure room and was placed LEFT lateral decubitus position on the procedure table with pillows under the abdomen and chest. Hemodynamic monitors consisting of non invasive blood pressure and pulse oximetry were applied and the patient remained hemodynamically stable all throughout the procedure, The neck was extensively prepped and draped in a standard sterile fashion with isopropyl alcohol x 3. With fluoroscopic guidance, a lateral approach was used to meticulously square the cervical articular facet pillars. Lateral fluoroscopy was used to position a 25-gauge 1.5 inch needle adjacent to the Right C2, C3, and C4 trapezoid articular processes in the middle of each trapezoid. At this point, 1 ml of lidocaine 2% and 5 MG of Dexamethasone ??were injected after negative aspiration. The needles were removed. Same procedure was repeated on the other side ?? The patient tolerated the procedure well. The patient ??was monitored in stable condition [...] to an Emergency Department for further evaluation. ? Dressing: Band-Aid Post-Procedure Details: ? Patient tolerance: patient tolerated the procedure well with no immediate complications ? The patient was observed in the ambulatory surgery department. ? Instructions: post-procedure instructions were reviewed ? The patient discharged from clinic in stable condition. Van Pastor MD IN CLINIC/BEDSIDE ORDERABLES Final Result from Last 3 Months Insurance [employer] M[employer] Care Teams Automobiles Salesperson Relationship Specialty Start Date End Date Satya Polanco [address] [place] [address] PCP - General 03/07/23
--- OUTSIDE RECORDS SUMMARY | 2024-10-27 17:38 | XMS_ITS | Encounter Summary ---
Author Organization [facility] Address [address] [place] [address] Care Team Providers Care Insulation Board Back Tender Name Role Phone Satya Polanco Primary Care Provider Encounter Details Date Type Department Care Team (Latest Contact Info) Description 10/20/2024 2:51 PM EST - 10/20/2024 11:59 PM EST Hospital Encounter [facility] XRay [address] [place] [address] Van Pastor MD 119 [facility] [place] [address] Pain Discharge Disposition: Home or Self Care [...] PM EDT documented as of this encounter Medications at Time of Discharge [...] a day. documented as of this encounter Plan of Treatment Upcoming Encounters Date Type Department Care Team (Late st Contact Info) Description 12/29/2024 11:00 AM EDT Follow-Up [facility] Spine [facility] B [address] [place] [id number] Van Pastor MD 119 [facility] [place] [address] documented as of this encounter Procedures * Due to [place] [employer] law, this organization might not be sharing negative HIV tests. Procedure Name Priority Date/Time Associated Diagnosis Comments [place] C-ARM INJECTION NON-REPORTABLE Routine 10/20/2024 3:55 PM EST Pain documented in this encounter Results * Due to [place] [employer] law, this organization might not be sharing negative HIV tests. * [place] C-Arm Injection Spine NONREPORTABLE (10/20/2024 3:55 PM EST) Narrative IMAGING - 10/20/2024 4:22 PM EST This procedure does not contain a result. Please see the surgeon's note for official report. us Van Pastor MD IMG FLUOROSCOPY PROCEDURES Fi nal Result IMAGING documented in this encounter Visit Diagnoses Diagnosis Pain Generalized pain documented in this encounter Care Teams Insulation Board Back Tender Relationship Specialty Start Date End Date Satya Polanco [address] [place] [address] PCP - General 03/07/23 documented as of this encounter
--- OUTSIDE RECORDS SUMMARY | 2024-10-27 17:38 | XMS_ITS | Clinical Summary ---
Author Organization [facility] Address [address] [place] [address] Care Team Providers Care Clerk General Office Name Role Phone Satya Polanco NP Primary Care Provider Medications Medication Sig Dispensed Refills Start Date End Date Status allopurinoL (ZYLOPRIM) 100 mg tablet Take 100 mg by mouth daily. Active lisinopriL (PRINIVIL,ZESTRIL) 5 mg tablet Take 5 mg by mouth daily. Active FLUoxetine (PROzac) 20 mg tablet Take 20 mg by mouth daily. Active atorvastatin (LIPITOR) 10 mg tablet Take 10 mg by mouth daily. Active amLODIPine (NORVASC) 10 mg tablet Take 10 mg by mouth daily. Active Active Problems Problem Noted Date Diagnosed Date Left carpal tunnel syndrome 02/25/2023 Essential hypertension 05/22/2022 Cardiac arrhythmia 05/22/2022 Bradycardia 05/22/2022 Overview (10/15/2024): Last Assessment & Plan: This delightful 66-year-old gentleman appears to have sinus bradycardia likely from the high vagal tone. I see very little evidence of sinus node dysfunction based on his current work-up and lack of symptoms. I would avoid any rate slowing medications. I would assure that a thyroid level was done given hypothyroidism but certainly trigger bradycardia. Otherwise, I see no indication for permanent pacemaker implantation I do think he can proceed with a colonoscopy as planned. Is very unlikely for him to have any complications of the procedure based on his current rhythm. Certainly atropine or a transient beta agonist could be used if needed during the peak of sedation effects. Cardiovascular function study, abnormal 05/22/20 Surgical History Surgery Date Site/Laterality Comments COLONOSCOPY PROCEDURE: HISTORICAL COLONOSCOPY TONSILLECTOMY PROCEDURE: HISTORICAL TONSILLECTOMY Medical History Medical History Date Comments Erectile dysfunction DX:Erectile dysfunction Cervical pain (neck) DX:Cervical pain (neck) Anxiety disorder DX:Anxiety diso rder Depression, major, in partia l remission (CMS/HCC) DX:Depression, major, in par tial remission (HCC) Family History Relation Name Status Comments Father Social History Tobacco Use Types Packs/Day Years Used Date Smoking Tobacco: Never Smokeless Tobacco: Never Alcohol Use Standard Drinks/Week Comments Yes 0 (1 standard drink = 0.6 oz pur e alcohol) Sex and Gender Information Value Date Recorded Sex Assigned at Not on file Gender Identity Not on file Sexual Orientation Not on file Obstetrics History Last Filed Vital Signs Vital Sign Reading Time Taken Comments Blood Pressure 140/80 10/28/2023 8:09 AM EST Sitting L Arm Pulse 44 10/28/2023 8:09 AM EST Temperature - - Respiratory Rate - - Oxygen Saturation - - Inhaled Oxygen Concentration - - Weight 73.4 kg (161 lb 12.8 oz) 10/28/2023 8:09 AM EST Height 167.6 cm (5' 6 ) 10/28/2023 8:09 AM EST Body Mass Index 26.12 10/28/2023 8:09 AM EST Plan of Treatment Upcoming Encounters Date Type Department Care Team (Late st Contact Info) Description 11/17/2024 7:40 AM EST Office Visit [facility] [address] [facility] [address] [place] [address] Juliette Bill NP [address] [facility] [[email or web address]] [address] [place] [address] Health Maintenance Due Date Last Done Comments DTaP,Tdap,and Td Vaccines (1 - Tdap) 1974 Zoster Vaccines (1 of 2) 2005 Pneumococcal Vaccine: 65+ Ye ars (1 of 1 - PCV) 2020 Abdominal Aortic Aneurysm (A AA) Screen 09/08/2022 Cholesterol Screening (Lipid Panel) 09/08/2022 Colorectal Cancer Screening: Colonoscopy 09/08/2022 Depression Screening 09/08/2022 Falls Risk Assessment 09/08/2022 Hepatitis C Screening 09/08/2022 Social Influencers of Health Screening 09/08/2022 Hypertension/CHF/CAD Annual BMP Blood Test 09/13/2022 COVID-19 Vaccine (2023-2 5 season) 2024 Influenza Vaccine (#1) 2024 RSV Immunization Patients 60 + Years Old (1 - 1-dose 75+ series) 2030 HIB Vaccines Aged Out No longer eligi ble based on patient's age to complete this topic HPV Vaccines Aged Out No longer eligi ble based on patient's age to complete this topic Hepatitis A Vaccines Aged Out No long er eligible based on patient's age to complete this topic Hepatitis B Vaccines Aged Out No long er eligible based on patient's age to complete this topic IPV Vaccines Aged Out No longer eligi ble based on patient's age to complete this topic MMR Vaccines Aged Out No longer eligi ble based on patient's age to complete this topic Meningococcal ACWY Vaccine Aged Out N o longer eligible based on patient's age to complete this topic RSV Immunization Patients Un lulu 20 months Aged Out No longer eligible b ased on patient's age to complete this topic Varicella Vaccines Aged Out No longer eligible based on patient's age to complete this topic Care Teams Clerk General Office Relationship Specialty Start Date End Date Satya Polanco NP [address] [place], [place] PCP - General 04/03/22
--- OUTSIDE RECORDS SUMMARY | 2024-10-27 17:38 | XMS_ITS | Referral Summary ---
Author Organization [facility] Address [address] [place] [address] Care Team Providers Care Erp Programmer Name Role Phone Satya Polanco Primary Care Provider [phone] Encounters Date Type Department Care Team Description 10/20/2024 2:51 PM EST - 10/20/2024 11:59 PM EST Hospital Encounter [facility] XRay [address] [place] [address] Van Pastor MD Pain Discharge Disposition: Home or Self Care () 10/20/2024 2:51 PM EST - 10/20/2024 11:59 PM EST Hospital Encounter [facility] [address] [place] [address] Van Pastor MD Cervical spondylosis (Primary Dx) Discharge Disposition: Home or Self Care () 09/13/2024 2:40 PM EST - 09/13/2024 11:59 PM EST Hospital Encounter [facility] XRay [address] [place] [address] Van Pastor MD Pain Discharge Disposition: Home or Self Care () 09/13/2024 2:39 PM EST Hospital Encounter [facility] [address] [place] [address] Van Pastor MD Cervical spondylosis (Primary Dx) Discharge Disposition: Home or Self Care () 08/31/2024 Telephone [facility] B [address] [place] [address] Telephone Intake, Staff PAC Surgery/procedure Scheduling_Dr Dixon/ ov 2024 11:15 AM EST Follow-Up [facility] B [address] [place] [address] Brennan Dixon MD Cervical spondylosis (Primary Dx) from Last 3 Months Allergies No known active allergies Medications allopurinoL [...] mL injection One-time injection 10/20/2024 10/20/2024 Ended Social History Tobacco Use Types Packs/Day Years [...] Info) Description 12/29/2024 11:00 AM EDT Follow-Up [facility] B [address] [place] [address] Van Pastor MD 119 [facility] [place] [address] Procedures * Due to [place] [employer] law, this organization might not be sharing negative HIV tests. Procedure Name Priority Date/Time Associated Diagnosis Comments FL C-ARM INJECTION NON-REPORTABLE Routine 10/20/2024 3:55 PM EST Pain PA DSTR NROLYTC AGNT PARVERTEB FCT ADDL CRVCL/THORA Routine 10/20/2024 3:00 PM EST Cervical spondylosis PA DSTR NROLYTC AGNT PARVERTEB FCT SNGL CRVCL/THORA Routine 10/20/2024 3:00 PM EST Cervical spondylosis FL C-ARM INJECTION NON-REPORTABLE Routine 09/13/2024 3:51 PM EST Pain PA INJ DX/THER AGNT PARAVERT FACET JOINT,IMG GUIDE,CERV/THORAC, 1ST LEVEL Routine 09/13/2024 3:00 PM EST Cervical spondylosis from Last 3 Months Results * Due to [place] [employer] law, this organization might not be sharing [...] FLUOROSCOPY PROCEDURES Fi nal Result IMAGING * PA DSTR NROLYTC AGNT PARVERTEB FCT SNGL CRVCL/THORA, PA DSTR NROLYTC AGNT PARVERTEB FCT ADDL CRVCL/THORA [...] Patient's understanding of procedure matches consent: Yes [place] Protocol: ? Procedure consent matches procedure scheduled: [...] outpatient to the ambulatory injection suite at [facility]. ? Vital signs were monitored before and [...] MD IN CLINIC/BEDSIDE ORDERABLES Final Result * PA INJ DX/THER AGNT PARAVERT FACET JOINT,IMG GUIDE,CERV/THORAC, [...] Patient's understanding of procedure matches consent: Yes [place] Protocol: ? Procedure consent matches procedure scheduled: [...] outpatient to the ambulatory injection suite at [facility]. ? Vital signs were monitored before and [...] Final Result from Last 3 Months Insurance [facility] Care Teams Erp Programmer Relationship Specialty Start Date End Date Satya Polanco [address] [place] [address] PCP - General 03/07/23
--- OUTSIDE RECORDS SUMMARY | 2024-10-27 17:38 | XMS_ITS ---
Author Organization [facility] Address [address] [place] [address] Care Team Providers Care Archival Records Clerk Name Role Phone PAMELA HUGGINS Primary Care Provider Bryn Kathleen Jr REASON FOR VISIT screening, hx polyps Encounters Encounter Location Date Provider Diagnosis [facility] Outpatient [address] [place] [phone] 01/27/2024 Bryn Thomas Jr Encounter for screening colonoscopy Z12.11 ; Personal history of colonic polyps Z86.010 and Colon polyps K63.5 ASSESSMENTS Encounter Date Diagnosis Assessment Notes Treatment Notes Treatment Clinical Notes 01/27/2024 Encounter for screening colonoscopy (ICD-10 - Z12.11) 01/27/2024 Personal history of colonic polyps (ICD-10 - Z86.010) 01/27/2024 Colon polyps (ICD-10 - K63.5) PLAN OF TREATMENT No Information
== END 2024-10-27 16:37 | disposition home or self-care (01) ==
PROVIDERS: PCP Nurse Practitioner Family; Visit Provider Internal Medicine
DX: M26.19 Other specified anomalies of jaw-cranial base relationship (principal); G47.33 Obstructive sleep apnea (adult) (pediatric); Z96.82 Presence of neurostimulator
CPT/HCPCS: 99213

== ENCOUNTER → 2024-10-27 15:49 | Outpatient (BNVA) | payer MEDICARE, SELFPAY | PROVIDERS: PCP Nurse Practitioner Family; Visit Provider Internal Medicine | DX: G47.33 Obstructive sleep apnea (adult) (pediatric) (principal); M26.19 Other specified anomalies of jaw-cranial base relationship; Z96.82 Presence of neurostimulator | CPT/HCPCS: 99212 ==

== ENCOUNTER 2024-12-28 06:20 | Outpatient (REF) | payer MEDICARE, SELFPAY ==
--- OUTSIDE RECORDS SUMMARY | 2024-12-28 06:23 | XMS_ITS ---
Author Organization [facility] Address [address] [place] [address] Care Team Providers Care Hostess Name Role Phone Satya Song Primary Care Provider Unav ailable Herson Cisse [phone] REASON FOR VISIT 02/20/24 appt Encounters Encounter Location Date [facility] [address] [address] 12/26/2023 Herson Cisse Plan Of Treatment No Information Progress Notes * Dimitri CHOPRADOB: 5 (68 yo M)Acc No.[id number]:12/26/2023 Patient:?Dimitri Chopra :1955???Age:68 Y???Sex:Male Address:[address] [place] [address] * true * Date:? Generated for Printi lisa/Misbah/eTransmitting on:?12/28/2024 06:23 AM EDT
--- OUTSIDE RECORDS SUMMARY | 2024-12-28 06:23 | XMS_ITS ---
Author Organization [facility] Address [address] [place] [address] Care Team Providers Care Paper Handler Name Role Phone PAMELA HUGGINS Primary Care Provider Bryn Kathleen Jr REASON FOR VISIT screening, hx polyps Encounters Encounter Location Date Provider Diagnosis [facility] Outpatient [address] [place], [place] [id number] 11/11/2023 Bryn Thomas Jr Plan Of Treatment No Information Progress Notes * DARREN LEVINDOB: 5 (69 yo M)Acc No.[id number]:11/11/2023 COLON WITH MAC Patient:?DARREN LEVIN Provider:?Bryn Thomas MD :1955???Age:68 Y???Sex:Male Israel e:11/11/2023 Address:[address] [place] [address] [facility] Pcp:PAMELA HUGGINS Subjective: * Chief Complaints: * ???1. Screening, hx polyps. * Medical History:? Objective: * Vitals:? Assessment: Plan: * Treatment: * * The named appointment provid er may or may not be the originator of this progress note, and it is not deemed complete until electronically signed by the appointment provider. Sign off status: Pending * Provider:?Bryn Thomas MD Date:?0 11/11/2023 Generated for Primoi lisa/Fabernieg/eTransmitting on:?12/28/2024 06:23 AM EDT
--- OUTSIDE RECORDS SUMMARY | 2024-12-28 06:23 | XMS_ITS | Patient Health Record ---
Author Organization [facility] Address [address] [facility] [place] [address] Care Team Providers Care Buggy Operator Name Role Phone Satya Song Primary Care Provider Unav Herson Matthews Unavailable [phone] Reason For Referral No Information Medications Medication [...] Status Risk Notes Problem Acquired hallux rigidus (4635728) Hallux rigidus, left foot (M20.22) Active confirmed Problem Acquired hammer toe of right foot (7531919747834 105) Other hammer toe(s) (acquired), right foot (M20.41) Active confirmed Problem Acquired hammer toe of left foot (3537970003818 103) Other hammer toe(s) (acquired), left foot (M20.42) Active confirmed Problem Acquired hallux rigidus (3259517) Hallux rigidus, right foot (M20.21) Active confirmed Plan Of Treatment Pending Test Test Name Order Date X ray : Foot, left 2V 01/24/2017 X ray : Foot, right 2V 01/24/2017 Insurance Providers Payer Name Payer Address Payer Phone Subscriber Number Group Number Insured Name Patient Relationship to Insured Coverage Start Date Coverage End Date Medicare National [employer] [address] [place] [address] [id number] Dimitri Chopra Self - patient is the insured Aet [address] [place] [address] [id number] Dimitri Chopra Self - patient is the insured Medical (General) History Medical History History ICD Code Anxiety Chicken pox Depression High blood pressure Measles Mumps Arthritis Back,Hip,and Knee pain Neck pain covid-19 Depression Gout Heart disease High blood pressure Measles Mumps Chicken pox Bradycardia, controlled Surgical History Surgery Date(Month/Year) carpal tunnel surgery 2021
--- OUTSIDE RECORDS SUMMARY | 2024-12-28 06:23 | XMS_ITS | Patient Health Record ---
Author Organization [facility] Address [address] [place] [address] Care Team Providers Care Inspector Brake Lining Name Role Phone PAMELA POLANCO Primary Care Provider Bryn Kathleen Jr Allergies No Known Allergies Results Component Value Reference Range Notes Pathology Reviewed date:01/29/2024 11:18:18 AM Interpretation: Performing Lab:[facility], [address] [place] [phone] Notes/Report: Name: Darren Chopra Age/Sex: 68/M : 1955 Unit#: [id number] Attend Dr: Bryn Thomas MD Re01/27/24 Status : [facility] Disch: SPEC : [id number] RECD : 01/27/24 STATUS: SHIRA SALAS NUM: [id number] MAYANK: 01/27/24 [facility] DR: Bryn Thomas MD ENTERED: 01/27/24 37 SP TYPE: Surgical OTHR DR: Pamela Polanco [facility] ORDERED: HE Stain/3, Gross Micro L4 Diagnosis Colon, cecal polyp: Tubular adenoma; negative for high-grade dysplasia carcinoma. Clinical History Pre-Op Dx: Screening Post-Op Dx: Colon polyp Microscopic Description Microscopic sections reviewed. Material Received Polyp cecum Gross Description Received in formalin labeled ?polyp cecum? are 2 downs-pink papular tissue fragments each measuring 0.3 cm, yarbrough bmitted in toto in a cassette labeled A. CEDS Copies To: Bryn Thomas MD [address] [place] [address] [address] [place] [address] Pamela Polanco [address] [place] [address] Signed (si gnature on file) Armida Landeros 01/28/24 1211 END OF REPORT Reason For Referral No Information Medications Medication [...] 1 tablet Orally Once a day Active Immunizations Vaccine Route Administration Date Status Comme nts Influenza Unknown 07/18/2021 Administered Influenza Unknown 09/29/2023 Administered Social History Alcohol Screen Question Answer Notes Did you [...] Monthly (2 points) Points 5 Interpretation Positive Problems Problem Type SNOMED Code ICD Code Onset Dates Problem Status W/U Status Risk Notes Problem 426668118 Colon cancer screening (Z12.11) Active confirmed Problem 882036581 Personal history of colonic polyps (Z86.010) Active confirmed Problem 55610997 Encounter for other preprocedural examination (Z01.818) Active confirmed Encounters Encounter Location Date Provider Diagnosis [facility] Outpatient [address] [place] [id number] 01/27/2024 Bryn Thomas Jr Encounter for screening colonoscopy Z12.11 ; Personal history of colonic polyps Z86.010 and Colon polyps K63.5 [facility] [address] [place] [address] 01/29/2024 Bryn Thomas Jr Assessments Encounter Date Diagnosis (ICD Code) Assessment Notes Treatment Notes Treatment Clinical Notes Section Notes 01/27/2024 Encounter for screening colonoscopy (ICD-10 - Z12.11) 01/27/2024 Personal history of colonic polyps (ICD-10 - Z86.010) 01/27/2024 Colon polyps (ICD-10 - K63.5) Plan Of Treatment Future Test Test Name Order Date COLONOSCOPY 02/28/2016 COLONOSCOPY 12/24/2021 COLONOSCOPY 10/08/2023 Insurance Providers Payer Name Payer Address Payer Phone Subscriber Number Group Number Insured Name Patient Relationship to Insured Coverage Start Date Coverage End Date [facility] [address] FRANKO GRAVES [id number] DARREN CHOPRA Self - patient is the insured Medical (General) History Medical History History ICD Code Hypertension Gout Depression Bradycardia, negative stress test and ca rdiac monitor Colonoscopy 06/11/16, tubular adenoma x1, five-year followup Thrombocytopenia Disc disease GANESH Surgical History Surgery Date(Month/Year) left carpal tunnel surgery 2022
--- OUTSIDE RECORDS SUMMARY | 2024-12-28 06:24 | XMS_ITS ---
Author Organization [facility] Address [address] [place] [address] Care Team Providers Care Disc Jockey Name Role Phone PAEMLA HUGGINS Primary Care Provider Bryn Kathleen Jr REASON FOR VISIT pathology Encounters Encounter Location Date Provider Diagnosis [facility] [address] [place] [address] 01/29/2024 Bryn Thomas Jr Plan Of Treatment No Information Progress Notes * DARREN LEVINDOB: 5 (68 yo M)Acc No.[id number]:01/29/2024 Patient:?DARREN LEVIN :1955???Age:68 Y???Sex:Male Address: [address] [place], [address] * true * Date:? Generated for Clemente gonzalez/Misbah/eTransmitting on:?12/28/2024 06:23 AM EDT
--- OUTSIDE RECORDS SUMMARY | 2024-12-28 06:24 | XMS_ITS | Clinical Summary ---
Author Organization [address] [place] [address] [place] [address] Phone Care Team Providers Care Centrifugal Drier Operator Name Role Phone Satya Polanco NP Primary Care Provider + [phone] Allergies No known active allergies Medications allopurinoL (ZYLOPRIM) 100 mg tablet Take 100 mg by mouth daily. Active lisinopriL (PRINIVIL,ZESTRI L) 5 mg tablet Take [...] of sedation effects. Cardiovascular function study, abnormal 08/24/20 22 Encounters Date Type Department Care Team Description 11/17/2024 7:40 AM EST Office Visit [facility] [address] [facility] [address] [place] [address] Juliette Bill NP Bradycardia (Primary Dx); BARRAZA (dyspnea on exertion) from Last 3 Months Surgical History Surgery Date Site/Laterality Comments COLONOSCOPY [...] Recorded Sex Assigned at Not on file Legal Sex Male 10:54 PM EST Gender Identity Not on file Sexual Orientation Not on file Obstetrics History Last Filed Vital Signs Vital Sign Reading Time Taken Comments Blood Pressure 140/80 11/17/2024 7:56 AM EST Pulse 56 11/17/2024 7:56 AM EST Temperature - - Respiratory Rate - - Oxygen Saturation 99% 11/17/2024 7:56 AM EST Inhaled Oxygen Concentration - - Weight 74.8 kg (165 lb) 11/17/2024 7:56 AM EST Height 167.6 cm (5' 6 ) 11/17/2024 7:56 AM EST Body Mass Index 26.63 11/17/2024 7:56 AM EST Plan of Treatment Upcoming Encounters Date Type Department Care Team (Late st Contact Info) Description 05/17/2025 8:00 AM EDT Ancillary Procedure [facility] [address] [facility] [address] [place] [address] Health Maintenance Due Date Last Done Comments DTaP,Tdap,and Td Vaccines (1 - Tdap) 1974 Pneumococcal Vaccine: 50+ Ye ars (1 of 1 - PCV) 2005 Zoster Vaccines (1 of 2) 2005 Cholesterol Screening (Lipid Panel) 09/08/2022 Colorectal Cancer Screening: Colonoscopy 09/08/2022 Depression Screening 09/08/2022 Falls Risk Assessment 09/08/2022 Hepatitis C Screening 09/08/2022 Medicare Annual Wellness Visit 09/08/2022 Social Influencers of Health Screening 09/08/2022 [...] patient's age to complete this topic Meningococcal B Vacine Aged Out No lo nger eligible based on patient's age to complete this topic RSV Immunization Patients Un lulu 20 months Aged Out No longer eligible b ased on patient's age to complete this topic Varicella Vaccines Aged Out No longer eligible based on patient's age to complete this topic Procedures Procedure Name Priority Date/Time Associated Diagnosis Comments ECG 12-LEAD Routine 11/17/2024 8:39 AM EST Bradycardia from Last 3 Months Results * ECG 12 lead (11/17/2024 8:39 AM EST) Ventricular Rate ECG 58 BPM GEMUSE Atrial Rate 58 BPM GEMUSE P-R Interval 158 ms GEMUSE QRS Duration 102 ms GEMUSE Q-T Interval 460 ms GEMUSE QTc 452 ms GEMUSE P Wave Deland 35 degrees GEMUSE R Deland 60 degrees GEMUSE T Deland 55 degrees GEMUSE ECG Interpretation Sinus bradycardia When compared with ECG of 05-JUN-2023 09:17, No significant change was found Confirmed by JUNE BETANCOURT ([id number]) on 11/17/2024 8:42:13 PM GEMUSE 11/17/2024 8:01 AM EST 11/17/2024 8:42 PM EST us Juliette Bill STRATEGIC DEVELOPMENT MANAGER ECG ORDERABLES Edited Resul t - Final GEMUSE from Last 3 Months Insurance [employer] MED[employer]AGE Care Teams Centrifugal Drier Operator Relationship Specialty Start Date End Date Satya Polanco NP [address] [place], [place] PCP - General 04/03/22
--- OUTSIDE RECORDS SUMMARY | 2024-12-28 06:24 | XMS_ITS | Clinical Summary ---
Author Organization [facility] Address [address] [place] [address] Care Team Providers Care Hand Tool Lapper Name Role Phone CollinSatya Ryan Primary Care Provider Allergies No known active allergies Medications allopurinoL (ZYLOPRIM) 100 mg tablet Active ibuprofen (MOTRIN) 600 mg tablet PLEASE [...] mg by mouth once a day. Active Encounters Date Type Department Care Team Description 11/03/2024 Telephone [facility] [address] [place] [address] Van Pastor MD Numbness 10/20/2024 2:51 PM EST - 10/20/2024 11:59 PM EST Hospital Encounter [facility] XRay [address] [place] [address] Van Pastor MD Pain Discharge Disposition: Home or Self Care () 10/20/2024 2:51 PM EST - 10/20/2024 11:59 PM EST Hospital Encounter [facility] [address] [place] [address] Van Pasotr MD Cervical spondylosis (Primary Dx) Discharge Disposition: Home or Self Care (01) from Last 3 Months Social History Tobacco [...] Info) Description 12/29/2024 11:00 AM EDT Follow-Up [facility] B [address] [place] [address] Van Pastor MD [address] [place] [address] [place] [address] Health Maintenance Due Date Last Done Comments Cologuard 1955 Colon Cancer Screening 1955 Colonoscopy 1955 FOBT / Fit Test 1955 Hepatitis C Screening 1955 Sigmoidoscopy 1955 Zoster Vaccines (2 of 3) 11/05/2015 09/10/2015 Pneumococcal Vaccine: 50+ Years (2 of 2 - PCV) 07/14/2017 07/14/2016 COVID-19 Vaccine ( season) 2024 09/19/2021, 12/26/2020, 11/28/2020 Influenza Vaccine (#1) 2024 2, 07/14/2019, 06/22/2018, Additional history exists Alcohol/Substance Use [...] complete this topic Procedures * Due to [place] state law, this organization might not be sharing negative HIV tests. Procedure Name Priority Date/Time Associated Diagnosis Comments FL C-ARM INJECTION NON-REPORTABLE Routine 10/20/2024 3:55 PM EST Pain FL DSTR NROLYTC AGNT PARVERTEB FCT ADDL CRVCL/THORA Routine 10/20/2024 3:00 PM EST Cervical spondylosis [place] DSTR NROLYTC AGNT PARVERTEB FCT SNGL CRVCL/THORA Routine 10/20/2024 3:00 PM EST Cervical spondylosis from Last 3 Months Results * Due to [place] [employer] law, this organization might not be sharing negative HIV tests. * FL C-Arm Injection Spine NONREPORTABLE (10/20/2024 3:55 PM EST) Narrative IMAGING - 10/20/2024 4:22 PM EST This procedure does not contain a result. Please see the surgeon's note for official report. us Van Pastor MD IMG FLUOROSCOPY PROCEDURES Fi nal Result IMAGING * [place] DSTR NROLYTC AGNT PARVERTEB FCT SNGL CRVCL/THORA, [place] DSTR NROLYTC AGNT PARVERTEB FCT ADDL CRVCL/THORA [...] Patient's understanding of procedure matches consent: Yes [place] Protocol: ? Procedure consent matches procedure scheduled: [...] outpatient to the ambulatory injection suite at [facility]. ? Vital signs were monitored before [...] Result from Last 3 Months Insurance AETNA [facility] Care Teams Hand Tool Lapper Relationship Specialty Start Date End Date Satya Polanco [address] [place] [address] PCP - General 03/07/23
--- OUTSIDE RECORDS SUMMARY | 2024-12-28 06:24 | XMS_ITS ---
Author Organization [facility] thaddeus [facility]ley Address [address] [place] [address] Care Team Providers Care Blood Bank Laboratory Professional Name Role Phone Satya Song Primary Care Provider Unav Herson Matthews Unavailable [phone] Allergies No Known Allergies Medications Medication SIG [...] 02/20/2024 Encounters Encounter Location Date Provider Diagnosis [facility] [address] [address] 02/20/2024 Herson Cisse Plan Of Treatment No Information Progress Notes * Dimitri CHOPRADOB: 5 (69 yo M)Acc No.[id number]:02/20/2024 Progress Notes Patient:?Dimitri CHOPRA Provider:?Herson Cisse DPM :1955???Age:68 Y???Sex:Male Israel e:02/20/2024 Address:[address] [place] [address] , [place] [address] Pcp:ANNE-MARIE Earl Subjective: * Chief Complaints: * [...] DPM Date:? 024 Generated for Clemente gonzalez/Misbah/Abdoulaye on:?12/28/2024 06:24 AM EDT
--- OUTSIDE RECORDS SUMMARY | 2024-12-28 06:24 | XMS_ITS | Referral Summary ---
Author Organization [facility] Address [address] [place] [address] Care Team Providers Care Signals Intelligence Analysis Manager Name Role Phone Satya Polanco Primary Care Provider Encounters Date Type Department Care Team Description 11/03/2024 Telephone [facility] [address] [place] [address] Van Pastor MD Numbness 10/20/2024 2:51 PM EST - 10/20/2024 11:59 PM EST Hospital Encounter [facility] XRay [address] [place] [address] Van Pastor MD Pain Discharge Disposition: Home or Self Care () 10/20/2024 2:51 PM EST - 10/20/2024 11:59 PM EST Hospital Encounter [facility] [address] [place] [address] Van Pastor MD Cervical spondylosis (Primary Dx) Discharge Disposition: Home or Self Care () from Last 3 Months Allergies No known [...] mg by mouth once a day. Active Social History Tobacco Use Types Packs/Day Years [...] Info) Description 12/29/2024 11:00 AM EDT Follow-Up [facility] B [address] [place], [place] [phone] Van Pastor MD [address] [place] [address] [place] [address] Procedures * Due to [place] state law, this organization might not be sharing negative HIV tests. Procedure Name Priority Date/Time Associated Diagnosis Comments FL C-ARM INJECTION NON-REPORTABLE Routine 10/20/2024 3:55 PM EST Pain [place] DSTR NROLYTC AGNT PARVERTEB FCT ADDL CRVCL/THORA Routine 10/20/2024 3:00 PM EST Cervical spondylosis [place] DSTR NROLYTC AGNT PARVERTEB FCT SNGL CRVCL/THORA Routine 10/20/2024 3:00 PM EST Cervical spondylosis from Last 3 Months Results * Due to [place] state law, this organization might not be sharing negative HIV tests. * FL C-Arm Injection Spine NONREPORTABLE (10/20/2024 3:55 PM EST) Narrative IMAGING - 10/20/2024 4:22 PM EST This procedure does not contain a result. Please see the surgeon's note for official report. us Van Pastor MD IMG FLUOROSCOPY PROCEDURES Fi nal Result IMAGING * [place] DSTR NROLYTC AGNT PARVERTEB FCT SNGL CRVCL/THORA, [place] DSTR NROLYTC AGNT PARVERTEB FCT ADDL CRVCL/THORA (10/20/2024 3:00 PM EST) Narrative Van Pastor MD - 10/20/2024 3:00 PM EST Van [...] Patient's understanding of procedure matches consent: Yes [place] Protocol: ? Procedure consent matches procedure scheduled: [...] outpatient to the ambulatory injection suite at [facility]. ? Vital signs were monitored before [...] Result from Last 3 Months Insurance [facility] Care Teams Signals Intelligence Analysis Manager Relationship Specialty Start Date End Date Satya Polanco [address] [place], [place] [phone] PCP - General 03/07/23
--- OUTSIDE RECORDS SUMMARY | 2024-12-28 06:24 | XMS_ITS ---
Author Organization [facility] Address [address] [place] [address] Care Team Providers Care Digital Data Analyst Name Role Phone PAMELA HUGGINS Primary Care Provider Bryn Kathleen Jr REASON FOR VISIT screening, hx polyps Encounters Encounter Location Date Provider Diagnosis [facility] Outpatient [address] [place] [phone] 01/27/2024 Bryn Thomas Jr Encounter for screening [...] * DARREN LEVINDOB: 5 (69 yo M)Acc No.[id number]:01/27/2024 COLON WITH MAC Patient:?DARREN LEVIN Provider:?Bryn Thomas MD :1955???Age:68 Y???Sex:Male Israel e:01/27/2024 [facility] Pcp:PAMELA HUGGINS Subjective: * Chief Complaints: * ???1. Screening, hx polyps. * Medical History:? Objective: * Vitals:? Assessment: * Assessment: 1.?Encounter for screening c olonoscopy - Z12.11 (Primary)???2.?Personal history of colonic polyps - Z86.010???3.?Colon polyps - K63.5??? Plan: * Treatment: * Procedure Codes:?35752 COLON OSCOPY AND BIOPSY, 0529F INTRVL 3+YRS PTS CLNSCP DOCD * * The named appointment provid er may or may not be the originator of this progress note, and it is not deemed complete until electronically signed by the appointment provider. Sign off status: Pending * Provider:?Bryn Thomas MD Date:?0 01/27/2024 Generated for Clemente gonzalez/Misbah/Abdoulaye on:?12/28/2024 06:24 AM EDT
[2024-12-28 06:36] LABS: MANUAL DIFF FLAG NO
[2024-12-28 07:16] LABS: Basophils Percent Auto 0.6 % (0-2); Eosinophils Absolute Auto 0.1 X10*3/uL (0.0-0.4); Eosinophils Percent Auto 2.4 % (0-4); Hematocrit 40.3 % (42.0-52.0); Hemoglobin 14.3 g/dl (14.0-18.0); Imm Gran Abs Auto 0.02 X10*3/uL (0.00-0.03); Imm Gran Pct Auto 0.4 % (0.0-0.4); Lymphocytes Absolute Auto 1.6 X10*3/uL (1.2-4.9); Lymphocytes Percent Auto 30.2 % (20-40); Mean Corpuscular HGB Conc 35.5 g/dl (31.0-36.0); Mean Corpuscular Volume 87.2 fL (80.0-98.0); Mean Platelet Volume 9.4 fL (9.4-12.4); Monocytes Absolute Auto 0.6 X10*3/uL (0.1-1.2); Monocytes Percent Auto 10.5 % (2-11); Neutrophils Percent Auto 55.9 % (45-73); Platelet Count 147 X10*3/uL (160-400); Red Blood Count 4.62 X10*6/uL (4.60-5.80); Red Cell Distribution Width 13.2 % (11.0-16.0); White Blood Count 5.3 X10*3/uL (4.8-10.8)
[2024-12-28 07:39] LABS: Alanine Aminotransferase 42 U/L (0-40); Albumin Level 4.2 g/dL (3.5-5.0); Alkaline Phosphatase 59 U/L (39-117); Anion Gap 9 (12-20); Aspartate Amino Transferase 36 U/L (5-37); Bilirubin Total 0.7 mg/dL (0.0-1.0); Blood Urea Nitrogen 20 mg/dL (9-16); Calcium 8.9 mg/dL (8.4-10.2); Carbon Dioxide 25 mmol/L (22-29); Chloride 111 mmol/L (96-108); Cholesterol 126 mg/dL (<200); Estimated Glomerular Filt Rate > 60; Glucose Random 92 mg/dL (60-115); HDL Cholesterol 40 mg/dL (>40); LDL Cholesterol Calculated 73 mg/dL (<100); Potassium 4.7 mmol/L (3.3-5.1); Sodium 140 mmol/L (135-145); Total Protein 6.6 g/dL (6.5-8.0); Triglycerides 65 mg/dL (<150)
== END 2024-12-28 06:21 | disposition home or self-care (01) ==
LOC: HO.LAB 06:20
PROVIDERS: PCP Nurse Practitioner Family; Visit Provider Nurse Practitioner Family
DX: I10 Essential (primary) hypertension (principal); E78.5 Hyperlipidemia, unspecified; F10.29 Alcohol dependence with unspecified alcohol-induced disorder
CPT/HCPCS: 36415; 80053; 80061; 85025

== ENCOUNTER → 2025-01-03 08:47 | Outpatient (REF) | payer MEDICARE, SELFPAY ==
--- OUTSIDE RECORDS SUMMARY | 2025-01-03 09:30 | XMS_ITS | Patient Health Record ---
Author Organization [facility] Address [address] [place] [address] Care Team Providers Care Reports Analyst Name Role Phone PAMELA POLANCO Primary Care Provider Bryn Kathleen Jr [phone] Allergies No Known Allergies Results Component Value Reference Range Notes Pathology Reviewed date:01/29/2024 11:18:18 AM Interpretation: Performing Lab:[facility], [address] [place] [phone] Notes/Report: Name: Darren Chopra Age/Sex: 68/M : 1955 Unit#: [id number] Attend Dr: Bryn Thomas MD Re01/27/24 Status : [facility] Location: [facility] Disch: SPEC : [id number] RECD : 01/27/24 STATUS: SHIRA SALAS NUM: [id number] MAYANK: 01/27/24 [facility] DR: Bryn Thomas MD ENTERED: 01/27/24 37 SP TYPE: Surgical OTHR DR: Pamela Polanco [facility] ORDERED: HE Stain/3, Gross Micro [...] A. CEDS Copies To: Bryn Thomas MD [address] [place] [address] [address] [place] [address] Pamela Polanco [address] [place] [address] Signed (si gnature on file) Armida Landeros [...] Problem Status W/U Status Risk Notes Problem 938849964 Colon cancer screening (Z12.11) Active confirmed Problem 179074649 Personal history of colonic polyps (Z86.010) Active confirmed Problem 06982452 Encounter for other preprocedural examination (Z01.818) Active confirmed Encounters Encounter Location Date Provider Diagnosis [facility] Outpatient [address] [place] [phone] 01/27/2024 Bryn Thomas Jr Encounter for screening colonoscopy Z12.11 ; Personal history of colonic polyps Z86.010 and Colon polyps K63.5 [facility] [address] [place] [address] 01/29/2024 Bryn Thomas Jr Assessments Encounter Date [...] Insured Coverage Start Date Coverage End Date [facility] [address] FRANKO GRAVES [id number] DARREN CHOPRA Self - patient is the insured Medical (General) History Medical History History ICD Code Hypertension Gout Depression Bradycardia, negative stress test and ca rdiac monitor Colonoscopy 06/11/16, tubular adenoma x1, five-year followup Thrombocytopenia Disc disease GANESH Surgical History Surgery Date(Month/Year) left carpal tunnel surgery 2022
--- OUTSIDE RECORDS SUMMARY | 2025-01-03 09:30 | XMS_ITS ---
Author Organization [facility] Address [address] [place] [address] Care Team Providers Care Reservoir Caretaker Name Role Phone Satya Song Primary Care Provider Unav ailable Herson Cisse [phone] REASON FOR VISIT 02/20/24 appt Encounters Encounter Location Date [facility] [address] [address] 12/26/2023 Herson Cisse Plan Of Treatment No Information Progress Notes * Dimitri CHOPRADOB: 5 (68 yo M)Acc No.[id number]:12/26/2023 Patient:?Dimitri Chopra :1955???Age:68 Y???Sex:Male Address:[address] [place] [address] * true * Date:? Generated for Printi lisa/Misbah/eTransmitting on:?01/03/2025 09:30 AM EDT
--- OUTSIDE RECORDS SUMMARY | 2025-01-03 09:30 | XMS_ITS ---
Author Organization [facility] Address [address] [place] [address] Care Team Providers Care Pallet Stone Positioner Name Role Phone PAMELA HUGGINS Primary Care Provider Bryn Kathleen Jr REASON FOR VISIT screening, hx polyps Encounters Encounter Location Date Provider Diagnosis [facility] [place] Out[place] [address] [place], [place] [id number] 11/11/2023 Bryn Thomas Jr Plan Of Treatment No Information Progress Notes * DARREN LEVINDOB: 5 (69 yo M)Acc No.[id number]:11/11/2023 COLON WITH MAC Patient:?DARREN LEVIN Provider:?Bryn Thomas MD :1955???Age:68 Y???Sex:Male Israel e:11/11/2023 Address:[address] [place] [address] [facility] Pcp:PAMELA HUGGINS Subjective: * Chief Complaints: * [...] Thomas MD Date:?0 11/11/2023 Generated for Primoi ng/Fabernieg/eTransmitting on:?01/03/2025 09:29 AM EDT
--- OUTSIDE RECORDS SUMMARY | 2025-01-03 09:30 | XMS_ITS | Patient Health Record ---
Author Organization [facility] Address [address] [place] [address] Care Team Providers Care Cloth Laminating Supervisor Name Role Phone Satya Song Primary Care Provider Unav Herson Matthews Unavailable [phone] Reason For Referral No Information Medications Medication [...] Status Risk Notes Problem Acquired hallux rigidus (6559333) Hallux rigidus, left foot (M20.22) Active confirmed Problem Acquired hammer toe of right foot (3962710023448 105) Other hammer toe(s) (acquired), right foot (M20.41) Active confirmed Problem Acquired hammer toe of left foot (7335267083531 103) Other hammer toe(s) (acquired), left foot (M20.42) Active confirmed Problem Acquired hallux rigidus (9780079) Hallux rigidus, right foot (M20.21) Active confirmed [...] Inc [address] [place] [address] [id number] Dimitri Chopra Self - patient is the insured Aet [address] [place] [address] [id number] Dimitri Chopra Self - patient is the insured Medical (General) History Medical History History ICD Code Anxiety Chicken pox Depression High blood pressure Measles Mumps Arthritis Back,Hip,and Knee pain Neck pain covid-19 Depression Gout Heart disease High blood pressure Measles Mumps Chicken pox Bradycardia, controlled Surgical History Surgery Date(Month/Year) carpal tunnel surgery 2021
--- OUTSIDE RECORDS SUMMARY | 2025-01-03 09:31 | XMS_ITS ---
Author Organization [facility] thaddeus [place] Address [address] [place] [address] Care Team Providers Care Pond Scaler Name Role Phone Satya Song Primary Care Provider Unav Herson Matthews Unavailable [phone] Allergies No Known Allergies Medications Medication SIG [...] 02/20/2024 Encounters Encounter Location Date Provider Diagnosis [facility] [address] [address] 02/20/2024 Herson Cisse Plan Of Treatment No Information Progress Notes * Dimitri CHOPRADOB: 5 (69 yo M)Acc No.[id number]:02/20/2024 Progress Notes Patient:?Dimitri CHOPRA Provider:?Herson Cisse DPM :1955???Age:68 Y???Sex:Male Israel e:02/20/2024 Address:[address] [place] [address] , [place] [address] Pcp:ANNE-MARIE Earl Subjective: * Chief Complaints: * [...] DPM Date:? 024 Generated for Clemente gonzalez/Misbah/Abdoulaye on:?01/03/2025 09:30 AM EDT
--- OUTSIDE RECORDS SUMMARY | 2025-01-03 09:31 | XMS_ITS | Clinical Summary ---
Author Organization [address] [place] [address] [place] [address] Phone Care Team Providers Care Senior Tableau Developer Name Role Phone Satya Polanco NP Primary Care Provider + [phone] Allergies No known active allergies Medications allopurinoL [...] Description 11/17/2024 7:40 AM EST Office Visit [facility] [address] [facility] [address] [place] [address] Juliette Bill NP Bradycardia (Primary [...] Description 05/17/2025 8:00 AM EDT Ancillary Procedure [facility] [address] [facility] [address] [place] [address] Health Maintenance Due Date Last [...] Vaccine (2023-2 5 season) 2024 Influenza Vaccine (Season Ended) 2025 RSV Immunization Adult Patie nts (1 - 1-dose 75+ series) 2030 HIB [...] GEMUSE QTc 452 ms GEMUSE P Wave [place] 35 degrees GEMUSE R [place] 60 degrees GEMUSE T [place] 55 degrees GEMUSE ECG Interpretation Sinus bradycardia When compared with ECG of 05-JUN-2023 09:17, No significant change was found Confirmed by JUNE BETANCOURT ([id number]) on 11/17/2024 8:42:13 PM GEMUSE 11/17/2024 8:01 AM EST 11/17/2024 8:42 PM EST us Juliette Bill ROLLER LEVELER OPERATOR ECG ORDERABLES Edited Resul t - Final GEMUSE from Last 3 Months Insurance [employer] Care Teams Senior Tableau Developer Relationship Specialty Start Date End Date Satya Polanco NP [address] [place] PCP - General 04/03/22
--- OUTSIDE RECORDS SUMMARY | 2025-01-03 09:31 | XMS_ITS ---
Author Organization [facility] Address [address] [place] [address] Care Team Providers Care Business Teacher Name Role Phone PAMELA HUGGINS Primary Care Provider Bryn Kathleen Jr REASON FOR VISIT pathology Encounters Encounter Location Date Provider Diagnosis [facility] [address] [place] [address] 01/29/2024 Bryn Thomas Jr Plan Of Treatment No Information Progress Notes * DARREN LEVINDOB: 5 (68 yo M)Acc No.[id number]:01/29/2024 Patient:?DARREN LEVIN :1955???Age:68 Y???Sex:Male Address: [address] [place], [address] * true * Date:? Generated for Clemente gonzalez/Misbah/eTransmitting on:?01/03/2025 09:30 AM EDT
--- OUTSIDE RECORDS SUMMARY | 2025-01-03 09:31 | XMS_ITS ---
Author Organization [facility] Address [address] [place] [address] Care Team Providers Care Senior Water/Wastewater Engineer Name Role Phone PAMELA HUGGINS Primary Care Provider Bryn Kathleen Jr REASON FOR VISIT screening, hx polyps Encounters Encounter Location Date Provider Diagnosis [facility] [place] Outpatient [address] [place] [phone] 01/27/2024 Bryn Thmoas Jr Encounter for screening colonoscopy Z12.11 ; [...] * DARREN LEVINDOB: 5 (69 yo M)Acc No.[id number]:01/27/2024 COLON WITH MAC Patient:?DARREN LEVIN Provider:?Bryn Thomas MD :1955???Age:68 Y???Sex:Male Israel e:01/27/2024 [facility] [address] [facility] Pcp:PAMELA HUGGINS Subjective: * Chief Complaints: * ???1. Screening, hx polyps. * Medical History:? Objective: * Vitals:? Assessment: * Assessment: 1.?Encounter for screening c olonoscopy - Z12.11 (Primary)???2.?Personal history of colonic polyps - Z86.010???3.?Colon polyps - K63.5??? Plan: * Treatment: * Procedure Codes:?35702 COLON OSCOPY AND BIOPSY, 0529F INTRVL 3+YRS PTS CLNSCP DOCD * * The named appointment provid er may or may not be the originator of this progress note, and it is not deemed complete until electronically signed by the appointment provider. Sign off status: Pending * Provider:?Bryn Thomas MD Date:?0 01/27/2024 Generated for Clemente gonzalez/Misbah/Rosemarieitting on:?01/03/2025 09:30 AM EDT
--- OUTSIDE RECORDS SUMMARY | 2025-01-03 09:31 | XMS_ITS | Encounter Summary ---
Author Organization [facility] Address [address] [place] [address] Care Team Providers Care Recreational Resort Manager Name Role Phone CollinSatya Ryan Primary Care Provider [phone] Reason for Visit * Reason Comments Pain Follow-up Encounter Details Date Type Department Care Team (Late st Contact Info) Description 12/29/2024 11:00 AM EDT Follow-Up [facility] [address] [place], [place] [id number] Van Pastor MD [address] [facility] [place] [address] Cervical spondylosis (Primary Dx) Social History Tobacco Use Types Packs/Day Years [...] PM EDT documented as of this encounter Progress Notes * Van Pastor MD - 12/29/2024 11:15 AM EDT Images from the original note were not included. Patient Name: Dimitri Chopra date/age: 1108/20/1955/69 y.o. History of Presenting Illness HPI: Dimitri Chopra is a 69 y.o. male. History of Present Illness The patient is a 69-year-old male who presents today for follow-up after ablation of the medial branches of C2 and C3. He is doing really well following the procedure. His pain has significantly improved, with about 70% overall improvement. His range of motion is significantly better. September2024, Cervical Radio Frequency Ablation (RFA) C2-C3 bilaterally, provided 70% relief up to 3month(s). Review of Systems Review of Systems Physical Examination Objective There were no vitals taken for this visit. General: alert and oriented x 3, in no acute distress. Psychiatric: The patient demonstrates good judgement and reason without abnormal affect or behavior during the office visit. PHYSICAL EXAM: Physical Exam Imaging & Diagnostic Studies No results found for this or any previous visit. No results found for this or any previous visit. Results for orders placed during the hospital encounter of 04/15/24 CT Cervical Spine WO Contrast Narrative EXAMINATION: CT of cervical spine without contrast TECHNIQUE: Helical CT scan of the cervical spine was performed without intravenous administration with sagittal and coronal reformats. CLINICAL INFORMATION: 68-year-old male with Neck pain, chronic, degenerative changes on xray To evaluate C1-C2 facet arthropathy M47.812 - I10 - Spondylosis without myelopathy or radiculopathy, cervical region COMPARISON: Cervical spine plain film 04/15/2024 and 04/29/2023; MRI cervical spine 05/30/2023.. FINDINGS: There is straightening of the cervical spine with reversal of the cervical lordosis at C4-5. Vertebral AP alignment is within normal limits. No acute or chronic vertebral compression fracture, loss of height or evidence of traumatic subluxation is seen. The prevertebral and dorsal paraspinal soft tissues are unremarkable. Craniocervical Junction: No cerebellar tonsillar ectopia or Chiari malformation. Advanced atlantoaxial axial degenerative changes. Intact odontoid and atlantooccipital joints. C2-C3: Advanced left facet arthropathy with joint space narrowing and marginal hypertrophic changesof the left articular pillar. No limiting central canal stenosis. Moderate narrowing of the left S0gcglts foramen. C3-C4: Moderate-marked facet arthropathy involving the left C3-4 articular pillar. No limiting central canal stenosis. Mild narrowing of the left C4 neural foramen. C4-C5: Mild facet arthropathy and discogenic degenerative changes without limiting central canal stenosis. Moderate right lateral/intraforaminal discovertebral/uncovertebral hypertrophic changes narrowing the right C5 neural foramen. C5-C6: Mild facet arthropathy and moderate discogenic degenerative changes with disc narrowing and diffuse concentric annulus bulge. Moderate intraforaminal discovertebral/uncovertebral hypertrophic changes, mildly narrowing the C6 neural foramina, right greater than left. C6-C7: Mild facet arthropathy and moderate discogenic degenerative changes with disc narrowing and diffuse concentric annulus bulge. Moderate intraforaminal discovertebral/uncovertebral hypertrophic changes, mildly narrowing the C7 neural foramina, bilaterally. C7-T1: No limiting central canal or C8 foraminal stenosis. No abnormality of the paravertebral soft tissues, lung apices or thoracic inlet. Impression 1. CT CERVICAL SPINE demonstrates mild-moderate multilevel cervical spondylosis, facet arthropathy and discogenic degenerative changes C3-C7 narrowing the neural foramina as detailed above. 2. Advanced atlantoaxial degenerative changes. Marked left C3-4 facet arthropathy. 3. No limiting central canal stenosis or cord compression. If this radiology report contains a blank impression section, it is an incomplete radiology report.Please contact the interpreting radiologist or applicable radiology division as soon as possible toobtain the completed interpretation. Workstation ID: [id number] Up-to-date CT equipment and radiation dose reduction techniques were employed. CTDIvol: 18.8 mGy. DLP: 346 mGy-cm. I have personally reviewed the imaging I showed the imaging to the patient and explained my interpretation. Assessment & Plan Diagnosis Plan 1. Cervical spondylosis Assessment & Plan This is a pleasant 69-year-old male with multilevel degenerative changes in his cervical spine. 1. Post-ablation follow-up. He previously had a cervical epidural steroid injection with some relief and most recently had radiofrequency ablation of the medial branch of C2 and C3 with significant improvement. He is also underthe care of Dr. Waldrop and discussed surgical intervention but is not a candidate at the moment. Overall, he feels much better. His pain is significantly improved, and he is very happy with the results. Physical therapy is recommended. He will follow up if the pain returns. PROCEDURE The patient previously had a cervical epidural steroid injection with some relief and most recentlyhad radiofrequency ablation of the medial branch of C2 and C3 with significant improvement. Plan: I discussed the following plan with the patient after explaining the diagnosis in detail. Physical Therapy: Recommend continued stretching, exercise and home physical therapy. Follow up: with me and prn The patient voiced understanding and appreciated my opinion. Thank you for the privilege of participating in this patient's care, please be in touch with any questions or concerns should they arise. Van Pastor MD Medical Record Review The following portions of the chart were reviewed this encounter and updated as appropriate: documented in this encounter Plan of Treatment Not on file documented as of this encounter Visit Diagnoses Diagnosis Cervical spondylosis- Primary Cervical spondylosis without myelopathy documented in this encounter Care Teams Recreational Resort Manager Relationship Specialty Start Date End Date Satya Polanco [address] [place] [address] PCP - General 03/07/23 documented as of this encounter
--- OUTSIDE RECORDS SUMMARY | 2025-01-03 09:31 | XMS_ITS | Referral Summary ---
Author Organization [facility] Address [address] [place] [address] Care Team Providers Care Dough Braker Name Role Phone Satya Polanco Primary Care Provider [phone]- [phone] Encounters Date Type Department Care Team Description 12/29/2024 11:00 AM EDT Follow-Up [facility] B [address] [place] [address] Van Pastor MD Cervical spondylosis (Primary Dx) 11/03/2024 Telephone [facility] [address] [place] [address] Van Pastor MD Numbness 10/20/2024 2:51 PM EST - 10/20/2024 11:59 PM EST Hospital Encounter [facility] XRay [address] [place] [address] Van Pastor MD Pain Discharge Disposition: Home or Self Care () 10/20/2024 2:51 PM EST - 10/20/2024 11:59 PM EST Hospital Encounter [facility] [address] [place] [address] Van Pastor MD Cervical spondylosis (Primary Dx) Discharge Disposition: Home or Self Care () from Last 3 Months Allergies No known active allergies Medications allopurinoL (ZYLOPRIM) 100 mg tablet Active ibuprofen (MOTRIN) 600 mg tablet PLEASE SEE ATTACHED FOR DETAILED DIRECTIONS Active amLODIPine (NORVASC) 10 mg tablet Take [...] Mass Index - - Plan of Treatment Not on file Procedures * Due to [employer] law, this organization might not be sharing negative HIV tests. Procedure Name Priority Date/Time Associated Diagnosis Comments FL C-ARM INJECTION NON-REPORTABLE Routine 10/20/2024 3:55 PM EST Pain MO DSTR NROLYTC AGNT PARVERTEB FCT ADDL CRVCL/THORA Routine 10/20/2024 3:00 PM EST Cervical spondylosis MO DSTR NROLYTC AGNT PARVERTEB FCT SNGL CRVCL/THORA Routine 10/20/2024 3:00 PM EST Cervical spondylosis from Last 3 Months Results * Due to [employer] law, this organization might not be sharing negative HIV tests. * FL C-Arm Injection Spine NONREPORTABLE (10/20/2024 3:55 PM EST) Narrative IMAGING - 10/20/2024 4:22 PM EST This procedure does not contain a result. Please see the surgeon's note for official report. us Van Pastor MD IMG FLUOROSCOPY PROCEDURES Fi nal Result IMAGING * MO DSTR NROLYTC AGNT PARVERTEB FCT SNGL CRVCL/THORA, MO DSTR NROLYTC AGNT PARVERTEB FCT ADDL CRVCL/THORA [...] Patient's understanding of procedure matches consent: Yes [place] Protocol: ? Procedure consent matches procedure scheduled: [...] outpatient to the ambulatory injection suite at [facility]. ? Vital signs were monitored before [...] Result from Last 3 Months Insurance [facility] Care Teams Dough Braker Relationship Specialty Start Date End Date Satya Polanco [address] [place] [address] PCP - General 03/07/23
--- OUTSIDE RECORDS SUMMARY | 2025-01-03 09:31 | XMS_ITS | Clinical Summary ---
Author Organization [facility] Address [address] [place] [address] Care Team Providers Care Academic Affairs Vice President Name Role Phone JacintoSatya ribeiro Ryan Primary [...] Team Description 12/29/2024 11:00 AM EDT Follow-Up [facility] B [address] [place] [address] Van Pastor MD Cervical spondylosis (Primary Dx) 11/03/2024 Telephone [facility] [address] [place] [address] Van Pastor MD Numbness 10/20/2024 2:51 PM EST - 10/20/2024 11:59 PM EST Hospital Encounter [facility] X[facility] [address] [place] [address] Van Pastor MD Pain Discharge Disposition: Home or Self Care () 10/20/2024 2:51 PM EST - 10/20/2024 11:59 PM EST Hospital Encounter [facility] [address] [place] [address] Van Pastor MD Cervical spondylosis (Primary Dx) Discharge Disposition: Home or Self Care () from Last 3 Months Social History Tobacco [...] Mass Index - - Plan of Treatment Health Maintenance Due Date Last Done Comments Cologuard 1955 Colon Cancer Screening 1955 Colonoscopy 1955 FOBT / Fit Test 1955 Hepatitis C Screening 1955 Sigmoidoscopy 1955 Zoster Vaccines (2 of 3) 11/05/2015 09/10/2015 Pneumococcal Vaccine: 50+ Years (2 of 2 - PCV) 07/14/2017 07/14/2016 COVID-19 Vaccine ( season) 2024 09/19/2021, 12/26/2020, 11/28/2020 Alcohol/Substance Use Screening 09/29/2024 Depression Screening and Follow-Up 09/29/2024 Health Care Proxy Review 09/29/2024 Social Drivers of Health Annual Screening 09/29/2024 Influenza Vaccine (Season Ended) 2025 07/26/2022, 07/14/2019, 06/22/2018, Additional history exists DTaP,Tdap,and Td Vaccines (2 - Td or Tdap) 09/10/2025 09/10/2015 RSV Vaccine (60+ years old and patients) (1 - 1-dose 75+ series) 2030 Hepatitis B Vaccines Aged Out No long er eligible based on patient's age to complete this topic Procedures * Due to [place] [employer] law, this organization might not be sharing negative HIV tests. Procedure Name Priority Date/Time Associated Diagnosis Comments FL C-ARM INJECTION NON-REPORTABLE Routine 10/20/2024 3:55 PM EST Pain [place] DSTR NROLYTC AGNT PARVERTEB FCT ADDL CRVCL/THORA Routine 10/20/2024 3:00 PM EST Cervical spondylosis [place] DSTR NROLYTC AGNT PARVERTEB FCT SNGL CRVCL/THORA Routine 10/20/2024 3:00 PM EST Cervical spondylosis from Last 3 Months Results * Due to [place] [employer] law, this organization might not be sharing negative HIV tests. * FL C-Arm Injection Spine NONREPORTABLE (10/20/2024 3:55 PM EST) Narrative IMAGING - 10/20/2024 4:22 PM EST This procedure does not contain a result. Please see the surgeon's note for official report. us Van Pastor MD IMG FLUOROSCOPY PROCEDURES Fi nal Result IMAGING * [place] DSTR NROLYTC AGNT PARVERTEB FCT SNGL CRVCL/THORA, [place] DSTR NROLYTC AGNT PARVERTEB FCT ADDL CRVCL/THORA [...] Patient's understanding of procedure matches consent: Yes [place] Protocol: ? Procedure consent matches procedure scheduled: [...] outpatient to the ambulatory injection suite at [facility]. ? Vital signs were monitored before [...] Result from Last 3 Months Insurance [employer] Care Teams Academic Affairs Vice President Relationship Specialty Start Date End Date Satya Polanco [address] [place] [address] PCP - General 03/07/23
== END ==
LOC: HO.SL 08:47
PROVIDERS: PCP Nurse Practitioner Family; Visit Provider Internal Medicine
DX: G47.33 Obstructive sleep apnea (adult) (pediatric) (principal); Z96.82 Presence of neurostimulator
CPT/HCPCS: 95806

== ENCOUNTER → 2025-01-03 09:10 | Outpatient (BNV) | payer MEDICARE, SELFPAY | PROVIDERS: PCP Nurse Practitioner Family; Visit Provider Internal Medicine | DX: R06.83 Snoring (principal) | CPT/HCPCS: 95806 ==

== ENCOUNTER 2025-01-27 10:00 | Outpatient (AMB) | payer MEDICARE, SELFPAY ==
[2025-01-27 10:09] VITALS: BP 120/76; PULSE 58; O2SAT 99; BMI 25.2
--- NOTE | 2025-01-27 10:09 | A.OFFPC_ITS ---
Vital Signs 01/27/25 10:09 Height 5 ft 6 in Weight 156 lb BMI 25.2 BP 120/76 Blood Pressure Location Lt brachial Position Sitting Pulse 58 Pulse Source Pulse Oximeter Pulse Oximetry (%) 99 Oxygen Delivery Method Room Air Intake Visit Reasons: 6 months follow up Counter Hand Required: No Accompanied by: Self / Same As Patient Allergies No Known Allergies Allergy (Verified 01/27/25 10:38) Medication List - Last Reconciled 01/27/25 by Satya Polanco [facility] allopurinol 100 mg PO DAILY amlodipine 10 mg PO DAILY atorvastatin 10 mg PO BEDTIME fluoxetine 40 mg PO DAILY 90 days folic acid 1 mg PO DAILY lisinopril 5 mg PO DAILY multivitamin (Multiple Vitamins tablet) 1 tab PO DAILY thiamine HCl (vitamin B1) 100 mg PO DAILY Tobacco use date assessed: 01/27/25 Fall risk assessment: No Falls in past year Last assessed Fall Risk: 01/27/25 Dental Screening Dental Screen Date: 01/27/25 Did you have a dental visit in the last 12 months?: Yes Did you have a dental problem in the last 6 months where you did not have access to dental care?: No Was dental information given to patient?: Patient has dentist HPI 6 months follow up HPI Details Chief Complaint Patient presents for follow-up of dyslipidemia and hypertension. History of Present Illness The patient is a 69-year-old male presenting with dyslipidemia and essential hypertension for follow-up care. His cholesterol levels are reported to be stable under the current treatment regimen. His blood pressure is also stable at present. He has not experienced related symptoms such as chest pain, shortness of breath, headache, blurry vision, dizziness, or edema. The patient has a history of elevated liver enzymes, noted in the recent past, but with no associated symptoms. The patient has been counseled on the importance of dietary management and reducing alcohol consumption to optimize the health outcomes. Stability in his lipid profile and blood pressure readings justifies the continued use of the cu rrent management plan. Future re-evaluation of liver function is planned. Pt does see a yoker machine operator on a regular basis. Does use inspire for GANESH. Social History - Patient adheres to dietary management strategies. - Decreases alcohol intake as advised. Health Maintenance - Monitoring diet for cholesterol manage ment - Alcohol reduction for liver health - Re-evaluation of liver enzymes planned in the near future Review of Systems - Cardiovascular: Denies chest pain, dennis rtness of breath, dizziness - Neurological: Denies headache, blurry vision - Edema: Denies presence of edema Physical Exam General: Cooperative, healthy appearing, comfortable, no acute distress and well developed Orientation: Patient oriented x3 Limitations: No limitations Head: Normal to inspection Ears: Hearing grossly normal bilaterally Nose: Normal external nose present Face and sinus: Normal facial exam Eyes: Appearance normal, both eyes and all related structures Neck: Normal visual inspection and Yes full ROM Respiratory: Normal respiratory effort and able to speak in complete sentences. Clear to auscultation bilaterally Cardiovascular: Regular rate and rhythm. Normal S1 and S2 GI: Normal to inspection. Soft to palpation and nontender Skin: No rashes or lesions noted Neuro: Patient oriented x3 Extremities: Normal to inspection, no edema noted Results - Labs: Elevated liver enzymes noted Plan I will maintain the current management approach for dyslipidemia, given the stability in lipid values, and essential hypertension, as the blood pressure remains controlled. A follow-up for re-evaluation of liver enzymes is appropriate to monitor hepatic function. The patient is advised to continue his dietary monitoring and limit alcohol consumption as part of his long-term health maintenance strategy. Scheduled follow-up in six months. Discussion Notes I discussed with the patient the stability of his cholesterol and blood pressure under the current treatment regimen. We reviewed the implications of the elevated liver enzymes and agreed to re-evaluate these markers to monitor any changes closely. I emphasized the importance of dietary modifications and limiting alcohol intake to support liver health and reduce cardiovascular risk. The patient expressed understanding and agreement with this plan, and we scheduled a follow-up visit in six months to reassess his condition. Patient Instructions - Continue following your dietary plan f or cholesterol management. - Limit alcohol consumption to support [facility]. - Monitor blood pressure regularly and r eport any significant changes. - Schedule and attend the re-evaluation for liver enzymes. - Return for follow-up in six months. [facility] Medical History Retrognathia Bradycardia Anxiety Thrombocytopenia Gout Depression GANESH (obstructive sleep apnea) Essential hypertension Erectile dysfunction Surgical History S/P placement of hypoglossal nerve stimulator History of carpal tunnel surgery of left wrist H/O colonoscopy History of tonsillectomy Family History Father Unknown family medical history Mother Unknown family medical history Social History Housing: House Alcohol intake: current Patient Tobacco Use Status: Never used Tobacco e-Cigarette/Vaping Use: Never Used Second Hand Smoke Exposure: No service: No Current occupational status: retired Cognitive needs: No Hearing needs: No Vision needs: No Questionnaire PHQ-9 Over the last 2 weeks, how often have you been bothered by any of the following problems? 1. Little interest or pleasure in doing things: not at all 2. Feeling down, depressed, or hopeless: not at all 3. Trouble falling or staying asleep, or sleeping too much: not at all 4. Feeling tired or having little energy: not at all 5. Poor appetite or overeating: not at all 6. Feeling bad about yourself - or that you are a failure or have let yourself or your family down: not at all 7. Trouble concentrating on things, such as reading the newspaper or watching television: not at all 8. Moving or speaking so slowly that other people could have noticed. Or the opposite - being so fidgety or restless that you have been moving around a lot more than usual: not at all 9. Thoughts that you would be better off or of hurting yourself in some way: not at all Total score: 0 Depression Screening Interpretation: Negative Depression Screening Done: Yes 28812 - PHQ-9 Billing: Yes Source: Developed by Drs. Dwain Duncan, Valentine Samson, Jas Lees and colleagues, with an educational padmini from [employer]. Thrive Questionnaire Date Thrive assessed: 01/27/25 I am a: Patient What is your living situation today?: I have a steady place to live Within the past 12 months, did the food you bought not last and you didn't have the money to get more?: Never true Within the past 12 months, did you worry whether your food would run out before you got money to buy more?: Never true Do you have trouble paying for medicines?: No Do you have trouble getting transportation to medical appointments?: No Do you have trouble paying your heating and electricity bill?: No Do you have trouble taking care of your child, family member or friend?: No Do you have trouble with day-to-day activities such as bathing, preparing meals, shopping, managing finances, etc.?: No Are you currently unemployed and looking for a job?: No Are you interested in more education?: No Please select the resources that you would like help with: None Currently or been in a relationship where the following occur: No concerns reported THRIVE Score: 0 AUDIT C Alcohol Use Questionnaire (AUDIT-C) 1. How often do you have a drink containing alcohol?: 2-3 times a week 2. How many drinks containing alcohol do you have on a typical day when you are drinking?: 1 or 2 3. How often do you have six or more drinks on one occasion?: Monthly Total Score: 5 Score Reviewed/Action Taken: Yes INOCENTE-7 AMB Questionnaire INOCENTE-7 Date INOCENTE - 7 assessed: 01/27/25 Feeling nervous, anxious, or on edge: 0 = Not at all Not being able to stop or control worryin = Not at all Worrying too much about different things: 0 = Not at all Trouble relaxin = Not at all Being so restless that it is hard to sit still: 1 = Several days Becoming easily annoyed or irritable: 1 = Several days Feeling afraid as if something awful might happen: 0 = Not at all Total INOCENTE-7 score (0-4 normal; 5-9 mild; 10-14 moderate; 15-21 severe): 2 Source: Developed by Drs. wDain Duncan, Valentine Samson, Jas Lees and colleagues, with an educational padmini from [employer]. INOCENTE-7 Assessment Billing INOCENTE-7 Assessment Tool: INOCENTE-7 Assessment 38448 Physical exam (Primary Care) Vital Signs: Last Vital Signs Pulse 58 01/27/25 10:09 BP 120/76 01/27/25 10:09 Pulse Ox 99 01/27/25 10:09 Oxygen Delivery Method Room Air 01/27/25 10:09 BMI result Body Mass Index 25.2 Tobacco/Smoking Status: Tobacco use Status Tobacco use date assessed 01/27/25 01/27/25 10:10 Patient Tobacco Use Status Never used Tobacco 01/27/25 10:10 e-Cigarette/Vaping Use Never Used 01/27/25 10:10 PHQ-9: PHQ-9 Score PHQ-9: Total score 0 01/27/25 10:10 Depression Screening Interpretation: Negative Thrive Assessment: Date of Thrive Assessment Date Thrive assessed 01/27/25 01/27/25 10:10 Currently or been in a relationship where the following occur: No concerns reported Coding Level of Care Code Est Pt Level 3 (60662) Diagnoses Screening PSA (prostate specific antigen) Z12.5 Elevated liver enzymes R74.8 Additional Codes INOCENTE-7 Assessment Billing - INOCENTE-7 Assessment Tool: INOCENTE-7 Assessment 37395 ([id number]) PHQ-9 - 84731 - PHQ-9 Billing: Yes ([id number]) Assessment & Plan Assessment & Plan (1) Screening PSA (prostate specific antigen): Code(s): Z12.5 - Encounter for screening for malignant neoplasm of prostate Category: Medical (2) Elevated liver enzymes: Code(s): R74.8 - Abnormal levels of other serum enzymes Category: Medical Plan . Orders: Orders Prostate Specific Antigen Scr Today Z12.5 - Encounter for screening for malignant neoplasm of prostate Hepatitis A,B,C Profile Today R74.8 - Abnormal levels of other serum enzymes Comprehensive Met. Panel Today R74.8 - Abnormal levels of other serum enzymes
--- OUTSIDE RECORDS SUMMARY | 2025-01-27 11:17 | XMS_ITS ---
Author Organization [facility] Address [address] [place] [address] Care Team Providers Care Security Guard Dispatcher Name Role Phone Satya Song Primary Care Provider Unav ailable Herson Cisse [phone] REASON FOR VISIT 02/20/24 appt Encounters Encounter [facility] [address] [address] 12/26/2023 Herson Cisse Plan Of Treatment No Information Progress Notes * Dimitri CHOPRADOB: 5 (68 yo M)Acc No.[id number]:12/26/2023 Patient:?Dimitri Chopra :1955???Age:68 Y???Sex:Male Address:[address] [place] [address] * true * Date:? Generated for Printi lisa/Misbah/eTransmitting on:?01/27/2025 11:17 AM EDT
--- OUTSIDE RECORDS SUMMARY | 2025-01-27 11:18 | XMS_ITS | Clinical Summary ---
Author Organization [address] [place] [address] [place] [phone] Phone Care Team Providers Care Clerk Guide Name Role Phone Satya Polanco NP Primary Care Provider + [phone] Allergies No known active allergies Medications allopurinoL [...] Description 11/17/2024 7:40 AM EST Office Visit [facility] [address] [facility] [address] [place] [address] Juliette Bill NP Bradycardia (Primary Dx); BARRAZA (dyspnea on exertion) from Last 3 Months Surgical History Surgery Date Site/Laterality Comments COLONOSCOPY PROCEDURE: HISTORICAL COLONOSCOPY TONSILLECTOMY PROCEDURE: HISTORICAL TONSILLECTOMY Medical History Medical History Date Comments Erectile dysfunction DX:Erectile dysfunction Cervical pain (neck) DX:Cervical pain (neck) Anxiety disorder DX:Anxiety diso rder Depression, major, in partia l remission ([facility]/HCC V24) DX:Depression, major, in par tial remission ([facility]) Family History Relation Name Status Comments Father [...] Description 05/17/2025 8:00 AM EDT Ancillary Procedure [facility] Cardiology [facility] [address] [facility] [address] [place] [phone] Health Maintenance Due Date Last Done Comments [...] age to complete this topic Meningococcal B Vaccine Aged Out No l onger eligible based on patient's age to complete [...] GEMUSE QTc 452 ms GEMUSE P Wave [place] 35 degrees GEMUSE R [place] 60 degrees GEMUSE T [place] 55 degrees GEMUSE ECG Interpretation Sinus bradycardia When compared with ECG of 05-JUN-2023 09:17, No significant change was found Confirmed by JUNE BETANCOURT ([id number]) on 11/17/2024 8:42:13 PM GEMUSE 11/17/2024 8:01 AM EST 11/17/2024 8:42 PM EST us Juliette Bill CLINICAL DOCUMENTATION CONSULTANT ECG ORDERABLES Edited Resul t - Final GEMUSE from Last 3 Months Insurance [employer] MED[employer]ARE [employer]VANTAGE Care Teams Clerk Guide Relationship Specialty Start Date End Date Satya Polanco NP [address] [place], [place] PCP - General 04/03/22
--- OUTSIDE RECORDS SUMMARY | 2025-01-27 11:18 | XMS_ITS | Patient Health Record ---
Author Organization [facility] Address [address] [facility] [place] [address] Care Team Providers Care Gallery Assistant Name Role Phone Satya Song Primary Care Provider Unav Herson [facility] Unavailable [phone] Reason For Referral No Information Medications Medication [...] Status Risk Notes Problem Acquired hallux rigidus (3127698) Hallux rigidus, left foot (M20.22) Active confirmed Problem Acquired hammer toe of right foot (1962745765586 105) Other hammer toe(s) (acquired), right foot (M20.41) Active confirmed Problem Acquired hammer toe of left foot (5876941264603 103) Other hammer toe(s) (acquired), left foot (M20.42) Active confirmed Problem Acquired hallux rigidus (8913712) Hallux rigidus, right foot (M20.21) Active confirmed [...] Inc [address] [place] [address] [id number] Dimitri Chopra Self - patient is the insured Aet [address] [place] [address] [id number] Dimitri Chopra Self - patient is the insured Medical (General) History Medical History History ICD Code Anxiety Chicken pox Depression High blood pressure Measles Mumps Arthritis Back,Hip,and Knee pain Neck pain covid-19 Depression Gout Heart disease High blood pressure Measles Mumps Chicken pox Bradycardia, controlled Surgical History Surgery Date(Month/Year) carpal tunnel surgery 2021
--- OUTSIDE RECORDS SUMMARY | 2025-01-27 11:18 | XMS_ITS | Referral Summary ---
Author Organization [facility] Address [address] [place] [address] Care Team Providers Care Precision Millwright Name Role Phone Satya Polanco Primary Care Provider Encounters Date Type Department Care Team Description 12/29/2024 11:00 AM EDT Follow-Up [facility] [address] [phone] Van Pastor MD Cervical spondylosis (Primary Dx) 11/03/2024 Telephone [facility] [address] [place] [address] Van Pastor MD Numbness from Last 3 Months Allergies No known [...] - Plan of Treatment Not on file Insurance AENA [facility] Care Teams Precision Millwright Relationship Specialty Start Date End Date Satya Polanco [address] [place], [place] [phone] PCP - General 03/07/23
--- OUTSIDE RECORDS SUMMARY | 2025-01-27 11:18 | XMS_ITS | Clinical Summary ---
Author Organization [facility] Address [address] [place] [address] Care Team Providers Care Process Pumper Name Role Phone Satya Polanco Ryan Primary Care Provider Allergies No known [...] Team Description 12/29/2024 11:00 AM EDT Follow-Up [facility] [address] [place] [address] Van Pastor MD Cervical spondylosis (Primary Dx) 11/03/2024 Telephone [facility] [address] [place], [place] [phone] Van Pastor MD Numbness from Last 3 Months Social History Tobacco [...] on patient's age to complete this topic Insurance [employer] MCR Care Teams Process Pumper Relationship Specialty Start Date End Date Satya Polanco [address] [place] [address] PCP - General 03/07/23
--- OUTSIDE RECORDS SUMMARY | 2025-01-27 11:18 | XMS_ITS ---
Author Organization [facility] thaddeus Freeland Address [address] [place] [address] Care Team Providers Care Highway Maintenance Worker Name Role Phone Satya Song Primary Care Provider Unav Herson [facility] Unavailable [phone] Allergies No Known Allergies Medications Medication SIG [...] 02/20/2024 Encounters Encounter Location Date Provider Diagnosis [facility] [address] [address] 02/20/2024 Herson Cisse Plan Of Treatment No Information Progress Notes * Dimitri CHOPRADOB: 5 (69 yo M)Acc No.[id number]:02/20/2024 Progress Notes Patient:?Dimitri CHOPRA Provider:?Herson Cisse DPM :1955???Age:68 Y???Sex:Male Israel e:02/20/2024 Address:[address] [place] [address] , [place] [address] Pcp:ANNE-MARIE Earl Subjective: * Chief Complaints: * [...] DPM Date:? 024 Generated for Clemente gonzalez/Misbah/Abdoulaye on:?01/27/2025 11:18 AM EDT
== END 2025-01-27 10:40 | disposition home or self-care (01) ==
LOC: HO.HMCC 10:01
PROVIDERS: PCP Nurse Practitioner Family; Visit Provider Nurse Practitioner Family
DX: Z12.5 Encounter for screening for malignant neoplasm of prostate (principal); R74.8 Abnormal levels of other serum enzymes

== ENCOUNTER → 2025-01-27 10:00 | Outpatient (BNVA) | payer MEDICARE, SELFPAY | PROVIDERS: PCP Nurse Practitioner Family; Visit Provider Nurse Practitioner Family | DX: R74.8 Abnormal levels of other serum enzymes (principal); E78.5 Hyperlipidemia, unspecified; I10 Essential (primary) hypertension | CPT/HCPCS: 96127; 99212 ==

== ENCOUNTER 2025-05-19 06:09 | Outpatient (REF) | payer MEDICARE, SELFPAY ==
--- OUTSIDE RECORDS SUMMARY | 2025-05-17 08:00 | XMS_ITS | Encounter Summary ---
Author Organization [facility] Address [address] [place] [address] Care Team Providers Care Early Childhood Worker Name Role Phone Satya Polanco NP Primary Care Provider + [phone] Reason for Visit * Imaging (Routine) - Authorized Specialty Diagnoses / Procedures Referred By Contac t Referred To Contact Cardiology Diagnoses BARRAZA (dyspnea on exertion) Procedures Transthoracic echocardiogram (TTE) complete with PRN contrast, bubble, strain, and 3D order panel SC TTE W 2D IMAGE COMPLETE W DOPPLER ECHO & COLOR FLOW DOPPLER ECHO SC MALLORIE 2D COMPLETE W/CONTRAST OR W & WO CONTRAST WITH DOPPLER Juliette Bill NP [address] [place] [address] Phone: tel: fax: [facility] Referral ID Status Reason Start Date Expiration Date V isits Requested Visits Authorized [id number] Authorized 11/17/2024 11/17/2025 1 1 Encounter Details Date Type Department Care Team (Latest Contact Info) Description 05/17/2025 8:00 AM EDT Ancillary Procedure [facility] - [address] [place] [phone] BARRAZA (dyspnea on exertion) Social History Tobacco Use Types Packs/Day Years Used Date Smoking Tobacco: Never Smokeless Tobacco: Never Alcohol Use Standard Drinks/Week Comments Yes 0 (1 standard drink = 0.6 oz pur e alcohol) Sex and Gender Information Value Date Recorded Sex Assigned at Not on file Legal Sex Male 10:54 PM EST Gender Identity Not on file Sexual Orientation Not on file documented as of this encounter Last Filed Vital Signs Vital Sign Reading Time Taken Comments Blood Pressure 136/80 05/17/2025 8:43 AM EDT Pulse - - Temperature - - Respiratory Rate - - Oxygen Saturation - - Inhaled Oxygen Concentration - - Weight 72.1 kg (159 lb) 05/17/2025 8:43 AM EDT Height 167.6 cm (5' 6 ) 05/17/2025 8:43 AM EDT Body Mass Index 25.66 05/17/2025 8:43 AM EDT documented in this encounter Plan of Treatment Pending Results Name Type Priority Associated Diagnoses Date/Time Transthoracic echocardiogram (TTE) complete with PRN contrast, bubble, strain, and 3D order panel Echocardiography Routine BARRAZA (dyspnea on exertion) 05/17/2025 8:44 AM EDT documented as of this encounter Visit Diagnoses Diagnosis BARRAZA (dyspnea on exertion) Other dyspnea and respiratory abnormality documented in this encounter Care Teams Early Childhood Worker Relationship Specialty Start Date End Date Satya Polanco NP [address] [place], [place] PCP - General 04/03/22 documented as of this encounter
--- OUTSIDE RECORDS SUMMARY | 2025-05-19 06:12 | XMS_ITS | Patient Health Record ---
Author Organization [facility] Address [address] [place] [address] Care Team Providers Care General Superintendent Name Role Phone PAMELA HUGGINS Primary Care Provider Bryn Kathleen Jr Unavailable Allergies No Known Allergies Reason For Referral No Information Medications Medication [...] Problem Status W/U Status Risk Notes Problem 517137828 Colon cancer screening (Z12.11) Active confirmed Problem 703110730 Personal history of colonic polyps (Z86.010) Active confirmed Problem 92831211 Encounter for other preprocedural examination (Z01.818) Active confirmed Plan Of Treatment Future Test Test Name Order Date COLONOSCOPY 02/28/2016 COLONOSCOPY 12/24/2021 COLONOSCOPY 10/08/2023 Insurance Providers Payer Name Payer Address Payer Phone Subscriber Number Group Number Insured Name Patient Relationship to Insured Coverage Start Date Coverage End Date [facility] [address] [place], [place] [id number] DARREN LEVIN Self - patient is the insured Medical (General) History Medical History History ICD Code Hypertension Gout Depression Bradycardia, negative stress test and ca rdiac monitor Colonoscopy 06/11/16, tubular adenoma x1, five-year followup Thrombocytopenia Disc disease GANESH Surgical History Surgery Date(Month/Year) left carpal tunnel surgery 2022
--- OUTSIDE RECORDS SUMMARY | 2025-05-19 06:12 | XMS_ITS | Clinical Summary ---
Author Organization [facility] Address [address] [place] [address] Care Team Providers Care Substation Operator Helper Name Role Phone Collin Satya Davis Primary Care Provider Allergies No known active [...] 83 10/20/2024 3:58 PM EST Temperature 35.9 C (96.7 F) 10/20/2024 2:56 PM EST Respiratory Rate 16 03/31/2024 9:14 AM EDT [...] of Health Annual Screening 09/29/2024 Influenza Vaccine (#1) 2025 2, 07/14/2019, 06/22/2018, Additional history exists DTaP,Tdap,and Td Vaccines (2 - Td or Tdap) 09/10/2025 09/10/2015 RSV Vaccine (60+ years old and patients) (1 - 1-dose 75+ series) 2030 Hepatitis B Vaccines Aged Out No long er eligible based on patient's age to complete this topic Insurance [employer] MCR Care Teams Substation Operator Helper Relationship Specialty Start Date End Date Satya Polanco [address] [place] [address] PCP - General 03/07/23
--- OUTSIDE RECORDS SUMMARY | 2025-05-19 06:12 | XMS_ITS | Patient Health Record ---
Author Organization [facility] Address [address] [place] [address] Care Team Providers Care Financial Accounting Manager Name Role Phone Satya Song Primary Care Provider Unav Herson [facility] Unavailable [phone] Reason For Referral No Information Medications Medication [...] Status Risk Notes Problem Acquired hallux rigidus (3389315) Hallux rigidus, left foot (M20.22) Active confirmed Problem Acquired hammer toe of right foot (1521477778098 105) Other hammer toe(s) (acquired), right foot (M20.41) Active confirmed Problem Acquired hammer toe of left foot (9752317183106 103) Other hammer toe(s) (acquired), left foot (M20.42) Active confirmed Problem Hallux rigidus, right foot (M20.21) Active confirmed [...] Inc [address] [place] [address] [id number] Dimitri Chopra Self - patient is the insured [employer] [address] [place] [address] [id number] Dimitri Chopra Self - patient is the insured Medical (General) History Medical History History ICD Code Anxiety Chicken pox Depression High blood pressure Measles Mumps Arthritis Back,Hip,and Knee pain Neck pain covid-19 Depression Gout Heart disease High blood pressure Measles Mumps Chicken pox Bradycardia, controlled Surgical History Surgery Date(Month/Year) carpal tunnel surgery 2021
[2025-05-19 08:05] LABS: Alanine Aminotransferase 51 U/L (0-40); Albumin Level 4.4 g/dL (3.5-5.0); Alkaline Phosphatase 59 U/L (39-117); Anion Gap 13 (12-20); Aspartate Amino Transferase 39 U/L (5-37); Blood Urea Nitrogen 16 mg/dL (9-16); Calcium 8.8 mg/dL (8.4-10.2); Carbon Dioxide 25 mmol/L (22-29); Chloride 107 mmol/L (96-108); Estimated Glomerular Filt Rate > 60; Potassium 4.5 mmol/L (3.3-5.1); Sodium 140 mmol/L (135-145); Total Protein 6.7 g/dL (6.5-8.0)
[2025-05-19 08:32] LABS: HBS Num1 0.82 mIU/mL (0-7.99); HBc Num1 0.03 S/CO (0.00-0.79); HBsAGNum1 0.54 S/CO (0.00-0.99); Hepatitis A Antibody IgM 0.23 Index (0-0.79); Hepatitis B Surface Antigen Negative (Negative); ~HepC Num1 0.19 S/CO (0.00-0.79); ~Hepatitis A Antibody IgM Nonreactive (Nonreactive); ~Hepatitis B Surface Antibody NONREACTIVE (Nonreactive); ~Hepatitis C Antibody Nonreactive (Nonreactive)
== END 2025-05-19 06:10 | disposition home or self-care (01) ==
LOC: HO.LAB 06:09
PROVIDERS: PCP Nurse Practitioner Family; Visit Provider Nurse Practitioner Family
DX: Z12.5 Encounter for screening for malignant neoplasm of prostate (principal); R74.8 Abnormal levels of other serum enzymes; Z11.59 Encounter for screening for other viral diseases
CPT/HCPCS: 36415; 80053; 84153; 86704; 86706; 86709; 86803; 87340

== ENCOUNTER 2025-06-27 08:12 | Outpatient (AMB) | payer MEDICARE, SELFPAY ==
--- NOTE | 2025-06-27 08:14 | AM.OFFWIN_ITS ---
Intake Vital Signs 06/27/25 08:18 Height 5 ft 6 in BP 130/70 Blood Pressure Location Lt brachial Position Sitting Pulse 50 Pulse Source Pulse Oximeter Temp 97.9 F Temp Source Oral Pulse Oximetry (%) 98 Intake Visit Reasons: EP-lt hand pain & mid finger infection Patient Tobacco Use Status: Never used Tobacco Allergies No Known Allergies Allergy (Verified 06/27/25 08:18) Do you need a note to return to daycare/school/sports/work: No HPI HPI Comments History of Present Illness Details 69 y/o Male patient who presents to the walk in clinic with c/o Left Hand pain and swelling for 1 week. He is Left Handed - for the past month he has been playing Golf. Reports pain with Making a Fist, Extending Hand and Flexing wrist. He has not used any OTC pain medication. Denies Injury or trauma to the hand. [facility] Medical History Retrognathia Bradycardia Anxiety Thrombocytopenia Gout Depression GANESH (obstructive sleep apnea) Essential hypertension Erectile dysfunction Surgical History S/P placement of hypoglossal nerve stimulator History of carpal tunnel surgery of left wrist H/O colonoscopy History of tonsillectomy Family History Father Unknown family medical history Mother Unknown family medical history Social History Housing: House Alcohol intake: current Patient Tobacco Use Status: Never used Tobacco e-Cigarette/Vaping Use: Never Used Second Hand Smoke Exposure: No service: No Current occupational status: retired Cognitive needs: No Hearing needs: No Vision needs: No Review of Systems Const All systems reviewed & are unremarkable except as noted in HPI and below Physical Exam Vital Signs: Last Vital Signs Temp 97.9 F 06/27/25 08:18 Pulse 50 06/27/25 08:18 BP 130/70 06/27/25 08:18 Pulse Ox 98 06/27/25 08:18 Const General: no acute distress Nutritional Appearance: well nourished Orientation/consciousness: patient oriented x3 Neuro General: patient oriented x3, gait normal and moves all extremities Extrem Right upper extremity: normal to inspection and full ROM Left upper extremity: hand Details: normal to inspection, normal capillary refill, tenderness Location: of the dorsal hand, normal ROM of fingers and no swelling; no unusual warmth, no lacerations, no ecchymosis and no crepitus Psych Speech and movement: Normal speech and movement present Assessment & Plan Assessment & Plan (1) Left hand pain: Code(s): M79.642 - Pain in left hand Plan: Ordered Xray Left Hand Ice/Heat Rest Joint. NSAIDs and Acetaminophen for pain relief. Orders: Orders XR hand LT min 3V Today M79.642 - Pain in left hand Medications: New acetaminophen 1,000 mg (2 x 500 mg) PO Q6H PRN 20 caps 0RF pain M79.642 - Pain in left hand meloxicam 7.5 mg PO DAILY 20 tabs 0RF M79.642 - Pain in left hand Coding Level of Care Code Est Pt Level 4 (24482) Diagnoses Left hand pain M79.642 Time Spent (min) 20
[2025-06-27 08:18] VITALS: BP 130/70; PULSE 50; TEMP 36.6; O2SAT 98
== END 2025-06-27 09:00 | disposition home or self-care (01) ==
PROVIDERS: PCP Nurse Practitioner Family; Visit Provider Nurse Practitioner Family
DX: M79.642 Pain in left hand (principal)

== ENCOUNTER 2025-06-27 08:12 | Outpatient (REF) | payer MEDICARE, SELFPAY ==
--- OUTSIDE RECORDS SUMMARY | 2024-01-27 03:30 | XMS_ITS ---
Author Organization [facility] Address [address] [place] [id number] Care Team Providers Care Account Group Supervisor Name Role Phone PAMELA HUGGINS Primary Care Provider Bryn Kathleen Jr REASON FOR VISIT screening, hx polyps Encounters Encounter Location Date Provider Diagnosis [facility] [place] Outpatient [address] [place] [phone] 01/27/2024 Bryn Thomas Jr Encounter for screening colonoscopy Z12.11 ; Personal history of colonic polyps Z86.010 and Colon polyps K63.5 Assessments Encounter Date Diagnosis (ICD Code) Assessment Notes Treatment Notes Treatment Clinical Notes Section Notes 01/27/2024 Encounter for screening colonoscopy (ICD-10 - Z12.11) 01/27/2024 Personal history of colonic polyps (ICD-10 - Z86.010) 01/27/2024 Colon polyps (ICD-10 - K63.5) Plan Of Treatment No Information Progress Notes * DARREN LEVINDOB: 5 (69 yo M)Acc No.[id number]:01/27/2024 COLON WITH MAC Patient: JANEY SILVESTREQuinn Snow Provider: Arnie Thomas MD :1955 A ge:68 Y S ex:Male Date:01/27/2024 Address:[address] [place], [place] [address] Pcp:PAMELA HUGGINS Subjective: * Chief Complaints: * 1 . Screening, hx polyps. * Medical History: Objective: * Vitals: Assessment: * Assessment: 1. E ncounter for screening colonoscopy - Z12.11 (Primary) 2 . P ersonal history of colonic polyps - Z86.010 3 . C olon polyps - K63.5 Plan: * Treatment: * Procedure Codes: 4 5380 COLONOSCOPY AND BIOPSY, 0529F INTRVL 3+YRS PTS CLNSCP DOCD * * The named appointment provid er may or may not be the originator of this progress note, and it is not deemed complete until electronically signed by the appointment provider. Sign off status: Pending * Provider: Arnie Thomas MD Date: 0 01/27/2024 Generated for Clemente gonzalez/Misbah/Jenysmitting on: 0 06/27/2025 09:06 AM EDT
--- OUTSIDE RECORDS SUMMARY | 2024-02-20 04:30 | XMS_ITS ---
Author Organization [facility] thaddeus [facility] Address [address] [place] [address] Care Team Providers Care Portrait Artist Name Role Phone Satya Song Primary Care Provider Unav Herson Matthews Unavailable [phone] Allergies No Known Allergies Medications Medication SIG [...] 02/20/2024 Encounters Encounter Location Date Provider Diagnosis [facility] [address] [address] 02/20/2024 Herson Cisse Plan Of Treatment No Information Progress Notes * Dimitri CHOPRADOB: 5 (69 yo M)Acc No.[id number]:02/20/2024 Progress Notes Patient: Dimitri SILVESTRE Provider: Quinn Cisse DPM :1955 A ge:68 Y S ex:Male Date:02/20/2024 Address:[address] [place], [place] [id number] Pcp:Satya Polanco BROKERAGE MANAGER-BC Subjective: * Chief Complaints: * * ROS: [...] enies. C ardiovascular: Pacemaker d enies. M APPLICATION PACKAGING CONSULTANT d enies. W PW d enies. C [...] enies. W eakness d enies. I nteg.: Medel d enies. S cars d enies. C [...] 0 02/20/2024 Generated for Clemente gonzalez/Misbah/Abdoulaye on: 0 06/27/2025 09:06 AM EDT
--- NOTE | ~2025-06-27 | XR_ITS ---
EXAMINATION: XR HAND, LEFT CLINICAL INFORMATION: M79.642 - Pain in left hand COMPARISON: None available. TECHNIQUE: PA, lateral, and oblique views of the left hand. FINDINGS: No acute cortical disruption or malalignment. Mild degenerative changes in the first and fifth carpometacarpal joints. Marginal osteophyte formation at the base of the distal phalanx first digit. Well-corticated calcification in the radial aspect of the base distal phalanx first digit. No subcutaneous emphysema. No metallic or radiopaque foreign body. XR/XR hand LT min 3V IMPRESSION: Mild osteoarthrosis/osteoarthritis without acute fracture or dislocation. Electronically signed by: Jamarcus Schrader MD 06/27/2025 08:54 AM EDT
--- OUTSIDE RECORDS SUMMARY | 2025-06-27 09:06 | XMS_ITS | Clinical Summary ---
Author Organization [address] [place] [address] Address [address] [place] [address] Phone Care Team Providers Care Powerhouse Helper Name Role Phone Satya Polanco NP Primary Care Provider [phone] Allergies No known active allergies Medications allopurinoL [...] Encounters Date Type Department Care Team Description 05/17/2025 8:00 AM EDT Ancillary Procedure [facility] [address] [place] [address] BARRAZA (dyspnea on exertion) from Last 3 Months Surgical History Surgery Date Site/Laterality Comments COLONOSCOPY PROCEDURE: HISTORICAL COLONOSCOPY TONSILLECTOMY PROCEDURE: HISTORICAL TONSILLECTOMY Medical History Medical History Date Comments Erectile dysfunction DX:Erectile dysfunction Cervical pain (neck) DX:Cervical pain (neck) Anxiety disorder DX:Anxiety diso rder Depression, major, in partia l remission (CMS/HCC V24) DX:Depression, major, in par tial remission (HCC) [...] Pressure 136/80 05/17/2025 8:43 AM EDT Pulse 56 11/17/2024 7:56 AM EST Temperature - - Respiratory Rate - - Oxygen Saturation 99% 11/17/2024 7:56 AM EST Inhaled Oxygen Concentration - - Weight 72.1 kg (159 lb) 05/17/2025 8:43 AM EDT Height 167.6 cm (5' 6 ) 05/17/2025 8:43 AM EDT Body Mass Index 25.66 05/17/2025 8:43 AM EDT Plan of Treatment Health Maintenance Due Date Last Done Comments Zoster Vaccines (2 of 3) 11/05/2015 09/10/2015 Pneumococcal Vaccine: 50+ Years (2 of 2 - PCV) 07/14/2017 07/14/2016 Cholesterol Screening (Lipid Panel) 09/08/2022 Colorectal Cancer Screening: Colonoscopy 09/08/2022 Falls Risk Assessment 09/08/2022 Hepatitis C Screening 09/08/2022 Medicare Annual Wellness Visit 09/08/2022 Social Influencers of Health Screening 09/08/2022 Hypertension/CHF/CAD Annual BMP Blood Test 09/13/2022 Depression Screening 09/29/2024 COVID-19 Vaccine ( season) 2025 09/19/2021, 12/26/2020, 11/28/2020 Influenza Vaccine (#1) 2025 2, 07/14/2019, 06/22/2018, Additional history exists DTaP,Tdap,and Td Vaccines (2 - Td or Tdap) 09/10/2025 09/10/2015 RSV Immunization Adult Patients (1 - 1-dose 75+ series) 2030 HIB [...] to complete this topic RSV Immunization Patients Under 20 months Aged Out No longer eligible based on patient's age to complete this topic Varicella Vaccines Aged Out No longer eligible based on patient's age to complete this topic Procedures Procedure Name Priority Date/Time Associated Diagnosis Comments TRANSTHORACIC ECHOCARDIOGRAM (TTE) COMPLETE Routine 05/17/2025 8:44 AM EDT BARRAZA (dyspnea on exertion) from Last 3 Months Results * (ABNORMAL) TRANSTHORACIC ECHOCARDIOGRAM (TTE) COMPLETE (05/17/2025 8:44 AM EDT) LV EDV (A2C) 113 mL CV PACS LV EDV (A4C) 123 mL CV PACS LV Diastolic Volume (BP) 119 62 - 150 mL CV PACS LV ESV (A2C) 54 mL CV PACS LV ESV (A4C) 50 mL CV PACS LV Systolic Volume (BP) 52 21 - 61 mL CV PACS IVSD 0.9 0.6 - 1.0 cm CV PACS LVIDD 5.1 4.2 - 5.8 cm CV PACS LVIDS 3.5 2.5 - 4.0 cm CV PACS LVOT Diameter 2.4 cm CV PACS LVOT Mean Patricio 0.5 m/s CV PACS LVOT Mean Grad 2 mmHg CV PACS LVOT Peak VTI 21.6 cm CV PACS LVOT Peak Patricio 0.9 m/s CV PACS LVOT Peak Gradient 3 mmHg CV PACS LVPWD 0.8 0.6 - 1.0 cm CV PACS MV E' Tissue Velocity Lateral 9 cm/s CV PACS MV E' Tissue Velocity Septal 8 cm/s CV PACS Ejection Fraction (A2C) 52 % CV PACS Ejection Fraction (A4C) 59 % CV PACS Ejection Fraction (BP) 56 % CV PACS LVOT Area 4.5 cm2 CV PACS LVOT Stroke Volume 98 mL CV PACS Left Atrium Minor Bradley 5.6 cm CV PACS Left Atrium Major Bradley 6.0 cm CV PACS LA Area Sys (A2C) 23 cm2 CV PACS LA Area Sys (A4C) 25 cm2 CV PACS LA Volume (BP) 79 mL CV PACS RA Area 18.9 cm2 CV PACS RA 2D Volume 57 mL CV PACS AV Mean Gradient 2 mmHg CV PACS Ao VTI 29.2 cm CV PACS AV Peak Patricio 1.1 m/s CV PACS AV Peak Gradient 5 mmHg CV PACS AV Area Continuity Equation 3.3 cm2 CV PACS AV Area Peak Velocity 3.8 cm2 CV PACS Ascending Aorta 3.6 cm CV PACS IVC Proximal 1.6 cm CV PACS MV Deceleration Stewart 2.4 m/s2 CV PACS E Wave Deceleration Time 255(A) 119 - 242 ms CV PACS MV PHT 75 ms CV PACS MV Peak A Patricio 0.66 m/s CV PACS MV Peak E Patricio 0.61 m/s CV PACS MV Area PHT 2.9 cm2 CV PACS PV Acceleration Time 42 ms CV PACS PV Acceleration Time 42 ms CV PACS PV Peak Velocity 0.9 m/s CV PACS PV Peak Gradient 3 mmHg CV PACS RV Diastolic Basal Dimension 4.0 2.5 - 4.1 cm CV PACS TAPSE 26 mm CV PACS TR Peak Velocity 2.71 m/s CV PACS TR Peak Gradient 29 mmHg CV PACS LV ESV Index (A4C) 28 mL/m2 CV PACS LV EDV Index (A4C) 68 mL/m2 CV PACS E/E' Ratio Septal 8 CV PACS E/E' Ratio Averaged 7 CV PACS LVOT Stroke Index 54 mL/m2 CV PACS Relative Wall Thickness ratio 0.31 CV PACS LVOT:AV VTI Index 0.74 CV PACS FS 31 % CV PACS LV Mass 2D 152 g CV PACS Ascending Aorta Index 1.99 cm/m2 CV PACS LVOT flow 226 mL/s CV PACS RA 2D Volume Index 31 mL/m2 CV PACS SARAVANAN Index (VTI) 1.85 cm2/m2 CV PACS SARAVANAN Index (Pk Patricio) 2.10 cm2/m2 CV PACS LVIDD Index 2.82 cm/m2 CV PACS LVIDS Index 1.93 cm/m2 CV PACS AV Velocity Ratio 0.82 CV PACS E/A Ratio 0.9 CV PACS E/E' Ratio Lateral 7 CV PACS LV Systolic Volume Index (BP) 29 mL/m2 CV PACS LV Diastolic Volume Index (BP) 66 mL/m2 CV PACS LA Volume Index (BP) 44 mL/m2 CV PACS LV Mass Index 2D 84 g/m2 CV PACS LV EDV Index (A2C) 62 mL/m2 CV PACS LV ESV Index (A2C) 30 mL/m2 CV PACS BSA 1.83 m2 CV PACS Right Ventricular Peak Systolic Pressure 32 mmHg CV PACS Est. RA Pressure 3 mmHg CV PACS Aortic Root 3.7 cm CV PACS Aortic Root Index 2.04 cm/m2 CV PACS Anatomical Region Laterality Modality Ultrasound Narrative 06/06/2025 8:58 AM EDT Left ventricle cavity size is normal. Left ventricular systolic function is in the normal range. EF by 2D Felder biplane is 56%. No regional LV wall motion abnormalities noted. Normal LV diastolic function. Right ventricle cavity is normal. Right ventricular systolic function is normal. Mitral Valve: There is mild regurgitation. Tricuspid Valve: There is mild regurgitation. The right ventricular systolic pressure is normal. The RVSP is estimated at 32 mmHg. Pulmonic Valve: There is mild pulmonic valve regurgitation. Left Ventricle Left ventricle cavity size is normal. Wall thickness is normal. Systolic function is normal. The quantitative EF by 2D Felder biplane is 56%. There are no regional LV wall motion abnormalities. There is no diastolic dysfunction. Right Ventricle Right ventricle cavity appears normal. Systolic function is normal. Normal TAPSE (> 17 mm). Left Atrium Left atrium cavity is moderately dilated. Right Atrium Right atrium cavity is mildly dilated. There is a prominent Eustachian valve. IVC/SVC RA pressures is estimated to be 3 mmHg (IVC diameter <21 mm and decreases >50% during inspiration). Mitral Valve The leaflets are mildly thickened. There is mild annular calcification. There is mild regurgitation. There is no evidence of mitral valve stenosis. Tricuspid Valve The leaflets are mildly thickened. Tricuspid annular calcification. There is mild regurgitation. There is no evidence of tricuspid valve stenosis. The right ventricular systolic pressure is normal. The RVSP is estimated at 32 mmHg. Aortic Valve The aortic valve is trileaflet. There is no significant regurgitation. There is no evidence of aortic valve stenosis. Pulmonic Valve Visualized portions of the pulmonic valve appear normal. There is mild pulmonic valve regurgitation. No significant pulmonary valve stenosis noted. Ascending Aorta The aorta appears normal in size. Pericardium Pericardium appears normal. There is no pericardial effusion. Study Details Overall the study quality was technically difficult. Juliette Bill NP CV ECHO PROCEDURES Final Res ult from Last 3 Months Insurance [employer] MED[employer]ARE [employer]VANTAGE Care Teams Powerhouse Helper Relationship Specialty Start Date End Date Satya Polanco NP [address], [place] PCP - General 04/03/22
--- OUTSIDE RECORDS SUMMARY | 2025-06-27 09:06 | XMS_ITS | Patient Health Record ---
Author Organization [facility] Address [address] [place] [address] Care Team Providers Care Rate Supervisor Name Role Phone Satya Song Primary Care Provider Unav Herson Matthews Unavailable [phone] Reason For Referral No Information Medications Medication [...] Status Risk Notes Problem Acquired hallux rigidus (3911270) Hallux rigidus, left foot (M20.22) Active confirmed Problem Acquired hammer toe of right foot (6990791886438 105) Other hammer toe(s) (acquired), right foot (M20.41) Active confirmed Problem Acquired hammer toe of left foot (0293612294200 103) Other hammer toe(s) (acquired), left foot (M20.42) Active confirmed Problem Acquired hallux rigidus (6394700) Hallux rigidus, right foot (M20.21) Active confirmed [...] Inc [address] [place] [address] [id number] Dimitri Chopra Self - patient is the insured Aet [address] [place] [address] [id number] Dimitri Chopra Self - patient is the insured Medical (General) History Medical History History ICD Code Anxiety Chicken pox Depression High blood pressure Measles Mumps Arthritis Back,Hip,and Knee pain Neck pain covid-19 Depression Gout Heart disease High blood pressure Measles Mumps Chicken pox Bradycardia, controlled Surgical History Surgery Date(Month/Year) carpal tunnel surgery 2021
--- OUTSIDE RECORDS SUMMARY | 2025-06-27 09:06 | XMS_ITS | Patient Health Record ---
Author Organization [facility] Address [address] [place] [address] Care Team Providers Care Physician Relations Representative Name Role Phone PAMELA HUGGINS Primary Care [...] Problem Status W/U Status Risk Notes Problem [id number] Colon cancer screening (Z12.11) Active confirmed Problem [id number] Personal history of colonic polyps (Z86.010) Active confirmed Problem 93658162 Encounter for other preprocedural examination (Z01.818) Active confirmed Plan Of Treatment Future Test Test Name Order Date COLONOSCOPY 02/28/2016 COLONOSCOPY 12/24/2021 COLONOSCOPY 10/08/2023 Insurance Providers Payer Name Payer Address Payer Phone Subscriber Number Group Number Insured Name Patient Relationship to Insured Coverage Start Date Coverage End Date [facility] [address] [place], [place] [id number] DARREN LEVIN Self - patient is the insured Medical (General) History Medical History History ICD Code Hypertension Gout Depression Bradycardia, negative stress test and ca rdiac monitor Colonoscopy 06/11/16, tubular adenoma x1, five-year followup Thrombocytopenia Disc disease GANESH Surgical History Surgery Date(Month/Year) left carpal tunnel surgery 2022
--- OUTSIDE RECORDS SUMMARY | 2025-06-27 09:07 | XMS_ITS | Clinical Summary ---
Author Organization [facility] Address [address] [place] [address] Care Team Providers Care Director Dietetics Department Name Role Phone Collin Satya Davis Primary [...] (2 of 2 - PCV) 07/14/2017 07/14/2016 Alcohol/Substance Use Screening 09/29/2024 Depression Screening and Follow-Up 09/29/2024 Health Care Proxy Review 09/29/2024 Social Drivers of Health Annual Screening 09/29/2024 COVID-19 Vaccine ( season) 2025 09/19/2021, 12/26/2020, 11/28/2020 Influenza Vaccine (#1) 2025 , 07/14/2019, 06/22/2018, Additional history exists DTaP,Tdap,and Td Vaccines (2 - Td or Tdap) 09/10/2025 09/10/2015 RSV Vaccine (60+ years old and patients) (1 - 1-dose 75+ series) 2030 Hepatitis B Vaccines Aged Out No long er eligible based on patient's age to complete this topic Insurance [employer] MCR Care Teams Director Dietetics Department Relationship Specialty Start Date End Date Satya Polanco [address] [place] [address] PCP - General 03/07/23
== END 2025-06-27 08:13 | disposition home or self-care (01) ==
LOC: HO.HMGCX 08:12
PROVIDERS: PCP Nurse Practitioner Family; Visit Provider Nurse Practitioner Family
DX: M79.642 Pain in left hand (principal)
CPT/HCPCS: 73130; 99212

== ENCOUNTER → 2025-06-27 08:42 | Outpatient (BNV) | payer MEDICARE, SELFPAY | PROVIDERS: PCP Nurse Practitioner Family; Visit Provider Radiology Diagnostic Radiology | DX: M79.642 Pain in left hand (principal) | CPT/HCPCS: 73130 ==

== ENCOUNTER 2025-08-02 09:47 | Outpatient (AMB) | payer MEDICARE, SELFPAY ==
--- OUTSIDE RECORDS SUMMARY | 2024-02-20 03:30 | XMS_ITS ---
Author Organization [facility] Address [address] [place] [address] Care Team Providers Care Supervisor Gas Meter Repair Name Role Phone Satya Song Primary Care Provider Unav ailable Herson Bagley Unavailable [phone] Allergies No Known Allergies Medications Medication SIG (Take, Route, Frequency, Duration) Notes Start Date End Date Status amLODIPine Besylate 10 MG 1 tablet Orall y Once a day Active Allopurinol 100 MG 1 tablet Orally Once a day Active Lisinopril 5 MG 1 tablet Orally Once a day Active Fluoxetine Active Atorvastatin Calcium 10 MG 1 tablet Oral ly Once a day Active Social History Tobacco Use: Social History Observation Description Date Details (start date - stop date) Never Smoker NA - NA Tobacco Use/Smoking Question Answer Notes Are you a: nonsmoker Alcohol Screen Question Answer Notes Did you have a drink contain ing alcohol in the past year? Yes How often did you have a dri nk containing alcohol in the past year? 2 to 4 times a month (2 points) Points 2 Interpretation Negative Tobacco use other than smoking: Question Answer Notes Are you an other tobacco user? No Vital Signs Height 5ft 6in in 02/20/2024 Weight 160 lbs 02/20/2024 BMI 25.82 kg/m2 02/20/2024 Encounters Encounter Location Date Provider Diagnosis [facility] [place] [address] [address] 02/20/2024 Herson Bagley Plan Of Treatment No Information Progress Notes * Dimitri CHOPRADOB: 5 (69 yo M)Acc No.[id number]:02/20/2024 Progress Notes Patient: Dimitri SILVESTRE Provider: Quinn Cisse DPM :1955 A ge:68 Y S ex:Male Date:02/20/2024 Address:[address] [place], [place] [id number] Pcp:Satya Polanco APPELLATE LAW CLERK-MENA Subjective: * Chief Complaints: * * ROS: G eneral/Constitutional: Nausea d enies. V omiting d enies. H alessandro Thirst d enies. L oss appetite d enies. C hills d enies. F atigue d enies.?Fever d enies. N ight Sweats d enies. U nexplained weight loss d enies. U nexplained weight gain d enies. H EENTM: Dentures d enies. D izziness d enies. G lasses/contacts a dmits. R etinopathy d enies. B lurred/double vision d enies. T MJ?denies. D ischarge/drainage d enies. I mplants d enies. S ore throat d enies. D ental implants d enies. H madyson of hearing d enies. D ifficulty chewing/swallowing/speaking d enies. N ose bleeds d enies. S ore mouth d enies. ? R espiratory: On Oxygen d enies. P neumonia/pleurisy d enies.?Bronchitis d enies. E mphysema d enies. C oughing d enies. C ough blood?denies. S hortness of breath d enies. W heezing d enies. C ardiovascular: Pacemaker d enies. M ASSISTANT SIGNAL MAINTAINER d enies. W PW d enies. C HF d enies. H eart attack d enies. S eptal defect d enies. R apid beat d enies. C hest pain d enies. A trial Fib. d enies. M urmur/Palpitations d enies. G astrointestinal: Hemorrhoids d enies. S tomach/Abdominal pain d enies. D ark blood stool d enies. I rritable bowel d enies. C onstipation d enies. D iarrhea d enies. H ematology: Swelling d enies. C lots d enies. V aricose Veins d enies. B ruising d enies. B leeding problem d enies. G enitourinary: Blood urine d enies. F requent/Painfu/urination/bladder control d enies. K idney stones d enies. I nfection (UTI) d enies. N ephropathy d enies. s ex trans dis (STD) d enies. P rostate d enies. M usculoskeletal: Hammertoes a dmits. B unions a dmits. B ack Pain d enies. M uscle Cramps/ Resting d enies. M uscle cramps / walking d enies.?Generalized aches and pains d enies. W eakness d enies. I nteg.: Medle d enies. S cars d enies. C orns/calluses?admits. I ngrown nails d enies. P ainful nails d enies. O pen Sores d enies. R ashes d enies. N eurologic: Difficulty sleeping d enies. B rain disorder d enies. N umbness d enies. B alance trouble d enies. C onfusion d enies. F ainting/blackouts d enies. T ingling d enies. T remors d enies. * Medical History: A rthritis, Back,Hip,and Knee pain, Neck pain, Covid-19, Depression, Gout, Heart disease, High blood pressure, Measles, Mumps, Chicken pox, Bradycardia, controlled. * Surgical History: c arpal tunnel surgery 2021. * Family History: M other: . F ather: . * Social History: T obacco Use: T obacco Use/Smoking A re you a: n onsmoker Tobacco use other than smoking A re you an other tobacco user? N o D rugs/Alcohol: D rugs H ave you used drugs other than those for medical reasons in the past 12 months? N o Alcohol Screen D id you have a drink containing alcohol in the past year? Y es H ow often did you have a drink containing alcohol in the past year? 2 to 4 times a month (2 points) P oints 2 I nterpretation N egative M iscellaneous: C affeine: yes. Exercise: yes, gardening/yard work, walking. Marital status: . Occupation: Retired. * Medications: T aking Allopurinol 100 MG Tablet 1 tablet Orally Once a day , Taking amLODIPine Besylate 10 MG Tablet 1 tablet Orally Once a day , Taking Atorvastatin Calcium 10 MG Tablet 1 tablet Orally Once a day , Taking Fluoxetine , Taking Lisinopril 5 MG Tablet 1 tablet Orally Once a day * Allergies: N .K.D.A. Objective: * Vitals: H t: 5ft 6in, Wt:160, BMI:25.82, Shoe size: 8.5, Ht-cm: 167.64 cm, Wt-k.57 kg. Assessment: Plan: * Treatment: * Images: * The named appointment provid er may or may not be the originator of this progress note, and it is not deemed complete until electronically signed by the appointment provider. Sign off status: Pending * Provider: Quinn Cisse DPM Date: 0 02/20/2024 Generated for Clemente gonzalez/Misbah/Abdoulaye on: 10/02/2024 11:10 AM EST
[2025-08-02 09:52] VITALS: BP 142/78; PULSE 50; RESP 16; TEMP 36.9; O2SAT 99; BMI 26.1
--- NOTE | 2025-08-02 09:52 | A.OFFPC_ITS ---
Vital Signs 08/02/25 09:52 Height 5 ft 6 in Weight 162 lb BMI 26.1 BP 142/78 H Position Sitting Respiration 16 Pulse 50 Pulse Source Pulse Oximeter Temp 98.5 F Temp Source Oral Pulse Oximetry (%) 99 Oxygen Delivery Method Room Air Intake Visit Reasons: PE/ok per [employer] Customer Service Required: No Accompanied by: Self / Same As Patient Allergies No Known Allergies Allergy (Verified 06/27/25 08:18) Tobacco use date assessed: 08/02/25 Fall risk assessment: No Falls in past year Last assessed Fall Risk: 08/02/25 Dental Screening Dental Screen Date: 08/02/25 Did you have a dental visit in the last 12 months?: Yes Did you have a dental problem in the last 6 months where you did not have access to dental care?: No Was dental information given to patient?: Patient has dentist HPI PE/ok per HPI0 Details History of Present Illness The patient is a 69 year old male presenting for a physical exam. The patient has a history of bradycardia and has been seen by cardiology in the past for this issue. He is completely asymptomatic, reports feeling quite well overall, and denies any fevers, chills, nausea, vomiting, diarrhea, chest pain, abdominal pain, or blood in stool. His Cologuard is up-to-date. Bp slightly elevated, will have him take BPs from home. Lastly, left middle finger, cutical region with small intermittently tender lesion, it drains a honey colored liquid when i squeeze it . Health Maintenance The patient presented for a routine physical exam. Lab orders were entered. His Cologuard for colon cancer screening is noted to be up-to-date. Vaccinations were reviewed, and he is due for updated immunizations. Social History Review of Systems - General: Reports feeling well. Denies fevers or chills. - Cardiovascular: Denies chest pain. - Gastrointestinal: Denies nausea, vomit ing, diarrhea, constipation, abdominal pain, or blood in stool. - denies urinary symptoms Physical Exam General: Cooperative, healthy appearing, comfortable, no acute distress and well developed Orientation: Patient oriented x3 Limitations: No limitations Head: Normal to inspection Ears: Hearing grossly normal bilaterally Nose: Normal external nose present Face and sinus: Normal facial exam Eyes: Appearance normal, both eyes and all related structures Neck: Normal visual inspection and Yes full ROM Respiratory: Normal respiratory effort and able to speak in complete sentences. Clear to auscultation bilaterally Cardiovascular: Bradycardic. Regular rate and rhythm. Normal S1 and S2 GI: Normal to inspection. Soft to palpation and nontender : testicles without masses/lesions and no hernias appreciated Skin: right middle finger, cutical with nodular/vesicular lesion slightly tender with touch Neuro: Patient oriented x3 Extremities: Normal to inspection Results - Tests and Diagnostics: Cologuard is up -to-date. Plan 1. Bradycardia The patient has a history of bradycardia and has been evaluated by cardiology multiple times. He is completely asymptomatic and feels well, so no acute intervention is planned. 2. PE 3. will take BP at home, send me values in the near future via the portal Discussion Notes Patient Instructions [facility] Medical History Left hand pain Retrognathia Bradycardia Anxiety Thrombocytopenia Gout Depression GANESH (obstructive sleep apnea) Essential hypertension Erectile dysfunction Surgical History S/P placement of hypoglossal nerve stimulator History of carpal tunnel surgery of left wrist H/O colonoscopy History of tonsillectomy Family History Father Unknown family medical history Mother Unknown family medical history Social History Housing: House Alcohol intake: current Patient Tobacco Use Status: Never used Tobacco e-Cigarette/Vaping Use: Never Used Second Hand Smoke Exposure: No service: No Current occupational status: retired Cognitive needs: No Hearing needs: No Vision needs: No Questionnaire PHQ-9 Over the last 2 weeks, how often have you been bothered by any of the following problems? 1. Little interest or pleasure in doing things: not at all 2. Feeling down, depressed, or hopeless: not at all 3. Trouble falling or staying asleep, or sleeping too much: not at all 4. Feeling tired or having little energy: not at all 5. Poor appetite or overeating: not at all 6. Feeling bad about yourself - or that you are a failure or have let yourself or your family down: not at all 7. Trouble concentrating on things, such as reading the newspaper or watching television: not at all 8. Moving or speaking so slowly that other people could have noticed. Or the opposite - being so fidgety or restless that you have been moving around a lot more than usual: not at all 9. Thoughts that you would be better off or of hurting yourself in some way: not at all Total score: 0 Depression Screening Interpretation: Negative Depression Screening Done: Yes 43924 - PHQ-9 Billing: Yes Source: Developed by Drs. Dwain Duncan, Valentine Samson, Jas Lees and colleagues, with an educational padmini from [employer]. Thrive Questionnaire Date Thrive assessed: 01/27/25 INOCENTE-7 AMB Questionnaire INOCENTE-7 Date INOCENTE - 7 assessed: 08/02/25 Feeling nervous, anxious, or on edge: 0 = Not at all Not being able to stop or control worryin = Not at all Worrying too much about different things: 0 = Not at all Trouble relaxin = Not at all Being so restless that it is hard to sit still: 0 = Not at all Becoming easily annoyed or irritable: 0 = Not at all Feeling afraid as if something awful might happen: 0 = Not at all Total INOCENTE-7 score (0-4 normal; 5-9 mild; 10-14 moderate; 15-21 severe): 0 Source: Developed by Drs. Dwain Duncan, Valentine Samson, Jas Lees and colleagues, with an educational padmini from [employer]. INOCENTE-7 Assessment Billing INOCENTE-7 Assessment Tool: INOCENTE-7 Assessment 50530 Physical exam (Primary Care) Vital Signs: Last Vital Signs Temp 98.5 F 08/02/25 09:52 Pulse 50 08/02/25 09:52 Resp 16 08/02/25 09:52 BP 142/78 H 08/02/25 09:52 Pulse Ox 99 08/02/25 09:52 Oxygen Delivery Method Room Air 08/02/25 09:52 BMI result Body Mass Index 26.1 Tobacco/Smoking Status: Tobacco use Status Tobacco use date assessed 08/02/25 08/02/25 09:58 Patient Tobacco Use Status Never used Tobacco 08/02/25 09:52 e-Cigarette/Vaping Use Never Used 08/02/25 09:52 PHQ-9: PHQ-9 Score PHQ-9: Total score 0 08/02/25 09:58 Depression Screening Interpretation: Negative Thrive Assessment: Date of Thrive Assessment Date Thrive assessed 01/27/25 08/02/25 09:52 Coding Level of Care Code Est Pt Prev Care >65y(36020) Diagnoses Physical exam Z00.00 Screening PSA (prostate specific antigen) Z12.5 Gout M10.9 Vitamin D deficiency E55.9 Additional Codes INOCENTE-7 Assessment Billing - INOCENTE-7 Assessment Tool: INOCENTE-7 Assessment 06623 ([id number]) PHQ-9 - 65556 - PHQ-9 Billing: Yes ([id number]) Assessment & Plan Assessment & Plan (1) Physical exam: Code(s): Z00.00 - Encounter for general adult medical examination without abnormal findings Category: Medical (2) Screening PSA (prostate specific antigen): Code(s): Z12.5 - Encounter for screening for malignant neoplasm of prostate Category: Medical (3) Gout: Code(s): M10.9 - Gout, unspecified Category: Medical (4) Vitamin D deficiency: Code(s): E55.9 - Vitamin D deficiency, unspecified Category: Medical Plan . Orders: Orders UA CC w/rflx Micro + Cult Today Z00.00 - Encounter for general adult medical examination without abnormal findings Lipid Panel Today Z00.00 - Encounter for general adult medical examination without abnormal findings Uric Acid Today M10.9 - Gout, unspecified Vitamin D 25-OH Total Today E55.9 - Vitamin D deficiency, unspecified Complete Blood Count Auto Diff Today Z00.00 - Encounter for general adult medical examination without abnormal findings Comprehensive [place]. Panel Fast Today Z00.00 - Encounter for general adult medical examination without abnormal findings TSH reflex Free T4 Today Z00.00 - Encounter for general adult medical examination without abnormal findings Prostate Specific Antigen Scr Today Z12.5 - Encounter for screening for malignant neoplasm of prostate Medications: New mupirocin 2% (Cent[place]) 1 appl topical BID 22 grams 0RF
--- OUTSIDE RECORDS SUMMARY | 2025-08-02 11:10 | XMS_ITS | Patient Health Record ---
Author Organization [facility] Address [address] [place] [address] Care Team Providers Care Stock Broker Name Role Phone PAMELA HUGGINS Primary Care [...] at 5:00 p.m. the day before the procedure; Duration: 1 day 10/08/2023 Active Allopurinol 100 MG [...] Problem Status W/U Status Risk Notes Problem Colon cancer screening (775520739) Colon cancer screening (Z12.11) Active confirmed Problem History of polyp of colon (situation) (667386135) Personal history of colonic polyps (Z86.010) Active confirmed Problem Pre-procedure evaluation check (560970570) Encounter for other preprocedural examination (Z01.818) Active confirmed Plan Of Treatment Future Test Test Name Order Date COLONOSCOPY 02/28/2016 COLONOSCOPY 12/24/2021 COLONOSCOPY 10/08/2023 Insurance Providers Payer Name Payer Address Payer Phone Subscriber Number Group Number Insured Name Patient Relationship to Insured Coverage Start Date Coverage End Date [facility] [address] [place], [place] [phone] [id number] DARREN LEVIN Self - patient is the insured Medical (General) History Medical History History ICD Code Hypertension Gout Depression Bradycardia, negative stress test and ca rdiac monitor Colonoscopy 06/11/16, tubular adenoma x1, five-year followup Thrombocytopenia Disc disease GANESH Surgical History Surgery Date(Month/Year) left carpal tunnel surgery 2022
--- OUTSIDE RECORDS SUMMARY | 2025-08-02 11:10 | XMS_ITS | Patient Health Record ---
Author Organization [facility] Address [address] [place] [address] Care Team Providers Care Vibration Analyst Name Role Phone Satya Song Primary Care Provider Unav ailable Herson Bagley Unavailable [phone] Reason For Referral No Information Medications Medication [...] Status Risk Notes Problem Acquired hallux rigidus (7949357) Hallux rigidus, left foot (M20.22) Active confirmed Problem Acquired hammer toe of right foot (3553262082559 105) Other hammer toe(s) (acquired), right foot (M20.41) Active confirmed Problem Acquired hammer toe of left foot (4085193034722 103) Other hammer toe(s) (acquired), left foot (M20.42) Active confirmed Problem Acquired hallux rigidus (3825390) Hallux rigidus, right foot (M20.21) Active confirmed Plan Of Treatment Pending Test Test Name Order Date X ray : Foot, left 2V 01/24/2017 X ray : Foot, right 2V 01/24/2017 Insurance Providers Payer Name Payer Address Payer Phone Subscriber Number Group Number Insured Name Patient Relationship to Insured Coverage Start Date Coverage End Date Medicare [employer] [address] [place] [address] [id number] Dimitri Chopra Self - patient is the insured [facility] [address] [place] [address] [id number] Dimitri Chopra Self - patient is the insured Medical (General) History Medical History History ICD Code Anxiety Chicken pox Depression High blood pressure Measles Mumps Arthritis Back,Hip,and Knee pain Neck pain covid-19 Depression Gout Heart disease High blood pressure Measles Mumps Chicken pox Bradycardia, controlled Surgical History Surgery Date(Month/Year) carpal tunnel surgery 2021
--- OUTSIDE RECORDS SUMMARY | 2025-08-02 11:11 | XMS_ITS | Clinical Summary ---
Author Organization [facility] Address [address] [place] [address] Care Team Providers Care Calculus Tutor Name Role Phone Collin Satya Davis Primary [...] this topic Insurance [employer] MCR Care Teams Calculus Tutor Relationship Specialty Start Date End Date Satya Polanco [address] [place] [address] PCP - General 03/07/23
--- OUTSIDE RECORDS SUMMARY | 2025-08-02 11:11 | XMS_ITS | Clinical Summary ---
Author Organization [address] [place] [address] Address [address] [place] [address] Phone Care Team Providers Care Roller Billet Mill Name Role Phone Satya Polanco NP Primary Care Provider [phone] Allergies No known active allergies Medications allopurinoL [...] sedation effects. Cardiovascular function study, abnormal 05/22/20 Encounters Date Type Department Care Team Description 05/17/2025 8:00 AM EDT Ancillary Procedure [facility] [address] [place] [address] BARRAZA (dyspnea on exertion) from [...] Health Maintenance Due Date Last Done Comments Colorectal Cancer Screening: Colonoscopy 1955 Zoster Vaccines (2 of 3) 11/05/2015 09/10/2015 Pneumococcal Vaccine: 50+ Years (2 of 2 - PCV) 07/14/2017 07/14/2016 Cholesterol Screening (Lipid Panel) 09/08/2022 Falls Risk Assessment 09/08/2022 Hepatitis C [...] 98 mL CV PACS Left Atrium Minor Dewitt 5.6 cm CV PACS Left Atrium Major Dewitt 6.0 cm CV PACS LA Area Sys [...] Proximal 1.6 cm CV PACS MV Deceleration Eddy 2.4 m/s2 CV PACS E Wave Deceleration [...] Months Insurance [employer] MEDICARE ADVANTAGE Care Teams Roller [employer]illet Mill Relationship Specialty Start Date End Date Satya Polanco NP [address] [place], [place] PCP - General 04/03/22
== END 2025-08-02 10:37 | disposition home or self-care (01) ==
LOC: HO.HMCC 09:47
PROVIDERS: PCP Nurse Practitioner Family; Visit Provider Nurse Practitioner Family
DX: Z00.00 Encounter for general adult medical examination without abnormal findings (principal); Z12.5 Encounter for screening for malignant neoplasm of prostate; M10.9 Gout, unspecified; E55.9 Vitamin D deficiency, unspecified

== ENCOUNTER → 2025-08-02 09:47 | Outpatient (BNVA) | payer MEDICARE, SELFPAY | PROVIDERS: PCP Nurse Practitioner Family; Visit Provider Nurse Practitioner Family | DX: Z00.00 Encounter for general adult medical examination without abnormal findings (principal); R00.1 Bradycardia, unspecified; M10.9 Gout, unspecified; E55.9 Vitamin D deficiency, unspecified | CPT/HCPCS: 96127; 99397 ==